=== PATIENT | male | born 1970 | race Caucasian/White ===

== ENCOUNTER 2019-10-01 16:17 | Emergency (ER) | payer BC, SELFPAY ==
--- OUTSIDE RECORDS SUMMARY | 2019-10-01 16:19 | XMS REPORT | Clinical Summary ---
:1970 Author Organization [facility] Address [address] [place] [address] Care Team Providers Name Role Phone Asked, No Pcp Primary Care Provider Unavailable Allergies Active Allergy Reactions Severity Noted Date Comments Cat Dander Shortness Of Breath High 09/21/2017 Cat's Claw (Uncaria Tomentosa) 09/21/2017 Dog Dander Shortness Of Breath High 09/21/2017 Eggshell Membrane 09/21/2017 Unknown Penicillins Rash Low 09/21/2017 Medications Medication Sig Dispensed Refills Start Date End Date Status albuterol (ACCUNEB) Take 1 ampule by 0 Active 1.25 mg/3 mL nebulization every 6 nebulizer solution (six) hours as needed for wheezing. Active Problems Not on file Encounters Date Type Specialty Care Team Description 07/31/2019 Emergency Emergency Medicine Major Winchester MD Acute lower GI bleeding Jose Pierson (Primary Dx) Daphnie Ayala MD 07/31/2019 Travel after 09/30/2018 Social History Tobacco Use Types Packs/Day Years Used Date Current Every Day Smoker 0.5 30 Smokeless Tobacco: Current User Tobacco Cessation: Ready to Quit: Yes; C ounseling Given: Yes Alcohol Use Drinks/Week oz/Week Comments No former Sex Assigned at Date Recorded Not on file Job Start Date Occupation Industry Not on file Not on file Not on file Travel History Travel Start Travel End No recent travel history available. Last Filed Vital Signs Vital Sign Reading Time Taken Comments Blood Pressure 126/83 07/31/2019 8:30 PM CDT Pulse 96 07/31/2019 8:30 PM CDT Temperature 36.6 C (97.9 F) 07/31/2019 6:37 PM CDT Respiratory Rate 18 07/31/2019 8:30 PM CDT Oxygen Saturation 99% 07/31/2019 8:30 PM CDT Inhaled Oxygen Concentration - - Weight 74.8 kg (165 lb) 07/31/2019 6:32 PM CDT Height 180.3 cm (5' 11") 07/31/2019 6:32 PM CDT Body Mass Index 23.01 07/31/2019 6:32 PM CDT Plan of Treatment Health Maintenance Due Date Last Done Comments COLONOSCOPY SCREENING 2018 SHINGLES VACCINES (#1) 2018 INFLUENZA VACCINE 11/18/2019 Procedures Procedure Name Priority Date/Time Associated Comments Diagnosis CT ABDOMEN PELVIS W STAT 07/31/2019 7:37 Resu lts for this CONTRAST PM CDT procedure are i n the results section. ESTIMATED GFR STAT 07/31/2019 6:40 Results fo r this PM CDT procedure are i n the results section. AMYLASE LEVEL STAT 07/31/2019 6:40 Results fo r this PM CDT procedure are i n the results section. COMPREHENSIVE STAT 07/31/2019 6:40 Results fo r this METABOLIC PANEL PM CDT procedure ar e in the results section. HC COMPLETE BLD COUNT STAT 07/31/2019 6:40 Re sults for this W/AUTO DIFF PM CDT procedure are i n the results section. after 09/30/[address] Abdomen Pelvis W Contrast (07/31/2019 7:37 PM CDT) Specimen Narrative Performed At EXAMINATION: CT ABDOMEN PELVIS W CONTR AST [facility] CLINICAL HISTORY: 48 yearsMale Abdominal pain rectal bleeding TECHNIQUE: Multidetector computed axial tomography of the abdomen and pelvis was preformed after the uncomplicated intraveno us administration of IV contrast utilizing automated exposure control an d/or iterative reconstruction techniques to radiation dose. Coronal and sagittal reformatted image s created at the CT scanner medical technologist blood bank were also sub mitted for interpretation. COMPARISON: None available. IMPRESSION: LUNG BASES: Clear. No pericardial effusi on. ABDOMEN: Liver: Nonenlarged without focal or suspicious hepatic mass. A 8mm hypodensity present within the dome of the liver sugge stive of simple cysts. Gallbladder/Biliary: The gallbladder is contracted but otherwise unremarkable. There is no evidence of intra or extrahe patic biliary ductal dilatation. Spleen: The spleen is not enlarged. Pancreas: The pancreas is unremarkable. Adrenal Glands: The adrenal glands are u nremarkable. Kidneys: The kidneys are unremarkable. No mass, hydron ephrosis or calculi. Vascular: The abdominal aorta is nonaneu rysmal. Nodes: No enlarged retroperitoneal or me senteric lymphadenopathy. Gastrointestinal tract: *Nonobstructive bowel gas pattern. *A few nonspecific fluid-filled loops of small bowel m ay be seen in the setting of a gastroenteritis. *A few colonic diverticula are noted without evidence of diverticulitis. *The appendix is normal. Ascites/fluid collections: No ascites or fluid collections. PELVIS: *The prostate and seminal vesicles are n ormal. *Mild prominence the wall the bladder is likely second rey to underdistention. *No inguinal hernia. *No pelvic mass, free fluid or significa nt lymphadenopathy. MUSCULOSKELETAL: *No acute or suspicious osseous abnormal ity. SUMMARY: 1.CT findings which may be seen in the setting of a ga stroenteritis, clinical correlation recommended. 2.Other findings as above. [id number] Procedure Note [facility], Radiology Results Incoming - 07/31/2019 7:53 PM CDT EXAMINATION: CT ABDOMEN PELVIS W CONTRAST CLINICAL HISTORY: 48 yearsMale Abdominal pain rectal bleeding TECHNIQUE: Multidetector computed axial tomography of the abdomen and pelvis was preformed after the uncomplicated intravenous administration of IV contrast utilizing automated exposure control and/or iterative reconstruction techniques to radiation dose. Coronal and sagittal ref ormatted images created at the CT scanner medical technologist blood bank were also submitted for interpretation. COMPARISON: None available. IMPRESSION: LUNG BASES: Clear. No pericardial effusi on. ABDOMEN: Liver: Nonenlarged without focal or susp icious hepatic mass. A 8mm hypodensity present within the dome of the liver suggestive of simple cysts. Gallbladder/Biliary: The gallbladder is contracted but otherwise unremarkable. There is no evidence of intra or extrahepatic biliary ductal dilatation. Spleen: The spleen is not enlarged. Pancreas: The pancreas is unremarkable. Adrenal Glands: The adrenal glands are u nremarkable. Kidneys: The kidneys are unremarkable. N o mass, hydronephrosis or calculi. Vascular: The abdominal aorta is nonaneu rysmal. Nodes: No enlarged retroperitoneal or me senteric lymphadenopathy. Gastrointestinal tract: *Nonobstructive bowel gas pattern. *A few nonspecific fluid-filled loops of small bowel may be seen in the setting of a gastroenteritis. *A few colonic diverticula are noted wit hout evidence of diverticulitis. *The appendix is normal. Ascites/fluid collections: No ascites or fluid collections. PELVIS: *The prostate and seminal vesicles are n ormal. *Mild prominence the wall the bladder is likely secondary to underdistention. *No inguinal hernia. *No pelvic mass, free fluid or significa nt lymphadenopathy. MUSCULOSKELETAL: *No acute or suspicious osseous abnormal ity. SUMMARY: 1.CT findings which may be seen in the s etting of a gastroenteritis, clinical correlation recommended. 2.Other findings as above. [facility]-[id number] Performing Organization Address City/State/Zipcode Phone Number [facility] [address] [place] [address] Estimated GFR (07/31/2019 6:40 PM CDT) Estimated GFR >=90 mL/min/1.73 [facility] Comment: [address] Catergory Units Interpretation [facility] G1 >=90 Normal or high CENTER G2 60-89 Mildly decreased G3a 45-59 Mildly to moderately decreas ed G3b 30-44 Moderately to severely decre ased G4 15-29 Severely decreased G5 <15 Kidney failure The eGFR was calculated using the Chronic Kidney Disea se Epidemiology Collaboration (CKD-EPI) equation. Interpretation is based on recommendations of the National Kidney Foundation-Kidney Disease Outcomes [place] lity Initiative (NKF-KDOQI) published in 2014. Specimen Performing Organization Address City/State/Zipcode Phone Number DEPARTMENT OF PATHOLOGY AND [address] [place] [address] GENOMIC MEDICINE, [facility] [address] [place], [place] [id number] [place] [address] CBC with platelet and differential (07/31/2019 6:40 PM CDT) Pathologist Sig nature WBC 11.31 (H) 4.50 - 11.00 k/uL [facility] RBC 4.95 4.40 - 6.00 m/uL [facility] HGB 15.6 14.0 - 18.0 g/dL [facility] HCT 47.1 41.0 - 51.0 % [facility] MCV 95.2 82.0 - 100.0 fL [facility] MCH 31.5 27.0 - 34.0 pg [facility] EMERGENCY [facility] MCHC 33.1 31.0 - 37.0 g/dL [facility] RDW - SD 44.5 37.0 - 55.0 fL [facility] MPV 10.6 8.8 - 13.2 fL [facility] Platelet count 227 150 - 400 k/uL [facility] Neutrophils 63.3 39.0 - 69.0 % [facility] Lymphocytes 28.1 25.0 - 45.0 % [facility] Monocytes 8.0 0.0 - 10.0 % [facility] Eosinophils 0.4 0.0 - 5.0 % [facility] Basophils 0.2 0.0 - 1.0 % [facility] Specimen Blood Performing Organization Address City/[facility]/Zipcode Phone Number DEPARTMENT OF PATHOLOGY AND [address] [place] [address] [place] [address] Amylase level (07/31/2019 6:40 PM CDT) Pathologist Sig nature Amylase 42 14 - 97 U/L [facility] Specimen Blood Performing Organization Address City/State/Zipcode Phone Number DEPARTMENT OF PATHOLOGY AND [address] [place] [address] [place] [address] Comprehensive metabolic panel (07/31/2019 6:40 PM CDT) Sodium 137 128 - 145 [facility] mEq/L [facility] Potassium 3.8 3.6 - 5.1 [facility] mEq/L [facility] CO2 28 18 - 33 mEq/L [facility] Chloride 103 98 - 108 mEq/L [facility] Glucose 101 73 - 118 mg/dL [facility] Calcium 9.6 8.0 - 10.3 [facility] mg/dL [facility] BUN 11 7 - 22 mg/dL [facility] Creatinine 0.9 0.7 - 1.2 [facility] mg/dL [facility] Alkaline phosphatase 61 53 - 128 U/L [facility] ALT 25 10 - 47 U/L [facility] AST 21 11 - 38 U/L [facility] Total bilirubin 0.7 0.2 - 1.6 [facility] mg/dL [facility] Albumin 4.5 3.3 - 5.5 g/dL [facility] Protein 7.1 6.4 - 8.1 g/dL [facility] Anion gap 6@ANIO (L) 7 - 15 mEq/L [facility] A/G ratio 1.7 0.7 - 3.8 [facility] Specimen Blood Performing Organization Address City/[facility]/Zipcode Phone Number DEPARTMENT OF PATHOLOGY AND [address] [facility] [place] [address] GENOMIC MEDICINE, [facility] [address] after 09/30/2018 Insurance Payer Benefit Plan / Subscriber ID Effective Phone Address T ype Group Dates COMMERCIAL MISC MISC COMMERCIAL xxxxxxxxx 2019-Pres Commercial ent Advance Directives For more information, please contact: [phone] Type Date Recorded Patient Yarn Man Explanati on Advance Directives, Living Will 09/21/2017 5:25 PM and Medical Power of Radiology Technician
--- OUTSIDE RECORDS SUMMARY | 2019-10-01 16:20 | XMS REPORT | Continuity of Care Document ---
:1970 Author Organization [facility] t Address [address] [place] [address] Care Team Providers Name Role Phone Asked, Pcp Primary Care Physician Unavailable Melany Winchester MD Attending Clinician Kenna CLARKE, Daphnie Ayala Attending Clinician [phone] Payers Payer Name Policy Type Policy Number Effective Date Expiration Date S ource COMMERCIAL xxxxxxxxx 2019 [place] MISCMISC 00:00:00 [facility] COMMERCIALxxxxxx xxx4/-Pre sentCommercial Problems This patient has no known problems. Allergies, Adverse Reactions, Alerts Allergy Allergy Status Severity Reaction(s) Onset Inactive Treating Comm ents Source Name Type Date Date Clinician Cat Propensi Active Shortness Of [place] Dander ty to Breath 6-05 [facility] adverse 00:00: st reaction 00 s to drug Cat's Propensi Active [place] Claw ty to 6-05 [facility] (Uncaria adverse 00:00: st Tomentos reaction 00 a) s to drug Dog Propensi Active Shortness [place] Dander ty to Breath 6-05 [facility] adverse 00:00: st reaction 00 s to drug Eggshell Propensi Active Unknown [place] Membrane ty to 6-05 [facility] adverse 00:00: st reaction 00 s to drug Penicill Propensi Active Rash [place] ins ty to 6-05 [facility] adverse 00:00: st reaction 00 s to drug Social History Social Habit Start Date Stop Date Quantity Comments Source Sex Assigned At [facility] ethodist Cigarettes smoked 2019-07-31 2019-07-31 Mera [facility] current (pack per 00:00:00 00:00:00 day) - Reported Cigarette 2019-07-31 2019-07-31 Ede Kwon ist pack-years 00:00:00 00:00:00 Alcohol intake 2019-07-31 2019-07-31 Current Ede Casiano thodist 00:00:00 00:00:00 non-drinker of alcohol (finding) Alcohol Comment 2017-09-21 2017-09-21 former Ede Serrano ethodist 00:00:00 00:00:00 Smoking Status Start Date Stop Date Source Current every day smoker 2019-07-31 00:00:00 Sonali ston [facility] Medications Ordered Filled Start Stop Current Ordering Indication Dosage Frequency Signature Comments Components Source Medication Medication Date Date Medication? Clinician (SIG) Name Name albuterol Yes 1{ampul Q6H Take 1 Sonali ston (ACCUNEB) 6-05 e} ampule by Metho di 1.25 mg/3 17:38: nebulizati st mL 27 on every 6 nebulizer (six) solution hours as needed for wheezing. Vital Signs Vital Name Observation Time Observation Value Comments Source Systolic blood 2019-07-31 20:30:00 126 mm[Hg] Hanna n [facility] pressure Diastolic blood 2019-07-31 20:30:00 83 mm[Hg] Kendra on [facility] pressure Heart rate 2019-07-31 20:30:00 96 /min Mera [facility] Respiratory rate 2019-07-31 20:30:00 18 /min Tutu hopson [facility] Oxygen saturation in 2019-07-31 20:30:00 99 /min Ede Lucas Arterial blood by Pulse oximetry Body temperature 2019-07-31 18:37:00 36.61 Ariadna Tutu ton [facility] Body height 2019-07-31 18:32:00 180.3 cm Mera [facility] Body weight 2019-07-31 18:32:00 74.844 kg Ede [facility] BMI 2019-07-31 18:32:00 23.01 kg/m2 Ede Lucas Procedures Procedure Date / Time Performed Performing Clinician Ger e CT ABDOMEN PELVIS W 2019-07-31 19:37:49 Cameron Winchester CONTRAST HC COMPLETE BLD COUNT 2019-07-31 18:40:00 Cameron Winchester W/AUTO DIFF COMPREHENSIVE METABOLIC 2019-07-31 18:40:00 Cameron Winchester [facility] PANEL AMYLASE LEVEL 2019-07-31 18:40:00 Cameron Winchester Sc thodist ESTIMATED GFR 2019-07-31 18:40:00 Cameron Winchester Sc thodist Plan of Care Planned Activity Planned Date Details Comments Source Future Scheduled 2019-11-18 INFLUENZA VACCINE [place] [facility] Test 00:00:00 [code = INFLUENZA VACCINE] Future Scheduled 2018 COLONOSCOPY SCREENING [place] [facility] Test 00:00:00 [code = COLONOSCOPY SCREENING] Future Scheduled 2018 SHINGLES VACCINES [place] [facility] Test 00:00:00 (#1) [code = SHINGLES VACCINES (#1)] Encounters Start End Encounter Admission Attending Care Care Encounter Source Date/Time Date/Time Type Type Clinicians Facility Department ID 2019-07-31 2019-07-31 Emergency KENNA, [facility] [id number] [place] 00:00:00 00:00:00 BETTY Haile Method i st Results Test Description Test Time Test Comments Results Result Comments Source Comprehensive metabolic panel 2019-07-31 22:31:29 Test Item Value Reference Range Interpretation Comme nts Sodium (test code = 2951-2) 137 128- 145 mEq/L Potassium (test code = 2823-3) 3.8 3.6- 5.1 mEq/L CO2 (test code = 2027-9) 28 18- 33 mEq/L Chloride (test code = 2075-0) 103 98- 108 mEq/L Glucose (test code = 2345-7) 101 mg/dL 73-118 Calcium (test code = 50366-8) 9.6 mg/dL 8-10.3 BUN (test code = 3094-0) 11 mg/dL 7-22 Creatinine (test code = 2160-0) 0.9 mg/dL 0.7-1.2 Alkaline phosphatase (test code = 6768-6) 61 U/L 53-128 ALT (test code = 1742-6) 25 U/L 10-47 AST (test code = 1920-8) 21 U/L 11-38 Total bilirubin (test code = 1975-2) 0.7 mg/dL 0.2-1.6 Albumin (test code = 1751-7) 4.5 g/dL 3.3-5.5 Protein (test code = 2885-2) 7.1 g/dL 6.4-8.1 Anion gap (test code = 42416-2) 6@ANIO 7- 15 mEq/L L A/G ratio (test code = 1759-0) 1.7 0.7-3.8 Lab Interpretation (test code = 78177-5) Abnormal [place] MethodistAmylase [id number] 22:31:29 Test Item Value Reference Range Interpretation Comments Amylase (test code = 1798-8) 42 U/L 14-97 [place] MethodistCBC with platelet and [id number] 22:31:29 Test Item Value Reference Range Interpretation Comments WBC (test code = 75727-8) 11.31 4.50- 11.00 k/uL H RBC (test code = 36670-9) 4.95 m/uL 4.4-6 HGB (test code = 718-7) 15.6 g/dL 14-18 HCT (test code = 4544-3) 47.1 % 41-51 MCV (test code = 787-2) 95.2 fL 82-100 MCH (test code = 785-6) 31.5 pg 27-34 MCHC (test code = 786-4) 33.1 g/dL 31-37 RDW - SD (test code = 46869-1) 44.5 fL 37-55 MPV (test code = 09503-2) 10.6 fL 8.8-13.2 Platelet count (test code = 227 150- 400 k/uL 13106-4) Neutrophils (test code = 05226-9) 63.3 % 39-69 Lymphocytes (test code = 18496-7) 28.1 % 25-45 Monocytes (test code = 14821-8) 8.0 % 0-10 Eosinophils (test code = 80084-7) 0.4 % 0-5 Basophils (test code = 48519-5) 0.2 % 0-1 Lab Interpretation (test code = Abnormal 52823-2) [place] MethodistEstimated [id number] 22:31:29 Test Item Value Reference Range Interpretation Comments Estimated GFR (test >=90 mL/min/1.73 m2 Caterg ory Units code = 5488) InterpretationG 1 >=90 Normal or highG2 60-89 Mildly [id number] 45-59 Mildly to mode rately [id number] 30-44 Moderately to severely decreasedG4 15-29 Severely decre asedG5 <15 Kidn ey failureThe eGFR was calculated usin g the Chronic Kidney Disease Epidemiology Co llaboration (CKD-EPI) equat ion. Interpretation is based on recommendations of the National Kidney Foundation-Kidn ey Disease Outcomes Qualit y Initiative (NKF-KDOQI) pub lished in 2013. [place] MethodistCT Abdomen Pelvis W [id number] 19:50:40Hm Interface, Radiology Results 07/31/2019 7:53 PM CDTEXAMINATION: CT ABDOMEN PELVIS W CONTRASTCLINICAL HISTORY: 48 yearsMale Abdominal pain rectal bleedingTECHNIQUE: Multidetector computed axial tomography of the abdomen and pelvis was preformed after the uncomplicated intravenous administration of IV contrast utilizing automated exposure control and/or iterative reconstruction techniques to radiation dose. Coronal and sagittal reformatted images created at the CT scanner cytogenetic technologist were also submitted for interpretation.COMPARISON: None available.IMPRESSION:LUNG BASES:Clear. No pericardial effusion. ABDOMEN:Liver: Nonenlarged without focal or suspicious hepatic mass. A 8mm hypodensity present within the dome of the liver suggestive of simple cysts.Gallbladder/Biliary: The gallbladder is contracted but otherwise unremarkable. There is no evidence of intra or extrahepatic biliary ductal dilatation.Spleen: The spleen is not enlarged.Pancreas: The pancreas is unremark able.Adrenal Glands: The adrenal glands are unremarkable.Kidneys: The kidneys are unremarkable. No mass, hydronephrosis or calculi.Vascular: The abdominal aorta is nonaneurysmal.Nodes: No enlarged retroperitoneal or mesenteric lymphadenopathy.Gastrointestinal tract: *Nonobstructive bowel gas pattern.*A few nonspecific fluid-filled loops of small bowel may be seen in the setting of a gastroenteritis. *A few colonic diverticula are noted without evidence of diverticulitis. *The appendix is normal.Ascites/fluid collections: No ascites or fluid collections.PELVIS: *The prostate and seminal vesicles arenormal.*Mild prominence the wall the bladder is likely secondary to underdistention. *No inguinal hernia. *No pelvic mass, free fluid or significant lymphadenopathy. MUSCULOSKELETAL: *No acute or suspicious osseous abnormality. SUMMARY:1.CT findings which may be seen in the setting of a gastroenteritis, clinical correlation recommended. 2.Other findings as above. [facility]-[id number] [facility]
--- NOTE | 2019-10-01 16:51 | ER ---
Nurse's Notes [facility] Name: Daryn Ramos Jr Age: 48 yrs Sex: Male : 1970 Arrival Date: 10/01/2019 Time: 16:18 Bed Waiting Private MD: Diagnosis: Assessment: 09/30 16:50 Reassessment: registration states pt eloped from lobby at 1630. iw ED Course: 16:18 Patient arrived in ED. as Administered Medications: No medications were administered Outcome: 16:51 Patient left the ED. iw Signatures: Krupa Tavares as Meghan Borges, RN RN iw
== END 2019-10-01 16:51 | disposition left against medical advice (07) ==
LOC: ER 16:17
DX: Z02.89 Encounter for other administrative examinations (principal)

== ENCOUNTER 2019-12-02 16:28 | Emergency (ER) | payer OTHER, SELFPAY ==
--- OUTSIDE RECORDS SUMMARY | 2019-12-02 16:31 | XMS REPORT | Continuity of Care Document ---
:1970 Author Organization [facility] t Address [address] [place] [address] Care Team Providers Name Role Phone Asked, Pcp Primary Care Physician Unavailable Carlos PULIDO Attending Clinician Melany Winchester MD Attending Clinician Daphnie Pierson MD Attending Clinician [phone] Payers Payer Name Policy Type Policy Number Effective Date Expiration Date S ource COMMERCIAL xxxxxxxxx 2019 [place] MISCMISC 00:00:00 [facility] COMMERCIALxxxxxx xx2019-Pre sentCommercial Problems This patient has no known problems. Allergies, Adverse Reactions, Alerts Allergy Allergy Status Severity Reaction(s) Onset Inactive Treating Comm ents Source Name Type Date Date Clinician Cat Propensi Active Shortness Of [place] Dander ty to Breath 09-21 [facility] adverse 00:00: st reaction 00 s to drug Cat's Propensi Active Mera Claw ty to 09-21 [facility] (Uncaria adverse 00:00: st Tomentos reaction 00 a) s to drug Dog Propensi Active Shortness Of [place] Dander ty to Breath 09-21 [facility] adverse 00:00: st reaction 00 s to drug Eggshell Propensi Active Unknown [place] Membrane ty to 09-21 [facility] adverse 00:00: st reaction 00 s to drug Penicill Propensi Active Rash [place] ins ty to 09-21 Method[facility] adverse 00:00: st reaction 00 s to drug Social History Social Habit Start Date Stop Date Quantity Comments Source Sex Assigned At Ede Serrano ethodist Cigarettes smoked 2019-10-01 2019-10-01 Mera Catholic current (pack per 00:00:00 00:00:00 day) - Reported Cigarette 2019-10-01 2019-10-01 Ede Kwon ist pack-years 00:00:00 00:00:00 Alcohol intake 2019-10-01 2019-10-01 Current Ede Casiano thodist 00:00:00 00:00:00 non-drinker of alcohol (finding) Alcohol Comment 2017-09-21 2017-09-21 former Ede Serrano ethodist 00:00:00 00:00:00 Smoking Status Start Date Stop Date Source Current every day smoker 2019-10-01 00:00:00 Sonali ston [facility] Medications Ordered Filled Start Stop Current Ordering Indication Dosage Frequency Signature Comments Components Source Medication Medication Date Date Medication? Clinician (SIG) Name Name predniSONE 40mg QD Take 4 [place] (DELTASONE) 09-30 tablets Meth jayshree 10 mg 00:00: 23:59 ([address] tablet 00 :00 total) by mouth daily for 5 days. albuterol Yes 1{ampul Q6H Take 1 Sonali ston (ACCUNEB) 05 e} ampule by Metho di 1.25 mg/3 17:38: nebulizati st mL 27 on every 6 nebulizer (six) solution hours as needed for wheezing. Vital Signs Vital Name Observation Time Observation Value Comments Source Systolic blood 2019-10-01 17:32:14 124 mm[Hg] [place] [facility] pressure Diastolic blood 2019-10-01 17:32:14 81 mm[Hg] [place] [facility] pressure Heart rate 2019-10-01 17:32:14 86 /min [facility] Body temperature 2019-10-01 17:32:14 36.72 [place] [facility] Respiratory rate 2019-10-01 17:32:14 20 /min [place] [facility] Oxygen saturation in 2019-10-01 17:32:14 96 /min Mera Catholic Arterial blood by Pulse oximetry Body height 2019-10-01 17:32:00 180.3 cm Mera Catholic Body weight 2019-10-01 17:32:00 74.844 kg Mera Catholic BMI 2019-10-01 17:32:00 23.01 kg/m2 Ede Lucas Procedures Procedure Date / Time Performed Performing Clinician Sourc e XR CHEST 2 VW 2019-10-01 17:54:33 Leah Wilson [address] od[address] CT ABDOMEN PELVIS W 2019-07-31 19:37:49 Cameron Winchester CONTRAST HC COMPLETE BLD COUNT 2019-07-31 18:40:00 Cameron Winchester W/AUTO DIFF COMPREHENSIVE METABOLIC 2019-07-31 18:40:00 Cameron Winchester PANEL AMYLASE LEVEL 2019-07-31 18:40:00 Cameron Winchester Me thodist ESTIMATED GFR 2019-07-31 18:40:00 Cameron Winchester Me thodist Plan of Care Planned Activity Planned Date Details Comments Source Future Scheduled 2019-12-19 INFLUENZA VACCINE [place] [facility] Test 00:00:00 [code = INFLUENZA VACCINE] Future Scheduled 2018 COLONOSCOPY SCREENING [place] [facility] Test 00:00:00 [code = COLONOSCOPY SCREENING] Future Scheduled 2018 SHINGLES VACCINES [place] [facility] Test 00:00:00 (#1) [code = SHINGLES VACCINES (#1)] Encounters Start End Encounter Admission Attending Care Care Encounter Source Date/Time Date/Time Type Type Clinicians Facility Department ID 2019-10-01 2019-10-01 Emergency CARLOS [facility] [id number] [place] 00:00:00 00:00:00 LEAH [address] 2019-07-31 2019-07-31 Emergency [place] [id number] [place] 00:00:00 00:00:00 BETTY Haile [facility] Results Test Description Test Time Test Comments Results Result Sourc e Comments XR Chest 2 Vw 2019-09-18 [facility] [place] [address] 17:55:23 10/01/2019 5:58 PM CDTEXAMINATION: XR CHEST 2 VWCLINICAL HISTORY: sobCOMPARISON: To previous study from 09/21/2017IMPRESSION:The cardiomediastinal silhouette is normal in appearance.The lungs are clear. There is no evidence of consolidation, congestion, or pneumothorax.A pleural effusion is not present.Visualized skeletal structures demonstrate no definite abnormality.The lungs are severely hyperinflated consistent with emphysematous changes.[facility]-[id number] F Comprehensive metabolic panel 2019-07-31 22:31:29 Test Item Value Reference Range Interpretation Comme nts Sodium (test code = 2951-2) 137 128- 145 mEq/L Potassium (test code = 2823-3) 3.8 3.6- 5.1 mEq/L CO2 (test code = 2027-9) 28 18- 33 mEq/L Chloride (test code = 2075-0) 103 98- 108 mEq/L Glucose (test code = 2345-7) 101 mg/dL 73-118 Calcium (test code = 63041-6) 9.6 mg/dL 8-10.3 BUN (test code = 3094-0) 11 mg/dL 7-22 Creatinine (test code = 2160-0) 0.9 mg/dL 0.7-1.2 Alkaline phosphatase (test code = 6768-6) 61 U/L 53-128 ALT (test code = 1742-6) 25 U/L 10-47 AST (test code = 1920-8) 21 U/L 11-38 Total bilirubin (test code = 1974-2) 0.7 mg/dL 0.2-1.6 Albumin (test code = 1751-7) 4.5 g/dL 3.3-5.5 Protein (test code = 2885-2) 7.1 g/dL 6.4-8.1 Anion gap (test code = 53987-3) 6@ANIO 7- 15 mEq/L L A/G ratio (test code = 1759-0) 1.7 0.7-3.8 Lab Interpretation (test code = 96003-5) Abnormal [place] MethodistAmylase [id number] 22:31:29 Test Item Value Reference Range Interpretation Comments Amylase (test code = 1798-8) 42 U/L 14-97 [place] MethodistCBC with platelet and [id number] 22:31:29 Test Item Value Reference Range Interpretation Comments WBC (test code = 64651-1) 11.31 4.50- 11.00 k/uL H RBC (test code = 93775-5) 4.95 m/uL 4.4-6 HGB (test code = 718-7) 15.6 g/dL 14-18 HCT (test code = 4544-3) 47.1 % 41-51 MCV (test code = 787-2) 95.2 fL 82-100 MCH (test code = 785-6) 31.5 pg 27-34 MCHC (test code = 786-4) 33.1 g/dL 31-37 RDW - SD (test code = 72647-6) 44.5 fL 37-55 MPV (test code = 86858-2) 10.6 fL 8.8-13.2 Platelet count (test code = 227 150- 400 k/uL 96687-6) Neutrophils (test code = 00968-2) 63.3 % 39-69 Lymphocytes (test code = 21911-3) 28.1 % 25-45 Monocytes (test code = 99324-4) 8.0 % 0-10 Eosinophils (test code = 46116-7) 0.4 % 0-5 Basophils (test code = 43822-9) 0.2 % 0-1 Lab Interpretation (test code = Abnormal 88907-7) [place] MethodistEstimated [id number] 22:31:29 Test Item Value Reference Range Interpretation Comments Estimated GFR (test >=90 mL/min/1.73 m2 Caterg ory Units code = 5488) InterpretationG 1 >=90 Normal or highG2 60-89 Mildly ythxhpsagH8l 45-59 Mildly to mode rately [id number] 30-44 Moderately to severely decreasedG4 15-29 Severely decre asedG5 <15 Kidn ey failureThe eGFR was calculated usin g the Chronic Kidney Disease Epidemiology Co llaboration (CKD-EPI) equat ion. Interpretation is based on recommendations of the National Kidney Foundation-Kidn ey Disease Outcomes Qualit y Initiative (NKF-KDOQI) pub lished in 2014. [place] MethodistCT Abdomen Pelvis W [id number] 19:50:40Hm Interface, Radiology Results 07/31/2019 7:53 PM CDTEXAMINATION: CT ABDOMEN PELVIS W CONTRASTCLINICAL HISTORY: 48 yearsMale Abdominal pain rectal bleedingTECHNIQUE: Multidetector computed axial tomography of the abdomen and pelvis was preformed after the uncomplicated intravenous administration of IV contrast utilizing automated exposure control and/or iterative reconstruction techniques to radiation dose. Coronal and sagittal reformatted images created at the CT scanner tissue technologist were also submitted for interpretation.COMPARISON: None [...] clinical correlation recommended. 2.Other findings as above. [facility]-[id number] Ede Lucas
--- OUTSIDE RECORDS SUMMARY | 2019-12-02 16:31 | XMS REPORT | Clinical Summary ---
:1970 Author Organization [facility] Address [address] [place] [id number] Care Team Providers Name Role Phone Asked, No Pcp Primary Care Provider Unavailable Allergies Active Allergy Reactions Severity Noted Date Comments Cat Dander Shortness Of Breath High 09/21/2017 Cat's Claw (Uncaria Tom[place]) 09/21/2017 Dog Dander Shortness Of Breath High 09/21/2017 Eggshell Membrane 09/21/2017 Unknown Penicillins Rash Low 09/21/2017 Medications Medication Sig Dispensed Refills Start Date End Date Status albuterol Take 1 ampule by 0 Act nica (ACCUNEB) 1.25 nebulization every mg/3 mL nebulizer 6 (six) hours as solution needed for wheezing. predniSONE Take 4 tablets (40 20 tablet 0 10/01/2019 0 (DELTASONE) 10 mg mg total) by mouth tablet daily for 5 days. Active Problems Not on file Encounters Date Type Specialty Care Team Description 10/01/2019 Emergency Emergency Medicine Leah Wilson DO [place] exacerbation (HCC) (Primary Dx) 10/01/2019 Travel 07/31/2019 Emergency Emergency Medicine Major Winchester MD Acute lower GI bleeding Jose Pierson (Primary Dx) Daphnie Ayala MD 07/31/2019 Travel after 12/01/2018 Social History Tobacco Use Types Packs/Day Years [...] Sign Reading Time Taken Comments Blood Pressure 124/81 10/01/2019 5:32 PM CDT Pulse 86 10/01/2019 5:32 PM CDT Temperature 36.7 C (98.1 F) 10/01/2019 5:32 PM CDT Respiratory Rate 20 10/01/2019 5:32 PM CDT Oxygen Saturation 96% 10/01/2019 5:32 PM CDT Inhaled Oxygen Concentration - - Weight 74.8 kg (165 lb) 10/01/2019 5:32 PM CDT Height 180.3 cm (5' 11") 10/01/2019 5:32 PM CDT Body Mass Index 23.01 10/01/2019 5:32 PM CDT Plan of Treatment Health Maintenance Due Date Last Done Comments COLONOSCOPY SCREENING 2018 SHINGLES VACCINES (#1) 2018 INFLUENZA VACCINE 12/19/2019 Procedures Procedure Name Priority Date/Time Associated Comments Diagnosis XR CHEST 2 VW STAT 10/01/2019 5:54 Results fo r this PM CDT procedure are i n the results section. CT ABDOMEN PELVIS W STAT 07/31/2019 7:37 [...] are i n the results section. after 12/01/2018 Results XR Chest 2 Vw (10/01/2019 5:54 PM CDT) Specimen Narrative Performed At EXAMINATION: XR CHEST 2 VW [facility] CLINICAL HISTORY: sob COMPARISON: To previous study from 09/21 IMPRESSION: The cardiomediastinal silhouette is norm al in appearance. The lungs are clear. There is no evidence of consolida tion, congestion, or pneumothorax. A pleural effusion is not present. Visualized skeletal structures demonstra te no definite abnormality. The lungs are severely hyperinflated consistent with e mphysematous changes. [facility]-[id number] Procedure Note Hm Interface, Radiology Results Incoming - 10/01/2019 5:58 PM CDT EXAMINATION: XR CHEST 2 VW CLINICAL HISTORY: sob COMPARISON: To previous study from 2017 IMPRESSION: The cardiomediastinal silhouette is norm al in appearance. The lungs are clear. There is no evidenc e of consolidation, congestion, or pneumothorax. A pleural effusion is not present. Visualized skeletal structures demonstra te no definite abnormality. The lungs are severely hyperinflated con sistent with emphysematous changes. [facility]-[id number] Performing Organization Address City/State/Zipcode Phone Number [facility] [address] [place] [address] CT Abdomen Pelvis W Contrast (07/31/2019 7:37 PM CDT) Specimen Narrative Performed At EXAMINATION: CT ABDOMEN PELVIS W CONTR AST MARY ANN MADRIGAL CLINICAL HISTORY: 48 yearsMale Abdominal pain rectal bleeding TECHNIQUE: Multidetector computed axial tomography of the abdomen and pelvis was preformed after the uncomplicated intraveno us administration of IV contrast utilizing automated exposure control an d/or iterative reconstruction techniques to radiation dose. Coronal and sagittal reformatted image s created at the CT scanner industrial technologist were also sub mitted for interpretation. COMPARISON: [...] clinical correlation recommended. 2.Other findings as above. [facility]-[id number] Procedure Note Interface, Radiology Results Incoming - 07/31/2019 7:53 PM [...] ormatted images created at the CT scanner industrial technologist were also submitted for interpretation. COMPARISON: None [...] clinical correlation recommended. 2.Other findings as above. [facility]-[id number] Performing Organization Address City/State/Zipcode Phone Number [facility] [address] [place] [id number] Estimated GFR (07/31/2019 6:40 PM CDT) Estimated GFR >=90 mL/min/1.73 [place] Comment: m2 [facility] Catergory Units Interpretation [facility] G1 [...] DEPARTMENT OF PATHOLOGY AND [address] [place] [address] GENOMIC MEDICINE, [facility] [address] CBC with platelet and differential (07/31/2019 6:40 PM CDT) Pathologist Sig nature WBC 11.31 (H) 4.50 - 11.00 k/uL [facility] [place] RBC 4.95 4.40 - 6.00 m/uL [facility] HGB 15.6 14.0 - 18.0 g/dL [facility] HCT 47.1 41.0 - 51.0 % [facility] MCV 95.2 82.0 - 100.0 fL [facility] EMERGENCY [facility] MCH 31.5 27.0 - 34.0 pg [facility] MCHC 33.1 31.0 - 37.0 g/dL [facility] RDW - SD 44.5 37.0 - 55.0 fL [facility] MPV 10.6 8.8 - 13.2 fL [facility] Platelet count 227 150 - 400 k/uL [facility] Neutrophils 63.3 39.0 - 69.0 % [facility] Lymphocytes 28.1 25.0 - 45.0 % [facility] Monocytes 8.0 0.0 - 10.0 % [facility] Eosinophils 0.4 0.0 - 5.0 % [facility] Basophils 0.2 0.0 - 1.0 % [facility] Specimen Blood Performing Organization Address City/State/Zipcode Phone Number DEPARTMENT OF PATHOLOGY AND [address] [place] [address] [address] Amylase level (07/31/2019 6:40 PM CDT) Pathologist Sig nature Amylase 42 14 - 97 U/L [facility] Specimen Blood Performing Organization Address City/State/Zipcode Phone Number DEPARTMENT OF PATHOLOGY AND [address] Comprehensive metabolic panel (07/31/2019 6:40 PM CDT) Sodium 137 128 - 145 [facility] mEq/L [facility] Potassium 3.8 3.6 - 5.1 [facility] mEq/L [facility] CO2 28 18 - 33 mEq/L [facility] Chloride 103 98 - 108 mEq/L [facility] Glucose 101 73 - 118 mg/dL [facility] Calcium 9.6 8.0 - 10.3 [facility] mg/dL [facility] BUN 11 7 - 22 mg/dL [facility] Creatinine 0.9 0.7 - 1.2 [facility] mg/dL [facility] Alkaline phosphatase 61 53 - 128 U/L [facility] ALT 25 10 - 47 U/L [facility] AST 21 11 - 38 U/L [facility] Total bilirubin 0.7 0.2 - 1.6 [facility] mg/dL [facility] Albumin 4.5 3.3 - 5.5 g/dL [facility] Protein 7.1 6.4 - 8.1 g/dL [facility] Anion gap 6@ANIO (L) 7 - 15 mEq/L [facility] A/G ratio 1.7 0.7 - 3.8 [facility] Specimen Blood Performing Organization Address City/State/Zipcode Phone Number DEPARTMENT OF PATHOLOGY AND [address] [place] [address] [facility]OMIC MEDICINE, [facility] [address] after 12/01/2018 Insurance Payer Benefit Plan / Subscriber ID Effective Phone Address T ype Group Dates COMMERCIAL MISC MISC COMMERCIAL xxxxxxxxx 2019-Pres Commercial ent Advance Directives For more information, please contact: [phone] Type Date Recorded Patient Invoice Clerk Explanati on Advance Directives, Living Will 09/21/2017 5:25 PM and Medical Power of Mgmt Analyst
[2019-12-02] MEDS ORDERED: LORAZEPAM 1 MG TABLET ONE (17:01)
--- NOTE | 2019-12-02 17:01 | RAD REPORT ---
EXAM DESCRIPTION: RAD - Chest Single View - 12/02/2019 4:49 pm CLINICAL HISTORY: COPD Chest pain. COMPARISON: Chest Pa And Lat (2 Views) dated 10/21/2015; Chest Pa And Lat (2 Views) dated 09/17/2015; C HEST PA AND LAT 2 VIEW dated 07/05/2015; CHEST SINGLE VIEW dated 05/15/2015 FINDINGS: Portable technique limits examination quality. The lungs are emphysematous but grossly clear. The heart is normal in size. No displaced fractures. IMPRESSION: Mild COPD.
[2019-12-02 17:04] LABS: Basophils % 1.1 % (0-1.3); Lymphocytes % 31.8 % (15.3-44.8); MPV 8.9 fL (7.6-11.3); RBC Red Blood Cell Count 4.52 M/uL (4.33-5.43)
[2019-12-02 17:05] LABS: Protime INR 0.97
[2019-12-02 17:21] LABS: ALT/SGPT 94 U/L (12-78); AST/SGOT 30 U/L (15-37); Albumin 3.7 g/dL (3.4-5.0); Alkaline Phosphatase 75 U/L (45-117); BUN Blood Urea Nitrogen 13 mg/dL (7-18); Bicarbonate 27 mmol/L (21-32); Bilirubin Direct 0.1 mg/dL (0-0.2); Bilirubin Total 0.4 mg/dL (0.2-1.0); Glucose Level 112 mg/dL (74-106); Magnesium 2.2 mg/dL (1.8-2.4); NT PRO-BNP 41 pg/mL (<125); Potassium 3.7 mmol/L (3.5-5.1); Protein, Total 6.8 g/dL (6.4-8.2); Sodium Level 142 mmol/L (136-145); Troponin (Emerg Dept Use Only) < 0.02 ng/mL (0.0-0.045)
[2019-12-02 18:13] LABS: Thyroid Stimulating Hormone 4.56 uIU/mL (0.360-3.740)
--- NOTE | 2019-12-02 18:51 | RAD REPORT ---
EXAM DESCRIPTION: CT - Chest For Pe Angio - 12/02/2019 6:12 pm CLINICAL HISTORY: Chest pain. COPD;Dyspnea COMPARISON: No comparisons TECHNIQUE: CT angiogram of the pulmonary arteries was performed with MIP. All CT scans are performed using dose optimization technique as appropriate and may include automated exposure control or mA/KV adjustment according to patient size. FINDINGS: No evidence of pulmonary thromboembolism. No acute aortic finding demonstrated. Mild diffuse COPD is present. No significant pericardial or pleural fluid. No concerning bony finding. IMPRESSION: No evidence of pulmonary thromboembolism. Mild diffuse COPD.
--- NOTE | 2019-12-02 19:26 | EDPHYS ---
Physician Documentation [facility] Name: Daryn Ramos Jr Age: 49 yrs Sex: Male : 1970 Arrival Date: 12/02/2019 Time: 16:29 Bed 5 Private MD: ED Physician Bobby Banks HPI: 12/01 16:40 This 49 yrs old Male presents to ER via Unassigned with complaints of snw Breathing Difficulty. 16:40 The patient has shortness of breath at rest. Onset: The symptoms/episode began/occurred snw suddenly, on awakening. Duration: The symptoms are continuous. The patient's shortness of breath is aggravated by coughing, light activity. Associated signs and symptoms: The patient has no apparent associated signs or symptoms. Severity of symptoms: At their worst the symptoms were severe in the emergency department the symptoms are unchanged. It is unknown whether or not the patient has had similar symptoms in the past. The patient has not recently seen a physician. stopped smoking October 03, 2019. Historical: - Allergies: 16:42 EGG/POULTRY; ph 16:42 PENICILLINS; ph - PMHx: 16:42 Anxiety; Asthma; COPD; ph - PSHx: 16:42 None; ph - Immunization history:: Adult Immunizations unknown. - Social history:: Smoking status: Patient/guardian denies using tobacco, Stopped _ months ago 2. ROS: 16:38 Eyes: Negative for injury, pain, redness, and discharge, ENT: Negative for injury, snw pain, and discharge, Neck: Negative for injury, pain, and swelling, Cardiovascular: Negative for chest pain, palpitations, and edema, Abdomen/GI: Negative for abdominal pain, nausea, vomiting, diarrhea, and constipation, Back: Negative for injury and pain, : Negative for injury, bleeding, discharge, and swelling, MS/Extremity: Negative for injury and deformity, Skin: Negative for injury, rash, and discoloration, Neuro: Negative for headache, weakness, numbness, tingling, and seizure, Psych: Negative for depression, anxiety, suicide ideation, homicidal ideation, and hallucinations. 16:38 Constitutional: Positive for :"can't catch my breath". 16:38 Respiratory: Positive for cough, orthopnea, shortness of breath, at rest. Exam: 16:38 Constitutional: This is a well developed, well nourished patient who is awake, alert, snw and anxious. Head/Face: Normocephalic, atraumatic. Eyes: Pupils equal round and reactive to light, extra-ocular motions intact. Lids and lashes normal. Conjunctiva and sclera are non-icteric and not injected. Cornea within normal limits. Periorbital areas with no swelling, redness, or edema. ENT: Nares patent. No nasal discharge, no septal abnormalities noted. Tympanic membranes are normal and external auditory canals are clear. Oropharynx with no redness, swelling, or masses, exudates, or evidence of obstruction, uvula midline. Mucous membranes moist. Neck: Trachea midline, no thyromegaly or masses palpated, and no cervical lymphadenopathy. Supple, full range of motion without nuchal rigidity, or vertebral point tenderness. No Meningismus. Chest/axilla: Normal chest wall appearance and motion. Nontender with no deformity. No lesions are appreciated. Cardiovascular: Regular rate and rhythm with a normal S1 and S2. No gallops, murmurs, or rubs. Normal PMI, no JVD. No pulse deficits. Respiratory: Lungs have equal breath sounds bilaterally, clear to auscultation and percussion. No rales, rhonchi or wheezes noted. No increased work of breathing, no retractions or nasal flaring. Abdomen/GI: Soft, non-tender, with normal bowel sounds. No distension or tympany. No guarding or rebound. No evidence of tenderness throughout. Back: No spinal tenderness. No costovertebral tenderness. Full range of motion. Skin: Warm, dry with normal turgor. Normal color with no rashes, no lesions, and no evidence of cellulitis. MS/ Extremity: Pulses equal, no cyanosis. Neurovascular intact. Full, normal range of motion. Neuro: Awake and alert, GCS 15, oriented to person, place, time, and situation. Cranial nerves II-XII grossly intact. Motor strength 5/5 in all extremities. Sensory grossly intact. Cerebellar exam normal. Normal gait. Psych: Awake, alert, with orientation to person, place and time. Behavior, mood, and affect are within normal limits. Vital Signs: 16:40 BP 124 / 95; Pulse 86; Resp 26; Temp 98.8; Pulse Ox 100% on R/A; Weight 79.38 kg; ph Height 5 ft. 11 in. (180.34 cm); Pain 0/10; 17:35 BP 100 / 82; Pulse 80; Resp 16; Pulse Ox 100% ; sv 18:30 BP 119 / 81; Pulse 78; Resp 12; Pulse Ox 100% on R/A; Pain 0/10; hb 19:30 BP 117 / 97; Pulse 74; Resp 16; Pulse Ox 98% on R/A; jb4 16:40 Body Mass Index 24.41 (79.38 kg, 180.34 cm) ph MDM: 16:33 Patient medically screened. aidee 23:39 Data reviewed: vital signs, nurses notes. Data interpreted: Pulse oximetry: on room air snw is 98 %. Interpretation: normal. Counseling: I had a detailed discussion with the patient and/or guardian regarding: the historical points, exam findings, and any diagnostic results supporting the discharge/admit diagnosis, lab results, radiology results, the need for outpatient follow up, to return to the emergency department if symptoms worsen or persist or if there are any questions or concerns that arise at home. Special discussion: Based on the patient's history, exam, and Dx evaluation, there is no indication for emergent intervention or inpatient Tx. It is understood by the patient/guardian that if the Sx's persist or worsen they need to return immediately for re-evaluation. I have referred the patient to see his PCP for further evaluation of high blood pressure. Based on the history and exam findings, there is no indication for further emergent testing or inpatient evaluation. I discussed with the patient/guardian the need to see the primary care provider for further evaluation of the symptoms. I discussed with the patient/guardian the need to see the policy adviser for further evaluation of the symptoms. 12/01 16:38 Order name: Basic Metabolic Panel; Complete Time: 17:22 snw 12/01 16:38 Order name: CBC with Diff; Complete Time: 17:22 snw 12/01 16:38 Order name: LFT's; Complete Time: 17:22 snw 12/01 16:38 Order name: Magnesium; Complete Time: 17:22 snw 12/01 16:38 Order name: NT PRO-BNP; Complete Time: 17:22 snw 12/01 16:38 Order name: PT-INR; Complete Time: 17:22 snw 12/01 16:38 Order name: Chest Single View XRAY; Complete Time: 17:03 snw 12/01 16:38 Order name: Troponin (emerg Dept Use Only); Complete Time: 17:22 snw 12/01 16:38 Order name: CT Chest For PE Angio; Complete Time: 18:54 snw 12/01 17:45 Order name: Add On-Lab snw 12/01 17:49 Order name: Thyroid Stimulating Hormone; Complete Time: 18:30 EDMS 12/01 18:13 Order name: T4 Free; Complete Time: 18:30 EDMS 12/01 16:38 Order name: EKG; Complete Time: 16:39 snw 12/01 16:38 Order name: Cardiac monitoring; Complete Time: 17:00 snw 12/01 16:38 Order name: EKG - Nurse/Tech; Complete Time: 17:27 snw 12/01 16:38 Order name: IV Saline Lock; Complete Time: 17:00 snw 12/01 16:38 Order name: Labs collected and sent; Complete Time: 17:00 snw 12/01 16:38 Order name: O2 Per Protocol; Complete Time: 17:00 snw 12/01 16:38 Order name: O2 Sat Monitoring; Complete Time: 17:00 snw Administered Medications: 16:54 Drug: Ativan 2 mg Route: PO; hb 17:47 Follow up: Response: No adverse reaction hb 19:28 Drug: Decadron - Dexamethasone 10 mg Route: IVP; Site: right antecubital; jb4 19:42 Follow up: Response: No adverse reaction jb4 19:28 Drug: Zithromax 500 mg Route: PO; jb4 19:42 Follow up: Response: No adverse reaction jb4 Disposition: 12/02/19 19:26 Discharged to Home. Impression: Chronic obstructive pulmonary disease with (acute) exacerbation. - Condition is Stable. - Discharge Instructions: Chronic Obstructive Pulmonary Disease, How to Use an Inhaler. - Prescriptions for Albuterol Sulfate 90 mcg/actuation - inhale 1-2 puff by INHALATION route every 4-6 hours; 1 Inhaler. Pepcid 20 mg Oral Tablet - take 1 tablet by ORAL route once daily; 20 tablet. Zithromax 500 mg Oral Tablet - take 1 tablet by ORAL route once daily for 5 days; 5 tablet. - Medication Reconciliation Form, Thank You Letter, Antibiotic Education, Prescription Opioid Use form. - Follow up: Emergency Department; When: As needed; Reason: Worsening of condition. Follow up: Private Physician; When: 2 - 3 days; Reason: Recheck today's complaints, Continuance of care, Re-evaluation by your physician. Addendum: 12/04/2019 08:16 Co-signature as Attending Physician, Bobby Banks MD I agree with the assessment and c matos plan of care. Signatures: Dispatcher [employer] EDBobby Middleton MD MD cha Waters, Shelly, PHYSICIAN INTENSIVIST-C PHYSICIAN INTENSIVIST-Csnw Samara Jamil, RN RN Ludmila Clark, FILIBERTO RN Govind Land RN RN jb4 Corrections: (The following items were deleted from the chart) 12/01 19:43 19:26 12/02/2019 19:26 Discharged to Home. Impression: Chronic obstructive pulmonary jb4 disease with (acute) exacerbation. Condition is Stable. Forms are Medication Reconciliation Form, Thank You Letter, Antibiotic Education, Prescription Opioid Use. Follow up: Emergency Department; When: As needed; Reason: Worsening of condition. Follow up: Private Physician; When: 2 - 3 days; Reason: Recheck today's complaints, Continuance of care, Re-evaluation by your physician. snw
--- NOTE | 2019-12-02 19:26 | ER ---
Nurse's Notes [facility] Name: Daryn Ramos Jr Age: 49 yrs Sex: Male : 1970 Arrival Date: 12/02/2019 Time: 16:29 Bed 5 Private MD: Diagnosis: Chronic obstructive pulmonary disease with (acute) exacerbation Presentation: 12/01 16:40 Chief complaint: Patient states: Breathing difficulty that began this morning, denies ph cough, fever, sore throat, hx of COPD and asthma. Coronavirus screen: shortness of breath. Ebola Screen: No symptoms or risks identified at this time. Initial Sepsis Screen: Does the patient meet any 2 criteria? RR > 20 per min. Does the patient have a suspected source of infection? No. Patient's initial sepsis screen is negative. Risk Assessment: Do you want to hurt yourself or someone else? Patient reports no desire to harm self or others. Onset of symptoms was December 02, 2019. 16:40 Method Of Arrival: Ambulatory ph 16:40 Acuity: SALEEM 3 ph Historical: - Allergies: 16:42 EGG/POULTRY; ph 16:42 PENICILLINS; ph - PMHx: 16:42 Anxiety; Asthma; COPD; ph - PSHx: 16:42 None; ph - Immunization history:: Adult Immunizations unknown. - Social history:: Smoking status: Patient/guardian denies using tobacco, Stopped _ months ago 2. Screenin:00 Abuse screen: Denies threats or abuse. Denies injuries from another. Nutritional hb screening: No deficits noted. Tuberculosis screening: No symptoms or risk factors identified. Fall Risk None identified. Assessment: 17:00 General: Appears in no apparent distress. Behavior is cooperative, anxious. Pain: hb Denies pain. Neuro: Level of Consciousness is awake, alert, obeys commands, Oriented to person, place, time, situation. Cardiovascular: Capillary refill < 3 seconds Patient's skin is warm and dry. Rhythm is regular. Respiratory: Respiratory effort is unlabored, labored. GI: No signs and/or symptoms were reported involving the gastrointestinal system. : No signs and/or symptoms were reported regarding the genitourinary system. EENT: No signs and/or symptoms were reported regarding the EENT system. Derm: Skin is pink, warm \T\ dry. Musculoskeletal: No signs and/or symptoms reported regarding the musculoskeletal system. 18:30 Reassessment: Patient appears in no apparent distress at this time. Patient and/or hb family updated on plan of care and expected duration. Pain level reassessed. Patient is alert, oriented x 3, equal unlabored respirations, skin warm/dry/pink. 19:00 Reassessment: Patient appears in no apparent distress at this time. Patient and/or jb4 family updated on plan of care and expected duration. Pain level reassessed. Patient is alert, oriented x 3, equal unlabored respirations, skin warm/dry/pink. 19:42 Reassessment: Patient and/or family updated on plan of care and expected duration. Pain jb4 level reassessed. Patient is alert, oriented x 3, equal unlabored respirations, skin warm/dry/pink. PT verbalized understanding of d/c and follow up instructions. Denies questions or concerns. Ambulated out of ED with steady gait. Vital Signs: 16:40 BP 124 / 95; Pulse 86; Resp 26; Temp 98.8; Pulse Ox 100% on R/A; Weight 79.38 kg; ph Height 5 ft. 11 in. (180.34 cm); Pain 0/10; 17:35 BP 100 / 82; Pulse 80; Resp 16; Pulse Ox 100% ; sv 18:30 BP 119 / 81; Pulse 78; Resp 12; Pulse Ox 100% on R/A; Pain 0/10; hb 19:30 BP 117 / 97; Pulse 74; Resp 16; Pulse Ox 98% on R/A; jb4 16:40 Body Mass Index 24.41 (79.38 kg, 180.34 cm) ph ED Course: 16:29 Patient arrived in ED. mr 16:32 Milka Montes De Oca, LOBITO is PHCP. snw 16:32 Bobby Banks MD is Attending Physician. snw 16:42 Triage completed. ph 16:42 Arm band placed on Patient placed in an exam room, on a stretcher, on radiographer cardiac catheterization, ph on pulse oximetry. 16:46 Ludmila Clark, RN is Primary Nurse. hb 16:49 Chest Single View XRAY In Process Unspecified. EDMS 17:00 Patient has correct armband on for positive identification. Bed in low position. Call hb light in reach. Side rails up X 1. 17:00 Inserted saline lock: 20 gauge in right antecubital area, using aseptic technique. hb Blood collected. 17:27 EKG done, by ED staff, reviewed by Mlika ROBIN. jb1 18:12 CT Chest For PE Angio In Process Unspecified. EDMS 18:30 Add On-Lab Sent. sv 19:30 No provider procedures requiring assistance completed. IV discontinued, intact, jb4 bleeding controlled, No redness/swelling at site. Pressure dressing applied. Administered Medications: 16:54 Drug: Ativan 2 mg Route: PO; hb 17:47 Follow up: Response: No adverse reaction hb 19:28 Drug: Decadron - Dexamethasone 10 mg Route: IVP; Site: right antecubital; jb4 19:42 Follow up: Response: No adverse reaction jb4 19:28 Drug: Zithromax 500 mg Route: PO; jb4 19:42 Follow up: Response: No adverse reaction jb4 Outcome: 19:26 Discharge ordered by . snw 19:30 Discharged to home ambulatory. jb4 19:30 Condition: stable 19:30 Discharge instructions given to patient, Instructed on discharge instructions, follow up and referral plans. medication usage, Demonstrated understanding of instructions, follow-up care, medications, Prescriptions given X 3. 19:43 Patient left the ED. jb4 Signatures: Dispatcher [employer] EDOK Jose Hurd jb1 Celi Ibarra, RN Milka Whatley, LOBITO FORBESP-Csn Richelle Silveira Samara Jamil RN RN Ludmila Clark RN RN hb Bryson, James, RN RN jb4
[2019-12-02] MEDS ORDERED: dexAMETHasone 10 MG/ML VIAL ONE (19:32)
[2019-12-02] MEDS ORDERED: AZITHROMYCIN 250 MG TAB ONE (19:32)
[2019-12-02 19:48] VITALS: TEMP 98.8
[2019-12-02 19:52] VITALS: BP 117/97; O2SAT 98
--- NOTE | 2019-12-03 15:35 | EKG ---
Test Date: 2019-12-02 Test Time: 17:25:24 Distribution Engineer: SANDRA MEASUREMENT RESULTS: Intervals: Rate: 71 WA: 176 QRSD: 88 QT: 386 QTc: 419 [place]: P: 42 WA: 176 QRS: 48 T: 57 INTERPRETIVE STATEMENTS: Normal sinus rhythm Normal ECG Compared to ECG 05/15/2015 05:38:50 No significant changes Electronically Signed On 12-03-19 15:34:33 CDT by Enrique Rothman
== END 2019-12-02 19:43 | disposition home or self-care (01) ==
LOC: ER 16:28
DX: J44.1 Chronic obstructive pulmonary disease with (acute) exacerbation (principal); Z88.0 Allergy status to penicillin; Z91.012 Allergy to eggs; Z91.018 Allergy to other foods
CPT/HCPCS: 36415; 71045; 71275; 80048; 80076; 82565; 83735; 83880; 84439; 84443; 84484; 85025; 85610; 93005; 96374; 99284; J1100; Q9967

== ENCOUNTER 2020-01-05 10:13 | Emergency (ER) | payer SELFPAY ==
--- OUTSIDE RECORDS SUMMARY | 2020-01-05 10:15 | XMS REPORT | Continuity of Care Document ---
:1970 Author Organization [facility] t Address [address] [place] [address] [address] [place] [address] Care Team Providers Name Role Phone ANABEL Attending Clinician Unavailable CARLOS Attending Clinician Unavailable MICHAEL Attending Clinician Unavailable Problems This patient has no known problems. Allergies, Adverse Reactions, Alerts This patient has no known allergies or adverse reactions. Medications This patient has no known medications. Procedures This patient has no known procedures. Encounters Start End Encounter Admission Attending Care Care Encounter Source Date/Time Date/Time Type Type Clinicians Facility Department ID 2019-12-25 2019-12-25 Emergency [facility], [facility] [id number] [place] 00:00:00 00:00:00 RAYMUNDO [address] 2019-10-01 2019-10-01 [place] [id number] [place] 00:00:00 00:00:00 SETH [address] 2019-07-31 2019-07-31 Emergency [place] [id number] [place] 00:00:00 00:00:[address] BETTY [address] Results This patient has no known results.
--- NOTE | 2020-01-05 11:47 | ER ---
Nurse's Notes [facility] Name: Daryn Ramos Jr Age: 49 yrs Sex: Male : 1970 Arrival Date: 01/05/2020 Time: 10:16 Bed Waiting Private MD: Diagnosis: Presentation: 01/04 10:17 Chief complaint: Patient states: sore throat, congestion only where he points at x 3 sv days. Wants his Zpack refilled. Reports he quit smoking for about 3 months and recently started back up. Coronavirus screen: Client denies travel out of the [place] in the last 14 days. congestion, sore throat, Client presents with at least one sign or symptom that may indicate coronavirus-19. Standard/surgical mask placed on the client. Provider contacted for isolation considerations. Ebola Screen: No symptoms or risks identified at this time. Risk Assessment: Do you want to hurt yourself or someone else? Patient reports no desire to harm self or others. Onset of symptoms was January 02, 2020. 10:17 Method Of Arrival: Ambulatory sv 10:17 Acuity: SALEEM 4 sv 10:19 Initial Sepsis Screen: Does the patient meet any 2 criteria? No. Patient's initial sv sepsis screen is negative. Does the patient have a suspected source of infection? No. Patient's initial sepsis screen is negative. Triage Assessment: 10:17 General: Appears in no apparent distress. comfortable, Behavior is cooperative, sv appropriate for age. Pain: Denies pain. Neuro: Level of Consciousness is awake, alert, obeys commands, Oriented to person, place, time, situation, Moves all extremities. Full function. Respiratory: Respiratory effort is even, unlabored. Historical: - Allergies: 10:18 EGG/POULTRY; sv 10:18 PENICILLINS; sv - PMHx: 10:18 Anxiety; Asthma; COPD; sv - PSHx: 10:18 None; sv - Immunization history:: Adult Immunizations up to date. - Social history:: Smoking status: Patient reports the use of cigarette tobacco products, smokes .75 packs per day. Vital Signs: 10:19 BP 107 / 76; Pulse 86; Resp 18; Temp 98.7; Pulse Ox 98% ; Weight 74.84 kg; Height 5 ft. sv 11 in. (180.34 cm); 10:19 Body Mass Index 23.01 (74.84 kg, 180.34 cm) sv ED Course: 10:16 Patient arrived in ED. mr 10:18 Triage completed. sv 10:19 Arm band placed on. sv 10:24 Joan Smith FNP-C is PHCP. kb 10:24 Coy Medina MD is Attending Physician. kb 11:39 Patient's name was called from ER lobby. No response. sv 11:46 Meghan Borges, RN is Primary Nurse. iw Administered Medications: No medications were administered Outcome: 11:46 Eloped from waiting room, before seeing physician iw 11:47 Patient left the ED. iw Signatures: Joan Smith FNP-C FNP-Ckb Verde, Stephanie, RN RN Richelle Silveira mr Meghan Borges, RN RN iw Corrections: (The following items were deleted from the chart) 10:26 10:17 Chief complaint: Patient states: sore throat, congestion only where he points at sv x 3 days. Wants his Zpack refilled sv
== END 2020-01-05 11:47 | disposition left against medical advice (07) ==
LOC: ER 10:13
DX: Z53.21 Procedure and treatment not carried out due to patient leaving prior to being seen by health care provider (principal)
CPT/HCPCS: 99281

== ENCOUNTER 2020-03-26 20:39 | Emergency (ER) | payer OTHER, SELFPAY ==
--- OUTSIDE RECORDS SUMMARY | 2020-03-26 20:51 | XMS REPORT | Clinical Summary ---
:1970 Author Organization [facility] Address [address] [place] [address] Care Team Providers Name Role Phone Asked, [...] Encounters Date Type Specialty Care Team Description 12/25/2019 Emergency Emergency Medicine Yahir Louis tte nicotine dependence without complication (Primary Dx); MD Ivan Anxiety 12/25/2019 Travel 10/01/2019 Emergency Emergency Medicine Leah Wilson DO [place] exacerbation (HCC) (Primary Dx) 10/01/2019 Travel 07/31/2019 Emergency Emergency Medicine Major Winchester MD Acute lower GI bleeding Jose Pierson (Primary Dx) Daphnie Ayala MD 07/31/2019 Travel after 03/26/2019 Surgical History Surgery Date Site/Laterality Comments COLONOSCOPY 04/19/2015 - 04/18/2016 Medical History Medical History Date Comments Asthma COPD (chronic obstructive pulmonary disease) (HCC) Anxiety Social History Tobacco Use Types Packs/Day Years Used Date Current Every Day Smoker 0.5 30 Smokeless Tobacco: Current User Tobacco Cessation: Ready to Quit: Yes; C ounseling Given: Yes Alcohol Use Drinks/Week oz/Week Comments No former Sex Assigned at Date Recorded Not on file Last Filed Vital Signs Vital Sign Reading Time Taken Comments Blood Pressure 125/86 12/25/2019 2:25 PM CDT Pulse 79 12/25/2019 2:25 PM CDT Temperature 36.6 C (97.8 F) 12/25/2019 2:25 PM CDT Respiratory Rate 18 12/25/2019 2:25 PM CDT Oxygen Saturation 99% 12/25/2019 2:25 PM CDT Inhaled Oxygen Concentration - - Weight 72.6 kg (160 lb) 12/25/2019 2:25 PM CDT Height 180.3 cm (5' 11") 12/25/2019 2:25 PM CDT Body Mass Index 22.32 12/25/2019 2:25 PM CDT Plan of Treatment Health Maintenance [...] are i n the results section. after 03/26/2019 Results XR Chest 2 Vw (10/01/2019 5:54 [...] severely hyperinflated consistent with e mphysematous changes. [facility]-[id number] Procedure Note Hm Interface, Radiology Results Incoming [...] severely hyperinflated con sistent with emphysematous changes. [facility]-[id number] Performing Organization Address City/State/ZIP Code Phon e Number [facility] [address] [place] [address] CT Abdomen Pelvis W Contrast (07/31/2019 7:37 [...] image s created at the CT scanner ct scan special procedures technologist were also sub mitted for interpretation. [...] clinical correlation recommended. 2.Other findings as above. [facility]-[id number] Procedure Note [facility], Radiology Results Incoming - 07/31/2019 7:53 [...] ormatted images created at the CT scanner ct scan special procedures technologist were also submitted for interpretation. COMPARISON: [...] clinical correlation recommended. 2.Other findings as above. [facility]-[id number] Performing Organization Address City/State/ZIP Code Phon e Number [facility] [address] [place] [address] Estimated GFR (07/31/2019 6:40 PM CDT) Estimated GFR >=90 mL/min/1.73 [facility] Comment: m2 [facility] Catergory Units Interpretation [facility] G1 [...] published in 2014. Specimen Performing Organization Address City/State/ZIP Code Phon e Number DEPARTMENT OF PATHOLOGY AND [address] [place] [id number] GENOMIC MEDICINE, [facility] [address] CBC with platelet and differential (07/31/2019 6:40 PM CDT) Pathologist Sig nature WBC 11.31 (H) 4.50 - 11.00 k/uL [facility] EMERGENCY [facility] RBC 4.95 4.40 - 6.00 m/uL [facility] EMERGENCY CARE [place] HGB 15.6 14.0 - 18.0 g/dL [facility] EMERGENCY CARE [place] HCT 47.1 41.0 - 51.0 % [facility] MCV 95.2 82.0 - 100.0 fL [facility] EMERGENCY [facility] MCH 31.5 27.0 - 34.0 pg [facility] EMERGENCY [facility] MCHC 33.1 31.0 - 37.0 g/dL [facility] RDW - SD 44.5 37.0 - 55.0 fL [facility] MPV 10.6 8.8 - 13.2 fL [facility] Platelet count 227 150 - 400 k/uL [facility] Neutrophils 63.3 39.0 - 69.0 % [facility] Lymphocytes 28.1 25.0 - 45.0 % [facility] Monocytes 8.0 0.0 - 10.0 % [facility] Eosinophils 0.4 0.0 - 5.0 % [facility] Basophils 0.2 0.0 - 1.0 % [facility] Specimen Blood Performing Organization Address City/[facility]/ZIP [facility] Phon e Number DEPARTMENT OF PATHOLOGY AND [address] [place] [address] [place] [address] Amylase level (07/31/2019 6:40 PM CDT) Pathologist Sig nature Amylase 42 14 - 97 U/L [facility] Specimen Blood Performing Organization Address City/State/ZIP Code Phon e Number DEPARTMENT OF PATHOLOGY AND [address] [place] [address] [place] [address] Comprehensive metabolic panel (07/31/2019 6:40 PM CDT) Sodium 137 128 - 145 [facility] mEq/L [facility] Potassium 3.8 3.6 - 5.1 [facility] mEq/L [facility] CO2 28 18 - 33 mEq/L [facility] Chloride 103 98 - 108 mEq/L [facility] Glucose 101 73 - 118 mg/dL [facility] Calcium 9.6 8.0 - 10.3 [facility] mg/dL [facility] BUN 11 7 - 22 mg/dL [facility] Creatinine 0.9 0.7 - 1.2 [facility] mg/dL [facility] Alkaline phosphatase 61 53 - 128 U/L [facility] ALT 25 10 - 47 U/L [facility] AST 21 11 - 38 U/L [facility] Total bilirubin 0.7 0.2 - 1.6 [facility] mg/dL [facility] Albumin 4.5 3.3 - 5.5 g/dL [facility] Protein 7.1 6.4 - 8.1 g/dL [facility] Anion gap 6@ANIO (L) 7 - 15 mEq/L [facility] A/G ratio 1.7 0.7 - 3.8 [facility] Specimen Blood Performing Organization Address City/[facility]/ZIP Code Phon e Number DEPARTMENT OF PATHOLOGY AND [address] [place] [address] GENOMIC MEDICINE, [facility] [address] after 03/26/2019 Insurance Payer Benefit Plan / Subscriber ID Effective Phone Address T ype Group Dates COMMERCIAL MISC MISC COMMERCIAL [id number] 2019-Pres Commercial ent Advance Directives For more information, please contact: [phone] Type Date Recorded Patient Security Police Explanati on Advance Directives, Living Will 09/21/2017 5:25 PM and Medical Power of Drone Pilot
--- OUTSIDE RECORDS SUMMARY | 2020-03-26 20:51 | XMS REPORT | Summary of Care ---
:1970 Author Organization [facility] - Health Address [address] [place] [address] Care Team Providers Name Role Phone Mindy Zayas UPHOLSTERY BUNDLER Primary Care Provider Encounter Details Date Type Department Care Team Description 01/05/2020 Letter (Out) [facility] [place] Message s Doctor Unassigned, No 301 [facility] [place] [address] [address] [facility] [phone] [place] [address] Allergies Active Allergy Reactions Severity Noted Date Comments Cat Dander Shortness of Breath High 09/21/2017 Cat's Claw (Uncaria Tomentosa) Unknown - See comments 09/21/2017 Dog Dander Shortness of Breath High 09/21/2017 Eggshell Membrane Unknown - See comments 09/21/2017 Unknown Penicillins Rash Low 09/21/2017 documented as of this encounter (statuses as of 01/05/2020) Medications Medication Sig Dispensed Refills Start Date End Date Status albuterol (PROVENTIL) Inhale 3 mL 20 mL 0 03/27/2015 Active 2.5 mg /3 mL (0.083 %) every 4 (four) nebulizer solution hours. May also nebulize one extra every 6 hours. albuterol (VENTOLIN) 90 Inhale 2 Puffs 8.5 g 1 03/27/2015 Active mcg/actuation inhaler every 6 (six) hours as needed for Wheezing or Shortness of Breath. predniSONE (DELTASONE) Take 1 Tab by 14 Tab 0 03/27/2015 Active 20 mg tablet mouth 2 (two) times daily. albuterol (PROVENTIL) Inhale 3 mL 20 mL 0 03/27/2015 Active 2.5 mg /3 mL (0.083 %) every 4 (four) nebulizer solution hours. May also nebulize one extra every 6 hours. famotidine 20 mg tablet Take 20 mg by 0 12/04/2019 Active mouth daily. methylPREDNISolone 4 mg Take by mouth 21 Each 0 01/05/2020 Active tabletsIndications: SEE-INSTRUCTIONS 0 Bronchitis for 6 days. follow package directions brompheniramine-pseudoep Take 5 mL by 200 mL 0 01/05/2020 0 Active hedrine-DM (BROMFED DM) mouth 4 (four) 0 2-30-10 mg/5 mL times daily as syrupIndications: needed for Bronchitis Congestion/Aller gies or Cough for up to 10 days. azithromycin (ZITHROMAX Take 1 tablet by 6 tablet 0 0 Active Z-WINSTON) 250 mg mouth daily for 0 tabletIndications: 5 days. Take 500 Bronchitis mg day 1, then 250 mg days 2 to 5. documented as of this encounter (statuses as of 01/05/2020) Active Problems No known active problemsdocumented as of this encounter (statuses as of 01/05/2020) Social History Tobacco Use Types Packs/Day Years Used Date Current Every Day Smoker Smokeless Tobacco: Never Used Sex Assigned at Date Recorded Not on file COVID-19 Exposure Response Date Recorded In the last month, have you been in contact with No / Unsure 01/05/2020 2:49 PM CDT someone who was confirmed or suspected to have Coronavirus / COVID-19? documented as of this encounter Last Filed Vital Signs Not on filedocumented in this encounter Plan of Treatment Health Maintenance Due Date Last Done Comments Depression Screening 1980 DTaP,Tdap,and Td Vaccines (1 - 10/25/1987 Tdap) COLON CANCER SCREENING ANNUAL 2018 FIT/FOBT COLON CANCER SCREENING FIT DNA 2018 EVERY 3 YEARS COLON CANCER SCREENING 2018 SIGMOIDOSCOPY EVERY 5 YEARS COLONOSCOPY 2018 Colorectal Cancer Screening 2018 Zoster Recombinant Vaccine 2018 (SHINGRIX) (1 of 2) INFLUENZA VACCINE (#1) 2019 PNEUMOCOCCAL 0-64 YEARS COMBINED Aged Out No longer eligible based on SERIES patient's age to complete this topic documented as of this encounter Results Not on filedocumented in this encounter Additional Health Concerns Infection Onset Date Last Indicated Resolved Time COVID-19 Rule Out 01/05/2020 01/05/2020 documented as of this encounter Insurance Payer Benefit Plan / Group Subscriber ID Effective Dates Phone Address Type CIGNA CIGNA GENERIC [id number] 2020-Present HMO/PPO/POS documented as of this encounter
--- OUTSIDE RECORDS SUMMARY | 2020-03-26 20:51 | XMS REPORT | Continuity of Care Document ---
:1970 Author Organization [facility] t Address [address] [place] [address] Care Team Providers Name Role Phone Asked, Pcp Primary Care Physician Unavailable Provider, Urgent Care Attending Clinician Unavailable Gaye PULIDO Attending Clinician Ivan Louis MD Attending Clinician Carlos PULIDO Attending Clinician Melany Winchester MD Attending Clinician Kenna CLARKE, Daphnie Ayala Attending Clinician [phone] Payers Payer Name Policy Type Policy Effective Date Expiration Date Sour ce Number COMMERCIAL [id number] 2019 [place] MISCMISC 00:00:00 Sikh [id number] 77-Pre sentCommercial Problems This patient has no known problems. Allergies, Adverse Reactions, Alerts Allergy Allergy Status Severity Reaction(s) Onset Inactive Treating Comm ents Source Name Type Date Date Clinician Cat Propensi Active Shortness Of [place] Dander ty to Breath 6-05 [facility] adverse 00:00: st reaction 00 s to drug Cat's Propensi Active [place] Claw ty to 6-05 [facility] (Uncaria adverse 00:00: st Tomentos reaction 00 a) s to drug Dog Propensi Active Shortness Of [place] Dander ty to Breath 6-05 [facility] [...] Date Quantity Comments Source Sex Assigned At [facility] ethodist Cigarettes smoked 2019-12-25 2019-12-25 [place] S[facility] current (pack per 00:00:00 00:00:00 day) - Reported Cigarette 2019-12-25 2019-12-25 [place] Method ist pack-years 00:00:00 00:00:00 Tobacco use and 2019-12-25 2019-12-25 Current user [place] [facility] exposure 00:00:00 00:00:00 Alcohol intake 2019-12-25 2019-12-25 Current [facility] thodist 00:00:00 00:00:00 non-drinker of alcohol (finding) Alcohol Comment 2017-09-21 2017-09-21 former [facility] ethodist 00:00:00 00:00:00 Smoking Status Start Date Stop Date Source Current every day smoker 2019-12-25 00:00:00 Sonali ston Sikh Medications Ordered Filled Start Stop Current Ordering Indication Dosage Frequency Signature Comments Components Source Medication Medication Date Date Medication? Clinician (SIG) Name Name predniSONE 40mg QD Take 4 [place] (DELTASONE) 09-3019 tablets Meth jayshree 10 mg 00:00: 23:59 ([address] tablet 00 :00 total) by mouth daily for 5 days. albuterol Yes 1{ampul Q6H Take 1 Sonali ston (ACCUNEB) 09-21 e} ampule by Metho di 1.25 mg/3 17:38: nebulizati st mL 27 on every 6 nebulizer (six) solution hours as needed for wheezing. Vital Signs Vital Name Observation Time Observation Value Comments Source Systolic blood 2019-12-25 14:25:00 125 mm[Hg] [place] pressure Diastolic blood 2019-12-25 14:25:00 86 mm[Hg] [place]ikh pressure Heart rate 2019-12-25 14:25:00 79 /min [place] [facility]ikh Body temperature 2019-12-25 14:25:00 36.56 Ari[place]na [place] Respiratory rate 2019-12-25 14:25:00 18 /min [place]u Lucas Body height 2019-12-25 14:25:00 180.3 cm Ede Lucas Body weight 2019-12-25 14:25:00 72.576 kg Ede Lucas BMI 2019-12-25 14:25:00 22.32 kg/m2 Ede Lucas Oxygen saturation in 2019-12-25 14:25:00 99 /min Ede Lucas Arterial blood by Pulse oximetry Procedures Procedure Date / Time Performed Performing Clinician Sourc e XR CHEST 2 VW 2019-10-01 17:54:33 Seth Wilson Ede Meth odist CT ABDOMEN PELVIS W 2019-07-31 19:37:49 Cameron Winchester CONTRAST HC COMPLETE BLD COUNT 2019-07-31 18:40:00 Cameron Winchester W/AUTO DIFF COMPREHENSIVE METABOLIC 2019-07-31 18:40:00 Cameron Winchester PANEL AMYLASE LEVEL 2019-07-31 18:40:00 Cameron Winchester Vt thodist ESTIMATED GFR 2019-07-31 18:40:00 Cameron Winchester Vt thodist Plan of Care Planned Activity Planned Date Details Comments Source Future Scheduled 2019-11-18 INFLUENZA VACCINE Hanna Lucas Test 00:00:00 [code = INFLUENZA VACCINE] Future Scheduled 2018 COLONOSCOPY SCREENING Sony Lucas Test 00:00:00 [code = COLONOSCOPY SCREENING] Future Scheduled 2018 SHINGLES VACCINES Hanna regan Sikh Test 00:00:00 (#1) [code = SHINGLES VACCINES (#1)] Encounters Start End Encounter Admission Attending Care Care Encounter Source Date/Time Date/Time Type Type Clinicians Facility Department ID 2020-03-26 2020-03-26 Urgent Provider [facility] [id number] 16:08:35 17:21:19 Care [facility] [id number] Care Angelito [id number] Shahid [phone] nal 044 Office [address] 2020-02-01 2020-02-01 Office Gaye [facility] [id number] 08:30:53 09:30:53 Visit Juanita Eaton [id number] [place] [id number] Professio [id number] nal 085 Building 2019-12-25 2019-12-25 Emergency ANABEL, [facility] [id number] [place] 00:00:00 00:00:00 RAYMUNDO [address] 2019-10-01 2019-10-01 Emergency CARLOS, [facility] [id number] [place] 00:00:00 00:00:[address] SETH [address] 2019-07-31 2019-07-31 Emergency KENNA, [facility] 064 [id number] [place] 00:00:00 00:00:[address] BETTY [address] Results Test Description Test Time Test Comments Results Result Sourc e Comments XR Chest 2 Vw 2019-09-18 [facility] [place] [address] 17:55:23 - 10/01/2019 5:58 PM CDTEXAMINATION: XR CHEST 2 VWCLINICAL HISTORY: sobCOMPARISON: To previous study from 09/21/2017IMPRESSION:The cardiomediastinal silhouette is normal in appearance.The lungs are clear. There is no evidence of consolidation, congestion, or pneumothorax.A pleural effusion is not present.Visualized skeletal structures demonstrate no definite abnormality.The lungs are severely hyperinflated consistent with emphysematous changes.[facility]-[id number] Comprehensive metabolic panel 2019-07-31 22:31:29 Test Item Value Reference Range Interpretation Comme nts Sodium (test code = 2951-2) 137 128- 145 mEq/L Potassium (test code = 2823-3) 3.8 3.6- 5.1 mEq/L CO2 (test code = 8-9) 28 18- 33 mEq/L Chloride (test code = 2075-0) 103 98- 108 mEq/L Glucose (test code = 2345-7) 101 mg/dL 73-118 Calcium (test code = 35017-9) 9.6 mg/dL 8-10.3 BUN (test code = [...] g/dL 6.4-8.1 Anion gap (test code = 96530-9) 6@ANIO 7- 15 mEq/L L A/G ratio (test code = 1759-0) 1.7 0.7-3.8 Lab Interpretation (test code = 87552-0) Abnormal [place] MethodistAmylase [id number] 22:31:29 Test Item Value Reference Range Interpretation Comments Amylase (test code = 1798-8) 42 U/L 14-97 [place] MethodistCBC with platelet and [id number] 22:31:29 Test Item Value Reference Range Interpretation Comments WBC (test code = 66294-4) 11.31 4.50- 11.00 k/uL H RBC (test code = 30966-3) 4.95 m/uL 4.4-6 HGB (test code = 718-7) 15.6 g/dL 14-18 HCT (test code = 4544-3) 47.1 % 41-51 MCV (test code = 787-2) 95.2 fL 82-100 MCH (test code = 785-6) 31.5 pg 27-34 MCHC (test code = 786-4) 33.1 g/dL 31-37 RDW - SD (test code = 14429-1) 44.5 fL 37-55 MPV (test code = 04978-6) 10.6 fL 8.8-13.2 Platelet count (test code = 227 150- 400 k/uL 51411-1) Neutrophils (test code = 35969-2) 63.3 % 39-69 Lymphocytes (test code = 31725-1) 28.1 % 25-45 Monocytes (test code = 78863-2) 8.0 % 0-10 Eosinophils (test code = 93723-0) 0.4 % 0-5 Basophils (test code = 16748-3) 0.2 % 0-1 Lab Interpretation (test code = Abnormal 63638-4) [place] MethodistEstimated [id number] 22:31:29 Test Item Value Reference Range Interpretation Comments Estimated GFR (test >=90 mL/min/1.73 m2 Abida monroy Units code = 5488) InterpretationG 1 >=90 Normal or highG2 60-89 Mildly zancpvaqrE9t 45-59 Mildly to mode rately nmxrksxipH1l 30-44 Moderately to severely decreasedG4 15-29 Severely decre asedG5 <15 Kidn ey failureThe eGFR was calculated usin g the Chronic Kidney Disease Epidemiology Co llaboration (CKD-EPI) equat ion. Interpretation is based on recommendations of the National Kidney Foundation-Kidn ey Disease Outcomes Qualit y Initiative (NKF-KDOQI) pub lished in 2014. [place] MethodistCT Abdomen Pelvis W [id number] 19:50:40Hm Interface, Radiology Results - 07/31/2019 7:53 PM CDTEXAMINATION: CT ABDOMEN PELVIS W CONTRASTCLINICAL HISTORY: 48 yearsMale Abdominal pain rectal bleedingTECHNIQUE: Multidetector computed axial tomography of the abdomen and pelvis was preformed after the uncomplicated intravenous administration of IV contrast utilizing automated exposure control and/or iterative reconstruction techniques to radiation dose. Coronal and sagittal reformatted images created at the CT scanner mri technologist were also submitted for interpretation.COMPARISON: None [...] clinical correlation recommended. 2.Other findings as above. [facility]-[id number] Ede Lucas
--- OUTSIDE RECORDS SUMMARY | 2020-03-26 20:52 | XMS REPORT | Summary of Care ---
:1970 Author Organization [facility] - Health Address [address] [place] [address] Care Team Providers Name Role Phone Mindy Zayas CARBOY FILLER Primary Care Provider Encounter Details Date Type Department Care Team Description 01/15/2020 Orders Only [facility] Doctor Unassigned, No [address] [facility] [place] [address] [address] [place] [address] Allergies Active Allergy Reactions Severity Noted Date Comments Cat Dander Shortness of Breath High 09/21/2017 Cat's Claw (Uncaria Tomentosa) Unknown - See comments 09/21/2017 Dog Dander Shortness of Breath High 09/21/2017 Eggshell Membrane Unknown - See comments 09/21/2017 Unknown Penicillins Rash Low 09/21/2017 documented as of this encounter (statuses as of 01/15/2020) Medications Medication Sig Dispensed Refills Start Date End Date Status albuterol Inhale 3 mL every 20 mL 0 03/27/2015 A ctive (PROVENTIL) 2.5 mg 4 (four) hours. /3 mL (0.083 %) May also nebulize nebulizer solution one extra every 6 hours. albuterol (VENTOLIN) Inhale 2 Puffs 8.5 g 1 03/27/2015 Active 90 mcg/actuation every 6 (six) inhaler hours as needed for Wheezing or Shortness of Breath. predniSONE Take 1 Tab by 14 Tab 0 03/27/2015 Acti ve (DELTASONE) 20 mg mouth 2 (two) tablet times daily. albuterol Inhale 3 mL every 20 mL 0 03/27/2015 A ctive (PROVENTIL) 2.5 mg 4 (four) hours. /3 mL (0.083 %) May also nebulize nebulizer solution one extra every 6 hours. famotidine 20 mg Take 20 mg by 0 12/04/2019 Active tablet mouth daily. brompheniramine-pseu Take 5 mL by mouth 200 mL 0 01/05/2020 01/15/2020 Active doephedrine-DM 4 (four) times (BROMFED DM) 2-30-10 daily as needed mg/5 mL for syrupIndications: Congestion/Allergi Bronchitis es or Cough for up to 10 days. documented as of this encounter (statuses as of 01/15/2020) Active Problems No known active problemsdocumented as of this encounter (statuses as of 01/15/2020) Social History Tobacco Use Types Packs/Day Years [...] filedocumented in this encounter Plan of Treatment Date Type Specialty Care Team Description 01/15/2020 Appointment Radiology Mindy Zayas, [place] [address] [place] [address] [phone] Health Maintenance Due Date Last Done Comments [...] this topic documented as of this encounter Procedures Procedure Name Priority Date/Time Associated Diagnosis Comme nts ASSIGNMENT OF BENEFITS Routine 01/15/2020 4:24 PM CDT documented in this encounter Results Not on filedocumented in this encounter Insurance Payer Benefit Plan / Group Subscriber ID Effective Dates Phone Address Type CIGNA CIGNA GENERIC [id number] 2020-Present HMO/PPO/POS documented as of this encounter
--- OUTSIDE RECORDS SUMMARY | 2020-03-26 20:52 | XMS REPORT | Summary of Care ---
:1970 Author Organization [facility] - Health Address [address] [place] [id number] Care Team Providers Name Role Phone BethanieyolandaMindy [facility] Primary Care Provider Reason for Visit Reason Comments Cough non-productive x 01/02/2020 Shortness of Breath Encounter Details Date Type Department Care Team Description 01/15/2020 Urgent Care [facility] Ines Cullen FNP [address] [facility] [address] [place] [address] Cough, persistent Medicine - [place] Provider, [facility] (Primary Dx) [address] [place] [address] Allergies Active Allergy Reactions Severity Noted Date [...] of this encounter Last Filed Vital Signs Vital Sign Reading Time Taken Comments Blood Pressure 129/81 01/15/2020 3:27 PM CDT Pulse 79 01/15/2020 3:27 PM CDT Temperature 36.8 C (98.2 F) 01/15/2020 3:27 PM CDT Respiratory Rate 16 01/15/2020 3:27 PM CDT Oxygen Saturation 96% 01/15/2020 3:27 PM CDT Inhaled Oxygen Concentration - - Weight 74.8 kg (165 lb) 01/15/2020 3:27 PM CDT Height 180.3 cm (5' 11") 01/15/2020 3:27 PM CDT Body Mass Index 23.01 01/15/2020 3:27 PM CDT documented in this encounter Progress Notes Mindy Zayas, [employer]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 is a 49 year old male. Patient. Was seen about 10 days ago and was treated for bronchitis with antibiotics and inhalers. Covid test was negative. Patient states he never took the medrol dose pack, not the cough Supressant because of what he read about them. He is also an active smoker. Cough Cough characteristics: Dry, productive and hacking Sputum characteristics: Nondescript Onset quality: Gradual Timing: Constant Progression: Improving Chronicity: New Smoker: yes Context: upper respiratory infection Relieved by: Nothing Worsened by: Nothing Ineffective treatments: None tried Associated symptoms: shortness of breath Associated symptoms: no chest pain, no chills, no fever, no headaches and no wheezing Shortness of breath: Severity: Mild Onset quality: Gradual Timing: Intermittent Progression: Improving Risk factors: recent infection Allergies Daryn is allergic to cat dander; dog dander; cat's claw (uncaria tomentosa); eggshell membrane; andpenicillins. Medications Outpatient Medications Prior to Visit Medication Sig Dispense Refill wbxpjeppcslubkw-axscfnytoasnlzq-CY (BROMFED DM) 2-30-10 mg/5 mL syrup Take 5 mL by mouth 4 (four) times daily as needed for Congestion/Allergies or Cough for up to 10 days. 200 mL 0 famotidine 20 mg tablet Take 20 mg by mouth daily. albuterol (PROVENTIL) 2.5 mg /3 mL (0.083 %) nebulizer solution Inhale 3 mL every 4 (four) hours. May also nebulize one extra every 6 hours. 20 mL 0 albuterol (PROVENTIL) 2.5 mg /3 mL (0.083 %) nebulizer solution Inhale 3 mL every 4 (four) hours. May also nebulize one extra every 6 hours. 20 mL 0 albuterol (VENTOLIN) 90 mcg/actuation inhaler Inhale 2 Puffs every 6 (six) hours as needed for Wheezing or Shortness of Breath. 8.5 g 1 predniSONE (DELTASONE) 20 mg tablet Take 1 Tab by mouth 2 (two) times daily. 14 Tab 0 No facility-administered medications prior to visit. Histories No past medical history on file. No past surgical history on file. Social History Socioeconomic History Marital status: Single Spouse name: Not on file Number of children: Not on file Years of education: Not on file Highest education level: Not on file Occupational History Not on file Social Needs Financial resource strain: Not on file Food insecurity Worry: Not on file Inability: Not on file Transportation needs Medical: Not on file Non-medical: Not on file Tobacco Use Smoking status: Current Every Day Smoker Smokeless tobacco: Never Used Substance and Sexual Activity Alcohol use: Not on file Drug use: Not on file Sexual activity: Not on file Lifestyle Physical activity Days per week: Not on file Minutes per session: Not on file Stress: Not on file Relationships Social connections Talks on phone: Not on file Gets together: Not on file Attends judaism service: Not on file Active member of club or organization: Not on file Attends meetings of clubs or organizations: Not on file Relationship status: Not on file Intimate partner violence Fear of current or ex partner: Not on file Emotionally abused: Not on file Physically abused: Not on file Forced sexual activity: Not on file Other Topics Concern Not on file Social History Narrative Not on file No family history on file. Review of Systems Constitutional: Negative. Negative for chills, fatigue and fever. Respiratory: Positive for cough and shortness of breath. Negative for chest tightness and wheezing. Cardiovascular: Negative. Negative for chest pain and palpitations. Gastrointestinal: Negative. Neurological: Negative. Negative for syncope, weakness, light-headedness and headaches. Psychiatric/Behavioral: Negative. Endocrine: Endocrine negative Vital Signs BP 129/81 | Pulse 79 | Temp 36.8 C (98.2 F) (Oral) | Resp 16 | Ht 5' 11" (1.803 m) | Wt 165lb (74.8 kg) | SpO2 96% | BMI 23.01 kg/m Physical Exam Vitals signs and nursing note reviewed. Constitutional: General: He is not in acute distress. Appearance: He is well-developed. Cardiovascular: Rate and Rhythm: Normal rate and regular rhythm. Heart sounds: Normal heart sounds. No murmur. No friction rub. No gallop. Pulmonary: Effort: Pulmonary effort is normal. No respiratory distress. Breath sounds: Normal breath sounds. No stridor. No decreased breath sounds, wheezing or rales. Chest: Chest wall: No tenderness. Abdominal: General: Bowel sounds are normal. Palpations: Abdomen is soft. Skin: General: Skin is warm and dry. Capillary Refill: Capillary refill takes less than 2 seconds. Neurological: Mental Status: He is alert and oriented to person, place, and time. Psychiatric: Mood and Affect: Mood normal. Assessment/Plan Cough, persistent (primary encounter diagnosis) Comment: he is encouraged to take medications given last visit that he failed to take (tessalon and medrol dose pack) Plan: XR CHEST 2 VW Further intervention to follow depending on study result. If worse with respiratory distress, go to the ER. Plan of care, desired health behaviors, goals, and medication discussed with patient. Education resources provided and reviewed with AVS. Patient/guardian/family verbalized understanding & agrees to plan of care. This visit did not involve counseling and coordination that comprised more than 50% of the visit time. If applicable, the [facility] database was accessed to review any controlled substance prescription claims data. The [employer] prescription claims data in [employer] was reviewed to assess patient compliance with the medication treatment plan. Shawanda Braun RN - 01/15/2020 3:20 PM CDT Daryn Ramos Jr. is a 49 year old male Chief Complaint Patient presents with Cough non-productive x 01/02/2020 Shortness of Breath Vitals: 01/15/20 1527 BP: 129/81 Pulse: 79 Resp: 16 Temp: 36.8 C (98.2 F) TempSrc: Oral SpO2: 96% Weight: 165 lb (74.8 kg) Height: 5' 11" (1.803 m) [id number] - [place], [place] - [address] AT [facility] & [employer] [facility] Patient AAOx4 and in no acute distress. All Vitals taken, allergies and all medications reviewed, fall risk assessed. Pain level 5. documented in this encounter Plan of Treatment Name Type Priority Associated Diagnoses Order S chedule XR CHEST 2 VW IMAGING Routine Cough, persistent Expected: 01/15/2020, Expires: 01/14/2021 Health Maintenance Due Date Last Done Comments [...] Results Not on filedocumented in this encounter Visit Diagnoses Diagnosis Cough, persistent - Primary Cough documented in this encounter documented as of this encounter
--- OUTSIDE RECORDS SUMMARY | 2020-03-26 20:52 | XMS REPORT | Summary of Care ---
:1970 Author Organization [facility] - Health Address [address] [place] [address] Care Team Providers Name Role Phone BethanieErin guerrerothia FREDERICK Primary Care Provider Reason for Visit Reason Comments UPPER RESPIRATORY INFECTION Pt states he has asthma an d COPD. He stopped smoking back in September. He slipped up the l ast few weeks and now has some lung issues going on. H e is hacking greenish yellow muces when he can get nythin g up. no other symptoms. Encounter Details Date Type Department Care Team Description 01/05/2020 Urgent Care [facility] Family Bernice Zayas FNP [id number] [place] [id number] Bronchitis (Primary Dx); Medicine - [place] Provider, [facility] Urgent Care Suspected 2019 Novel Coronavirus Infecti on; [address] [place] [address] [address]; [place] [address] Allergies Active Allergy Reactions Severity Noted Date Comments Cat Dander Shortness of Breath High 09/21/2017 Cat's Claw (Uncaria Tomentosa) Unknown - See comments 09/21/2017 Dog Dander Shortness of Breath High 09/21/2017 Eggshell Membrane Unknown - See comments 09/21/2017 Unknown Penicillins Rash Low 09/21/2017 documented as of this encounter (statuses as of 01/05/2020) Medications Medication Sig Dispensed Refills Start End Status Date Date albuterol (PROVENTIL) Inhale 3 mL 20 mL 0 Active 2.5 mg /3 mL (0.083 %) every 4 (four) 5 nebulizer solution hours. May also nebulize one extra every 6 hours. albuterol (VENTOLIN) Inhale 2 Puffs 8.5 g 1 Active 90 mcg/actuation every 6 (six) 5 inhaler hours as needed for Wheezing or Shortness of Breath. predniSONE (DELTASONE) Take 1 Tab by 14 Tab 0 Active 20 mg tablet mouth 2 (two) 5 times daily. albuterol (PROVENTIL) Inhale 3 mL 20 mL 0 Active 2.5 mg /3 mL (0.083 %) every 4 (four) 5 nebulizer solution hours. May also nebulize one extra every 6 hours. famotidine 20 mg Take 20 mg by 0 Active tablet mouth daily. 0 methylPREDNISolone 4 Take by mouth 21 Each 0 12/19 4/ Active mg tabletsIndications: SEE-INSTRUCTIO 0 02 0 Bronchitis NS for 6 days. follow package directions brompheniramine-pseudo Take 5 mL by 200 mL 0 12/19 8 Active ephedrine-DM (BROMFED mouth 4 (four) 0 020 DM) 2-30-10 mg/5 mL times daily as syrupIndications: needed for Bronchitis Congestion/All ergies or Cough for up to 10 days. azithromycin Take 1 tablet 6 tablet 0 Act nica (ZITHROMAX Z-WINSTON) 250 by mouth daily 0 020 mg tabletIndications: for 5 days. Bronchitis Take 500 mg day 1, then 250 mg days 2 to 5. levofloxacin Take 1 Tab by 6 Tab 0 Dis continued (LEVAQUIN) 750 mg mouth every 24 5 020 (Therapy tablet (twenty-four) comple jae) hours. documented as of this encounter (statuses as of 01/05/2020) Active Problems No known active problemsdocumented as of this encounter (statuses as of 01/05/2020) Social History Tobacco Use Types Packs/Day Years Used Date Current Every Day Smoker Smokeless Tobacco: Never Used Tobacco Cessation: Ready to Quit: Yes; C ounseling Given: Yes Sex Assigned at Date Recorded Not on file COVID-19 Exposure Response Date Recorded In the last month, have you been in contact with No / Unsure 01/05/2020 2:49 PM CDT someone who was confirmed or suspected to have Coronavirus / COVID-19? documented as of this encounter Last Filed Vital Signs Vital Sign Reading Time Taken Comments Blood Pressure 115/78 01/05/2020 2:53 PM CDT Pulse 93 01/05/2020 2:53 PM CDT Temperature 36.9 C (98.4 F) 01/05/2020 2:53 PM CDT Respiratory Rate 18 01/05/2020 2:53 PM CDT Oxygen Saturation 95% 01/05/2020 2:53 PM CDT Inhaled Oxygen Concentration - - Weight 74.8 kg (165 lb) 01/05/2020 2:53 PM CDT Height 180.3 cm (5' 11") 01/05/2020 2:53 PM CDT Body Mass Index 23.01 01/05/2020 2:53 PM CDT documented in this encounter Patient Instructions Patient InstructionsMindy Zayas FNP - 01/05/2020 2:40 PM CDT Patient Education Bronchitis, Antibiotic Treatment (Adult) Bronchitis is an infection of the air passages (bronchial tubes) in your lungs. It often occurs whenyou have a cold. This illness is contagious during the first few days and is spread through the air by coughing and sneezing, or by direct contact (touching the sick person and then touching your own eyes, nose, or mouth). Symptoms of bronchitis include cough with mucus (phlegm) and low-grade fever. Bronchitis usually lasts 7 to 14 days. Mild cases can be treated with simple home remedies. More severe infection is treated with an antibiotic. Home care Follow these guidelines when caring for yourself at home: If your symptoms are severe, rest at home for the first 2 to 3 days. When you go back to your usual activities, don't let yourself get too tired. Don't smoke. Also stay away from secondhand smoke. You may use rtxm-wzl-kagqkhb medicines to control fever or pain, unless another medicine was prescribed. If you have chronic liver or kidney disease or have ever had a stomach ulcer or gastrointestinal bleeding, talk with your healthcare provider before using these medicines. Also talk to your provider if you are taking medicine to prevent blood clots. Aspirin should never be given to anyone younger than 18 who is ill with a viral infection or fever. It may cause severe liver or brain damage. Your appetite may be low, so a light diet is fine. Stay well hydrated by drinking 6 to 8 glasses of fluids per day. This includes water, soft drinks, sports drinks, juices, tea, or soup. Extra fluids will help loosen mucus in your nose and lungs. Jaxh-ptn-mnfkaac cough, cold, and sore-throat medicines will not shorten the length of the illness, but they may be helpful to reduce your symptoms. Don't use decongestants if you have high blood pressure. Finish all antibiotic medicine. Do this even if you are feeling better after only a few days. Follow-up care Follow up with your healthcare provider, or as advised. If you had an X-ray or ECG (electrocardiogram), a specialist will review it. You will be told of any new test results that may affect your care. If you are age 65 or older, if you smoke, or if you have a chronic lung disease or condition that affects your immune system, askyour healthcare provider about getting apneumococcal vaccine and a yearly flu shot (influenza vaccine). When to seek medical advice Call your healthcare provider right away if any of these occur: Fever of 100.4F (38C) or higher, or as directed by your healthcare provider Coughing up more sputum Weakness, drowsiness, headache, facial pain, ear pain, or a stiff neck Call 911 Call 911 if any of these occur. Coughing up blood Weakness, drowsiness, headache, or stiff neck that get worse Trouble breathing, wheezing, or pain with breathing [employer] last reviewed this educational content on 09/17/201719996217-5179 [employer] [place] [address], [place] [address]. All rights reserved. This information is not intended as a substitute for professional medical care. Always follow your healthcare professional's instructions. Patient Education Viral or Bacterial Bronchitis with Wheezing(Adult) Bronchitis is an infection of the air passages. It often occurs during a cold and is usually caused by a virus. Symptoms include cough with mucus (phlegm) and low-grade fever. This illness is contagious during the first few days and is spread through the air by coughing and sneezing, or by direct contact (touching the sick person and then touching your own eyes, nose, or mouth). If there is a lot of inflammation, air flow is restricted. The air passages may also go into spasm, especially if you have asthma. This causes wheezing and difficulty breathing even in people who do not have asthma. Bronchitis usually lasts 7 to 14 days. The wheezing should improve with treatment during the first week. An inhaler is often prescribed to relax the air passages and stop wheezing. Antibiotics will be prescribed if your doctor thinks there is also a secondary bacterial infection. Home care If symptoms are severe, rest at home for the first 2 to 3 days. When you go back to your usual activities, don't let yourself get too tired. Dont s'moke. Also avoid being exposed to secondhand smoke. You may use jiaj-ktg-znwwiwu medicine to control fever or pain, unless another medicine was prescribed. Note: If you have chronic liver or kidney disease or have ever had a stomach ulcer or gastrointestinal bleeding, talk with your healthcare provider before using these medicines. Also talk to yourprovider if you are taking medicine to prevent blood clots.) Aspirin should never be given to anyoneyounger than 18 years of age who is ill with a viral infection or fever. It may cause severe liver or brain damage. Your appetite may be poor, so a light diet is fine. Stay well hydrated by drinking 6 to 8 glassesof fluids per day (such as water, soft drinks, sports drinks, juices, tea, or soup). Extra fluids will help loosen secretions in the nose and lungs. Ypml-yki-qgqkqfc cough, cold, and sore-throat medicines will not shorten the length of the illness, but they may be helpful to reduce symptoms. (Note: Don't use decongestants if you have high blood pressure.) If you were given an inhaler, use it exactly as directed. If you need to use it more often than prescribed, your condition may be worsening. If this happens, contact your healthcare provider. If prescribed, finish all antibiotic medicine, even if you are feeling better after only a few days. Follow-up care Follow up with your healthcare provider, or as advised. If you had an X-ray or ECG (electrocardiogram), a specialist will review it. You will be notified of any new findings that may affect your care. If you are age 65 or older, or if you have a chronic lung disease or condition that affects your immune system, or you smoke, ask your healthcare provider about getting a pneumococcal vaccine and a yearly flu shot (influenza vaccine). When to seek medical advice Call your healthcare provider right away if any of these occur: Fever of 100.4F (38C) or higher, or as directed by your healthcare provider Coughing up increasing amounts of colored sputum Weakness, drowsiness, headache, facial pain, ear pain, or a stiff neck Call 911 Call 911 if any of these occur. Coughing up blood Worsening weakness, drowsiness, headache, or stiff neck Increased wheezing not helped with medication, shortness of breath, or pain with breathing [employer] last reviewed this educational content on 09/17/[id number] [employer]. [address] [place] [address]. All rights reserved. This information is not intended as a substitute for professional medical care. Always follow your healthcare professional's instructions. documented in this encounter Progress Notes Mindy Zayas FNP - 01/05/2020 2:40 PM CDT Cc: Chief Complaint Patient presents with UPPER RESPIRATORY INFECTION Pt states he has asthma and COPD. He stopped smoking back in September. He slipped up the last few weeks and now has some lung issues going on. He is hacking greenish yellow muces when he can get nything up. no other symptoms. Daryn Ramos Jr. is a 49 year old male. Patient is here with URI symptoms, more so cough as detailed below. He is an active smoker with hx os both COPD and Asthma. URI Presenting symptoms: congestion and cough Presenting symptoms: no fatigue and no fever Congestion: Location: Nasal Interferes with sleep: no Interferes with eating/drinking: no Cough: Cough characteristics: Dry and hacking Sputum characteristics: Nondescript Severity: Moderate Onset quality: Gradual Duration: 3 weeks Timing: Constant Progression: Worsening Chronicity: New Severity: Moderate Onset quality: Gradual Timing: Constant Progression: Worsening Chronicity: New Relieved by: Nothing Worsened by: Nothing Ineffective treatments: OTC medications Associated symptoms: wheezing Associated symptoms: no headaches Wheezing: Severity: Mild Onset quality: Gradual Timing: Intermittent Progression: Unchanged Chronicity: New Risk factors: no sick contacts Allergies Daryn is allergic to cat dander; dog dander; cat's claw (uncaria tomentosa); eggshell membrane; andpenicillins. Medications Outpatient Medications Prior to Visit Medication Sig Dispense Refill albuterol (PROVENTIL) 2.5 mg /3 mL (0.083 %) nebulizer solution Inhale 3 mL every 4 (four) hours. May also nebulize one extra every 6 hours. 20 mL 0 famotidine 20 mg tablet Take 20 mg by mouth daily. albuterol (PROVENTIL) 2.5 mg /3 mL (0.083 %) nebulizer solution Inhale 3 mL every 4 (four) hours. May also nebulize one extra every 6 hours. 20 mL 0 albuterol (VENTOLIN) 90 mcg/actuation inhaler Inhale 2 Puffs every 6 (six) hours as needed for Wheezing or Shortness of Breath. 8.5 g 1 levofloxacin (LEVAQUIN) 750 mg tablet Take 1 Tab by mouth every 24 (twenty- four) hours. 6 Tab 0 predniSONE (DELTASONE) 20 mg tablet Take 1 [...] file Gets together: Not on file Attends hinduism service: Not on file Active member of [...] Negative. Negative for chills, fatigue and fever. HENT: Positive for congestion. Respiratory: Positive for cough and wheezing. Negative for chest tightness and shortness of breath. Cardiovascular: Negative. Negative for chest pain and palpitations. Gastrointestinal: Negative. Neurological: Negative. Negative for syncope, weakness, light-headedness and headaches. Psychiatric/Behavioral: Negative. Endocrine: Endocrine negative Vital Signs BP 115/78 | Pulse 93 | Temp 36.9 C (98.4 F) | Resp 18 | Ht 5' 11" (1.803 m) | Wt 165 lb (74.8 kg) | SpO2 95% | BMI 23.01 kg/m Physical Exam Vitals signs and nursing note reviewed. Constitutional: General: He is not in acute distress. Appearance: He is well-developed. HENT: Head: Normocephalic. Right Ear: Hearing, tympanic membrane, ear canal and external ear normal. Left Ear: Hearing, tympanic membrane, ear canal and external ear normal. Nose: Nose normal. Right Sinus: No maxillary sinus tenderness or frontal sinus tenderness. Left Sinus: No maxillary sinus tenderness or frontal sinus tenderness. Mouth/Throat: Lips: [place]. Mouth: Mucous membranes are moist. Pharynx: Oropharynx is clear. No oropharyngeal exudate or posterior oropharyngeal erythema. Tonsils: No tonsillar exudate. Cardiovascular: Rate and Rhythm: Normal rate and regular rhythm. Heart sounds: Normal heart sounds. No murmur. No friction rub. No gallop. Pulmonary: Effort: Pulmonary effort is normal. No respiratory distress. Breath sounds: Normal breath sounds. No stridor. No wheezing or rales. Chest: Chest wall: No tenderness. Abdominal: General: Bowel sounds are normal. Palpations: Abdomen is soft. Lymphadenopathy: Head: Right side of head: No submental, submandibular, tonsillar, preauricular or posterior auricular adenopathy. Left side of head: No submental, submandibular, tonsillar, preauricular or posterior auricular adenopathy. Cervical: No cervical adenopathy. Skin: General: Skin is warm and dry. Capillary Refill: Capillary refill takes less than 2 seconds. Neurological: Mental Status: He is alert and oriented to person, place, and time. Psychiatric: Mood and Affect: Mood normal. Assessment/Plan Bronchitis (primary encounter diagnosis) Comment: Plan: methylPREDNISolone 4 mg tablets, iuqfcscrejtgngt-idrmxxyjbaaqhbc-NB (BROMFED DM) 2-30-10 mg/5 mL syrup, azithromycin (ZITHROMAX Z-WINSTON) 250 mg tablet Continue albuterol inhaler at previously prescribed Suspected 2019 Novel Coronavirus Infection Comment: Plan: COVID-19 (PCR MOLECULAR TESTING) Suspected Covid-19 Virus Infection - COVID-19 (PCR MOLECULAR TESTING); Future - COVID-19 (PCR MOLECULAR TESTING) - Quarantine until your COVID results are back Criteria met - Covid testing - pending. This test can take 2-3 days to be resulted. While the test is pending...Please socially isolate your self - do not go out to stores or out in public. We will contact you once we have the results. If you are negative - continue with symptomatic treatment. (see below) Patients who have positive results will be contacted by the health department to enforce quarantine measures and for additional community contact tracing. The Infection Control Department will also undertake evaluation of exposures in our healthcare facility. If symptoms worsen - please call your Primary Care Doctor - do not go into the clinic. Call first. Cough Comment: related to bronchitis Plan: methylPREDNISolone 4 mg tablets, kbifznhnxdybljl-yvduyhkgslwcwnq-LM (BROMFED DM) 2-30-10 mg/5 mL syrup, azithromycin (ZITHROMAX Z-WINSTON) 250 mg tablet Continue albuterol inhaler at previously prescribed Current smoker: Smoking cessation encouraged. Clinical references for home care instructions reviewed and copy given. Plan of care, desired health behaviors, goals, and medication discussed with patient. Education resources provided and reviewed with AVS. Patient/guardian/family verbalized understanding & agrees to plan of care. This visit did not involve counseling and coordination that comprised more than 50% of the visit time. If applicable, the [facility] database was accessed to review any controlled substance prescription claims data. The [employer] prescription claims data in [employer] was reviewed to assess patient compliance with the medication treatment plan. Kalyani Jeronimo MA - 01/05/2020 2:40 PM CDT Daryn Ramos Jr. is a 49 year old male Chief Complaint Patient presents with UPPER RESPIRATORY INFECTION Pt states he has asthma and COPD. He stopped smoking back in September. He slipped up the last few weeks and now has some lung issues going on. He is hacking greenish yellow muces when he can get nything up. no other symptoms. Vitals: 01/05/20 1453 BP: 115/78 Pulse: 93 Resp: 18 Temp: 36.9 C (98.4 F) SpO2: 95% Weight: 165 lb (74.8 kg) Height: 5' 11" (1.803 m) [id number] [place], [place] - [facility] [employer] [facility] [employer] All Vitals taken, allergies and all medications reviewed, fall risk assessed. Pain level 0. Patient educated on plan of care for visit, swabbing technique, risks and benefits of test and length of time to receive results. Verbal consent obtained to perform test. CDC Fact Sheet for Patients nCoV Diagnostic Panel dated 07/02/2019 provided. Bilate nares swabbed during COVID19 nasopharyngeal swab. documented in this encounter Plan of Treatment Name Type Priority Associated Diagnoses Order S chedule COVID-19 (PCR MOLECULAR LAB Routine Suspected 2018 No alexander Ordered: 01/05/2020 TESTING) Coronavirus Infection Health Maintenance Due Date Last Done Comments [...] filedocumented in this encounter Visit Diagnoses Diagnosis Bronchitis - Primary Bronchitis, not specified as acute or ch ronic Suspected 2018 Novel Coronavirus Infecti on Cough Smoker Tobacco use disorder documented in this encounter Additional Health Concerns Infection Onset Date Last Indicated Resolved Time COVID-19 Rule Out 01/05/2020 01/05/2020 documented as of this encounter documented as of this encounter
--- OUTSIDE RECORDS SUMMARY | 2020-03-26 20:53 | XMS REPORT | Summary of Care ---
:1970 Author Organization [facility] Address [address] [place] [address] Care Team Providers Name Role Phone Mindy Carter [facility] Primary Care Provider Reason for Referral MRI/CAT Scan (STAT) Status Reason Specialty Diagnoses / Referred By Referred To Procedures Contact Contact New Request Diagnostic Diagnoses Cough, persistent Lesion of left lung Mindy Carter, Radiology Procedures CT LUNG NODULE CT LUNG NODULE IMPROVEMENT SPEC [address] [facility] [id number] [place] [address] Reason for Visit Reason Comments Cough non-productive x 01/02/2020 Shortness of Breath Encounter Details Date Type Department Care Team Description 01/15/[address] [facility] Ines Vizcaino, IMPROVEMENT SPEC [address] [facility] [address] [place] [address] Cough, persistent (Primary Dx); Medicine - [place] Provider, [facility] Lesion of left lung [address] [place] [address] Allergies Active Allergy Reactions Severity Noted Date Comments Cat Dander Shortness of Breath High 09/21/2017 Cat's Claw (Uncaria Tomentosa) Unknown - See comments 09/21/2017 Dog Dander Shortness of Breath High 09/21/2017 Eggshell Membrane Unknown - See comments 09/21/2017 Unknown Penicillins Rash Low 09/21/2017 documented as of this encounter (statuses as of 01/16/2020) Medications Medication Sig Dispensed Refills Start Date End Date Status albuterol Inhale 3 mL every 20 mL 0 03/27/2015 A ctive (PROVENTIL) 2.5 mg 4 (four) hours. /3 mL (0.083 %) May also nebulize nebulizer solution one extra every 6 hours. albuterol Inhale 2 Puffs 8.5 g 1 03/27/2015 Acti ve (VENTOLIN) 90 every 6 (six) mcg/actuation hours as needed inhaler for Wheezing or Shortness of Breath. predniSONE [...] by 0 12/04/2019 Active tablet mouth daily. brompheniramine-pse Take 5 mL by mouth 200 mL 0 01/05/2020 01/15/2020 udoephedrine-DM 4 (four) times (BROMFED DM) daily as needed 2-30-10 mg/5 mL for syrupIndications: Congestion/Allergi Bronchitis es or Cough for up to 10 days. documented as of this encounter (statuses as of 01/16/2020) Active Problems No known active problemsdocumented as of this encounter (statuses as of 01/16/2020) Social History Tobacco Use Types Packs/Day Years Used Date Current Every Day Smoker Smokeless Tobacco: Never Used Sex Assigned at Date Recorded Not on file COVID-19 Exposure Response Date Recorded In the last month, have you been in contact with No / Unsure 01/15/2020 4:25 PM CDT someone who was confirmed or [...] documented in this encounter Progress Notes Mindy Carter FNP - 01/15/2020 3:20 PM CDT Cc: Chief [...] Prior to Visit Medication Sig Dispense Refill lsnzkgasbpsruge-fjuvuenrnpdfdyi-ZE (BROMFED DM) 2-30-10 mg/5 mL syrup Take [...] file Gets together: Not on file Attends confucianist service: Not on file Active member of [...] of the visit time. If applicable, the [facility] database was accessed to review any controlled substance prescription claims data. The [employer] prescription claims data in Udacity was reviewed to assess patient compliance with [...] (74.8 kg) Height: 5' 11" (1.803 m) [id number] - [place], [place] - [address] [facility] [address] Patient AAOx4 and in no acute distress. All Vitals taken, allergies and all medications reviewed, fall risk assessed. Pain level 5. documented in this encounter Miscellaneous Notes Addendum Note - Mindy Carter FNP - 01/15/2020 3:20 PM CDT Addended by: SUZIE CARTER DNP, CYNTHIA O on: 01/16/2020 04:01 PM Modules accepted: Orders ddendum Note - Mindy Carter FNP - 01/15/2020 3:20 PM CDT Addended by: SUZIE CARTER DNP, CYNTHIA O on: 01/16/2020 01:18 PM Modules accepted: Orders documented in this encounter Plan of Treatment Name Type Priority Associated Diagnoses Order S chedule CT LUNG NODULE IMAGING STAT Cough, persisten t Expected: 01/16/2020, Lesion of left lung Expires: 01/15/2021 Health Maintenance Due Date Last Done Comments PNEUMOCOCCAL 0-64 YEARS COMBINED SERIES (1 of 1 - 1974 PPSV23) Depression Screening 1980 DTaP,Tdap,and Td Vaccines (1 - Tdap) 10/25/1987 COLON CANCER SCREENING ANNUAL FIT/FOBT 2018 COLON CANCER SCREENING FIT DNA EVERY 3 YEARS 2018 COLON CANCER SCREENING SIGMOIDOSCOPY EVERY 5 YEARS 2018 COLONOSCOPY 2018 Colorectal Cancer Screening 2018 Zoster Recombinant Vaccine (SHINGRIX) (1 of 2) 2018 INFLUENZA VACCINE (#1) 2019 documented as of this encounter Results XR CHEST 2 VW (01/15/2020 5:12 PM CDT) Specimen Impressions Performed At PACS/VR/DOSE Suspected mass lesion left lower lobe. A CT scan is re commended for further evaluation Narrative Performed At PROCEDURE: XR CHEST 2 VW PACS/VR/DOSE CLINICAL INDICATION: Prolonged cough, co vid negative COMPARISON: Chest radiograph from 04/05 FINDINGS: Left paracardiac opacity is visualized, and is new.Thi s suspected lesion is not well appreciated on the lateral view, and may repr esent a pseudolesion (summation of shadows) The rest of the lungs are clear No pleural effusion or pneumothorax is seen. The heart is no rmal in size. No acute bony abnormality. Procedure Note [facility], Radiant Results Inft User - 2019 7:22 AM CDT PROCEDURE: XR CHEST 2 VW CLINICAL INDICATION: Prolonged cough, co vid negative COMPARISON: Chest radiograph from 04/05 FINDINGS: Left paracardiac opacity is visualized, and is new.This suspected lesion is not well appreciated on the lateral view , and may represent a pseudolesion (summation of shadows) The rest of the l ungs are clear No pleural effusion or pneumothorax is seen. The heart is no rmal in size. No acute bony abnormality. IMPRESSION Suspected mass lesion left lower lobe. A CT scan is recommended for further evaluation Performing Organization Address City/State/Zipcode Phone Number PACS/VR/DOSE documented in this encounter Visit Diagnoses Diagnosis Cough, persistent - Primary Cough Lesion of left lung Other diseases of lung, not elsewhere cl assified documented in this encounter documented as of this encounter
--- OUTSIDE RECORDS SUMMARY | 2020-03-26 20:53 | XMS REPORT | Summary of Care ---
:1970 Author Organization [facility] - Health Address [address] [place] [address] Care Team Providers Name Role Phone Mindy Zayas [facility] Primary Care Provider Encounter Details Date Type Department Care Team Description 01/16/2020 Orders Only [facility] Doctor Unassigned, No [address] [facility] [place] [address] [address] [place] [address] Allergies Active Allergy Reactions Severity Noted Date [...] Date Status albuterol (PROVENTIL) Inhale 3 mL every 4 20 mL 0 03/27/20 15 Active 2.5 mg /3 mL (0.083 (four) hours. May %) nebulizer solution also nebulize one extra every 6 hours. albuterol (VENTOLIN) Inhale 2 Puffs 8.5 g 1 03/27/2015 Active 90 mcg/actuation every 6 (six) hours inhaler as needed for Wheezing or Shortness of Breath. predniSONE Take 1 Tab by mouth 14 Tab 0 03/27/2015 Active (DELTASONE) 20 mg 2 (two) times tablet daily. albuterol (PROVENTIL) Inhale 3 mL every 4 20 mL 0 03/27/20 15 Active 2.5 mg /3 mL (0.083 (four) hours. May %) nebulizer solution also nebulize one extra every 6 hours. famotidine 20 mg Take 20 mg by mouth 0 12/04/2019 Active tablet daily. documented as of this encounter (statuses as [...] Treatment Date Type Specialty Care Team Description 01/16/2020 Appointment Radiology Mindy Zayas, [place] [address] [phone] Health Maintenance Due Date Last Done [...] (#1) 2019 documented as of this encounter Procedures Procedure Name Priority Date/Time Associated Diagnosis Comme nts CONSENT/REFUSAL FOR Routine 01/16/2020 4:20 PM DIAGNOSIS AND TREATMENT CDT ASSIGNMENT OF BENEFITS Routine 01/16/2020 4:20 PM CDT documented in this encounter Results Not on filedocumented in this encounter Insurance Payer Benefit Plan / Group Subscriber ID Effective Dates Phone Address Type CIGNA CIGNA GENERIC [id number] 2020-Present HMO/PPO/POS documented as of this encounter
--- OUTSIDE RECORDS SUMMARY | 2020-03-26 20:53 | XMS REPORT | Summary of Care ---
:1970 Author Organization [facility] Address [address] [place] [address] Care Team Providers Name Role Phone Edie Carter PRINCIPAL CONSULTING ENGINEER Primary Care Provider Reason for Referral MRI/CAT Scan (ANANTH) Status Reason Specialty Diagnoses / Referred By Referred To Procedures Contact Contact New Request Diagnostic Diagnoses Cough, persistent Lesion of left lung Edie Carter, Radiology Procedures CT LUNG NODULE PRINCIPAL CONSULTING ENGINEER [address] [facility] [id number] [place] [phone] Reason for Visit Reason Comments Cough non-productive x 01/02/2020 Shortness of Breath Encounter Details Date Type Department Care Team Description 01/15/2020 Urgent Care [facility] Family Ines Vizcaino, PRINCIPAL CONSULTING ENGINEER [address] [facility] [address] [place] [address] Cough, persistent (Primary Dx); Medicine - [place] Provider, [facility] Lesion of left lung [address] [place] [address] Allergies Active Allergy Reactions Severity [...] CDT documented in this encounter Progress Notes Edie Carter, [place] - 01/15/2020 3:20 PM CDT Cc: Chief [...] Prior to Visit Medication Sig Dispense Refill eercrpcylxrvxcu-iiasmbhimbkxscz-AV (BROMFED DM) 2-30-10 mg/5 mL syrup Take [...] file Gets together: Not on file Attends jain service: Not on file Active member of [...] of the visit time. If applicable, the [facility] database was accessed to review any controlled substance prescription claims data. The [employer] prescription claims data in [employer] was reviewed to assess patient compliance with [...] (74.8 kg) Height: 5' 11" (1.803 m) [id number] - [place], [place] - [address] [facility] [address] Patient AAOx4 and in no acute distress. All Vitals taken, allergies and all medications reviewed, fall risk assessed. Pain level 5. documented in this encounter Miscellaneous Notes Addendum Note - Edie Carter FNP - 01/15/2020 3:20 PM CDT Addended by: FREDERICK CARTER DNP-EDIE CAVAZOS on: 01/16/2020 01:18 PM Modules accepted: Orders documented in this encounter Plan of Treatment Name Type Priority Associated Diagnoses Order S chedule CT LUNG NODULE IMAGING ANANTH Cough, persisten t Expected: 01/16/2020, Lesion of [...]
--- OUTSIDE RECORDS SUMMARY | 2020-03-26 20:53 | XMS REPORT | Summary of Care ---
:1970 Author Organization [facility] Address [address] [place] [address] Care Team Providers Name Role Phone Mindy Zayas Primary Care Provider Encounter Details Date Type Department Care Team Description 01/15/2020 Hospital Encounter [facility] Justo Zayas FNP [facility] Radiology [address] [facility] [id number] [place] [address] [place], [place] [phone] [address] Allergies Active Allergy Reactions Severity Noted Date [...] filedocumented in this encounter Plan of Treatment Name Type Priority Associated Diagnoses Date/Ti me XR CHEST 2 VW IMAGING Routine Cough, persistent 0 5:12 PM CDT Name Type Priority Associated Diagnoses Order S chedule XR CHEST 2 VW IMAGING Routine Cough, persistent ONCE for 1 Occurrences starting 01/15/2020 unti l 01/15/2020 Health Maintenance Due Date Last Done Comments [...] 2019 documented as of this encounter Results Not on filedocumented in this encounter Visit Diagnoses Diagnosis Cough, persistent Cough documented in this encounter documented as of this encounter
--- OUTSIDE RECORDS SUMMARY | 2020-03-26 20:54 | XMS REPORT | Summary of Care ---
:1970 Author Organization [facility] Address [address] [place] [address] Care Team Providers Name Role Phone Mindy Carter MARKET MAKER Primary Care Provider Reason for Referral (Routine) Status Reason Specialty Diagnoses / Referred By Referred To Procedures Contact Contact New Request Pulmonary Disease Diagnoses Cough Smoker Lung nodules Mindy Carter, Procedures CONSULT/REFERRAL PULMONARY MARKET MAKER [address] [address] Reason for Visit Reason Comments UPPER RESPIRATORY [...] Department Care Team Description 01/05/2020 Urgent Care [facility] Family Bernice Carter MARKET MAKER [address] [address] Bronchitis (Primary Dx); Medicine - [place] Provider, [facility] Suspected 2019 Novel Coronavirus Infecti on; [address] Smoker; [place], [place] Lung nodules [phone] Allergies Active Allergy Reactions Severity Noted Date Comments Cat Dander Shortness of Breath High 09/21/2017 Cat's Claw ([place] Arangoosa) Unknown - See comments 09/21/2017 Dog Dander Shortness of Breath High 09/21/2017 Eggshell Membrane Unknown - See comments 09/21/2017 Unknown Penicillins Rash Low 09/21/2017 documented as of this encounter (statuses as of 01/18/2020) Medications Medication Sig Dispensed Refills Start End [...] by 0 Active tablet mouth daily. 0 levofloxacin Take 1 Tab by 6 Tab 0 Dis continued (LEVAQUIN) 750 mg mouth every 24 5 020 (Therapy tablet (twenty-four) comple jae) hours. methylPREDNISolone 4 Take by mouth 21 Each 0 12/19 4/2 mg tabletsIndications: SEE-INSTRUCTIO 0 02 0 Bronchitis NS for 6 days. follow package directions brompheniramine-pseudo Take 5 mL by 200 mL 0 12/19 8/2 ephedrine-DM (BROMFED mouth 4 (four) 0 020 DM) 2-30-10 mg/5 mL times daily as syrupIndications: needed for Bronchitis Congestion/All ergies or Cough for up to 10 days. azithromycin Take 1 tablet 6 tablet 0 Exp ired (ZITHROMAX Z-WINSTON) 250 by mouth daily 0 020 mg tabletIndications: for 5 days. Bronchitis Take 500 mg day 1, then 250 mg days 2 to 5. documented as of this encounter (statuses as of 01/18/2020) Active Problems No known active problemsdocumented as of this encounter (statuses as of 01/18/2020) Social History Tobacco Use Types Packs/Day Years [...] in this encounter Patient Instructions Patient InstructionsMindy Carter FNP - 01/05/2020 2:40 PM CDT Patient [...] away from secondhand smoke. You may use vhod-yxn-ldfjxvt medicines to control fever or pain, unless [...] loosen mucus in your nose and lungs. Evii-nqw-pkafbip cough, cold, and sore-throat medicines will not [...] Trouble breathing, wheezing, or pain with breathing LearnUpon last reviewed this educational content on 09/17/201719992905-9344 [employer]. [address] [place] [address], [place] [address]. All rights reserved. This information is not [...] exposed to secondhand smoke. You may use ukzx-xku-brkjudd medicine to control fever or pain, unless [...] loosen secretions in the nose and lungs. Wuos-lot-uajthen cough, cold, and sore-throat medicines will not [...] shortness of breath, or pain with breathing LearnUpon last reviewed this educational content on 09/17/201719994492-8089 [employer]. [address] [place] [address]. All rights reserved. This information is not intended as a substitute for professional medical care. Always follow your healthcare professional's instructions. documented in this encounter Progress Notes Mindy Carter FNP - 01/05/2020 2:40 PM CDT Cc: [...] file Gets together: Not on file Attends buddhism service: Not on file Active member of [...] tenderness or frontal sinus tenderness. Mouth/Throat: Lips: [place]. Mouth: Mucous membranes are moist. Pharynx: Oropharynx [...] diagnosis) Comment: Plan: methylPREDNISolone 4 mg tablets, fiqwqnvubbxqzbv-kotilyuclzisfno-JG (BROMFED DM) 2-30-10 mg/5 mL syrup, azithromycin [...] to bronchitis Plan: methylPREDNISolone 4 mg tablets, zzdohoapqbtmabh-asljqtvrgrsqcpi-BV (BROMFED DM) 2-30-10 mg/5 mL syrup, azithromycin [...] visit time. If applicable, the [facility] database was accessed to review any controlled substance prescription claims data. The [employer] prescription claims data in [employer]om[employer] was reviewed to assess patient compliance with [...] (74.8 kg) Height: 5' 11" (1.803 m) [id number] - [address] AT [address] [facility] & [place] [facility] All Vitals taken, allergies and all medications [...] COVID19 nasopharyngeal swab. documented in this encounter Miscellaneous Notes Addendum Note - Mindy Carter FNP - 01/05/2020 2:40 PM CDT Addended by: SUZIE CRATER DNP, CYNTHIA O on: 01/18/2020 09:11 AM Modules accepted: Orders documented in this encounter Plan of Treatment Health [...] Name Priority Date/Time Associated Diagnosis Comme nts COVID-19 (PCR Routine 01/05/2020 2:44 PM Suspected 2019 Novel Results for this MOLECULAR TESTING) CDT Coronavirus procedure are in Infection the results section. documented in this encounter Results COVID-19 (PCR MOLECULAR TESTING) (01/05/2020 2:44 PM CDT) Pathologist Sig nature SARS-CoV-2 PCR Not Detected Not Detected [facility] Specimen Swab - NASOPHARYNGEAL SWAB Narrative Performed At [employer] SARS-CoV-2 Assay is a nucleic acid [facility] amplification test intended for the qualitative detect ion of RNA from SARS-CoV-2 from nasopharyngeal ([employer]) specimens . It is used under Emergency Use Authorizatio n (EUA) by FDA. A positive result is indicative of the presence of SARS-CoV-2 RNA. Clinical correlation with patient hi story and other diagnostic information is necessary to deter mine patient infection status. A negative (Not Detected) result does not preclude SARS-CoV-2 infection. Clinical correlation with ally ent history and other diagnostic information should be use d in patient management decisions. Invalid: Unable to generate a valid test result on thi s specimen. Please submit a new specimen for repeat te sting if clinically indicated. Performing Organization Address City/State/Zipcode Phone Number [facility] CLIA: [id number] [place] [address] [place] [address] documented in this encounter Visit Diagnoses Diagnosis Bronchitis - Primary Bronchitis, not specified as acute or ch ronic Suspected 2019 novel coronavirus infecti on Cough Smoker Tobacco use disorder Lung nodules Other nonspecific abnormal finding of lloyd ng field documented in this encounter Additional Health Concerns Infection Onset Date Last Indicated Resolved Time COVID-19 Rule Out 01/05/2020 01/05/2020 01/06/2020 2: 31 PM CDT documented as of this encounter documented as of this encounter
--- OUTSIDE RECORDS SUMMARY | 2020-03-26 20:54 | XMS REPORT | Summary of Care ---
:1970 Author Organization [facility] Address [address] [place] [address] Care Team Providers Name Role Phone Mindy Zayas SPECIALTY TRANSFORMER ASSEMBLER Primary Care Provider Reason for Referral MRI/CAT Scan (STAT) Status Reason Specialty Diagnoses / Referred By Referred To Procedures Contact Contact Closed Diagnostic Diagnoses Cough, persistent Lesion of left lung Mindy Zayas, Radiology Procedures CT LUNG NODULE CT LUNG NODULE SPECIALTY TRANSFORMER ASSEMBLER [address] [place] [address] Reason for Visit Auth/Cert Status Reason Specialty Diagnoses / Procedures Referred By Justo ludwig Referred To Contact Radiology [facility] [address] [place] [address] Phone: Fax: Encounter Details Date Type Department Care Team Description 01/16/2020 Hospital Encounter [facility] Justo Zayas FNP Arrived [employer] [address] [facility]ography [id number] [facility] [place] [address] Allergies Active Allergy Reactions Severity Noted Date Comments Cat Dander Shortness of Breath High 09/21/2017 Cat's Claw (Uncaria Tomentosa) Unknown - See comments 09/21/2017 Dog Dander Shortness of Breath High 09/21/2017 Eggshell Membrane Unknown - See comments 09/21/2017 Unknown Penicillins Rash Low 09/21/2017 documented as of this encounter (statuses as of 01/17/2020) Medications Medication Sig Dispensed Refills Start Date [...] as of this encounter (statuses as of 01/17/2020) Active Problems No known active problemsdocumented as of this encounter (statuses as of 01/17/2020) Social History Tobacco Use Types Packs/Day Years [...] Name Type Priority Associated Diagnoses Date/Ti me CT LUNG NODULE IMAGING STAT Cough, persisten t 01/16/2020 4:54 PM CDT Lesion of left lung Name Type Priority Associated Diagnoses Order S chedule CT LUNG NODULE IMAGING STAT Cough, persisten t ONCE for 1 Occurrences Lesion of left lung starting 01/16/2020 until 01/16/2020 Health Maintenance Due Date Last Done Comments [...] encounter Visit Diagnoses Diagnosis Cough, persistent Cough Lesion of left lung Other diseases of lung, not elsewhere cl assified documented in this encounter documented as of this encounter
--- OUTSIDE RECORDS SUMMARY | 2020-03-26 20:54 | XMS REPORT | Summary of Care ---
:1970 Author Organization [facility] Address [address] [place] [address] Care Team Providers Name Role Phone Mindy Zayas IDENTITY ACCESS MANAGEMENT ARCHITECT Primary Care Provider Reason for Referral MRI/CAT Scan (Routine) Status Reason Specialty Diagnoses / Referred By Referred To Procedures Contact Contact New Request Diagnostic Diagnoses Lung nodules Juanita Huizar, Radiology Procedures CT THORAX WO CONTRAST DO [address] [place] [id number] Reason for Visit Reason Comments New Patient Multiple lung nodules Cough (Routine) Status Reason Specialty Diagnoses / Referred By Referred To Procedures Contact Contact Closed Pulmonary Disease Diagnoses Cough Smoker Lung nodules Mindy Zayas, Procedures CONSULT/REFERRAL PULMONARY IDENTITY ACCESS MANAGEMENT ARCHITECT [address] [phone] Encounter Details Date Type Department Care Team Description 02/01/2020 Office Visit [facility] Health ADC Juanita Huizar DO Lung nodules (Primary Pulmonary Clinic [facility] Dx) [address] [place] [address] [phone] Allergies Active Allergy Reactions Severity Noted Date Comments Cat Dander Shortness of Breath High 09/21/2017 Cat's Claw (Uncaria Tomentosa) Unknown - See comments 09/21/2017 Dog Dander Shortness of Breath High 09/21/2017 Eggshell Membrane Unknown - See comments 09/21/2017 Unknown Penicillins Rash Low 09/21/2017 documented as of this encounter (statuses as of 02/01/2020) Medications Medication Sig Dispensed Refills Start Date [...] as of this encounter (statuses as of 02/01/2020) Active Problems No known active problemsdocumented as of this encounter (statuses as of 02/01/2020) Social History Tobacco Use Types Packs/Day Years Used Date Current Every Day Smoker Cigarettes 0.5 33 Sta rted: 1986 Smokeless Tobacco: Never Used Tobacco Cessation: Ready to Quit: Yes Sex Assigned at Date Recorded Not on file COVID-19 Exposure Response Date Recorded In the last month, have you been in contact with No / Unsure 02/01/2020 8:33 AM CDT someone who was confirmed or suspected to have Coronavirus / COVID-19? documented as of this encounter Last Filed Vital Signs Vital Sign Reading Time Taken Comments Blood Pressure 114/76 02/01/2020 8:39 AM CDT Pulse 76 02/01/2020 8:39 AM CDT Temperature - - Respiratory Rate - - Oxygen Saturation 97% 02/01/2020 8:39 AM CDT Inhaled Oxygen Concentration - - Weight 75 kg (165 lb 6.4 oz) 02/01/2020 8:39 AM CDT Height 180.3 cm (5' 11") 02/01/2020 8:39 AM CDT Body Mass Index 23.07 02/01/2020 8:39 AM CDT documented in this encounter Progress Notes Juanita Huizar DO - 02/01/2020 8:40 AM CDT [facility] Interventional Pul[facility]ology [facility] Chief Complaint: Lung nodules History of Present Illness: Daryn Ramos Jr. is a 49 year old male with lung nodules. No shortness of breath. Does have some cough. No weight loss. Quitting down on smoking. Past Medical History: None Past Surgical History None Family History: Non contributory to chief complaint Social History: reports that he has been smoking cigarettes. He started smoking about 33 years ago.He has a 16.50 pack-year smoking history. He has never used smokeless tobacco. Review of Systems: Review of Systems Constitutional: Negative. HENT: Negative. Eyes: Negative. Respiratory: Positive for cough. Cardiovascular: Negative. Gastrointestinal: Negative. Genitourinary: Negative. Musculoskeletal: Negative. Skin: Negative. Neurological: Negative. Psychiatric/Behavioral: Negative. Endocrine: Endocrine negative Objective: BP 114/76 (BP Location: Left arm, Patient Position: Sitting, BP CUFF SIZE: Adult Medium) | Pulse 76 | Ht 5' 11" (1.803 m) | Wt 165 lb 6.4 oz (75 kg) | SpO2 97% | BMI 23.07 kg/m Physical Exam Constitutional: He is oriented to person, place, and time. He appears well- developed and well-nourished. HENT: Head: Normocephalic and atraumatic. Eyes: Pupils are equal, round, and reactive to light. Conjunctivae and EOM are normal. Neck: Normal range of motion. Neck supple. Cardiovascular: Normal rate and regular rhythm. Pulmonary/Chest: Effort normal and breath sounds normal. Abdominal: Soft. Bowel sounds are normal. Musculoskeletal: Normal range of motion. Neurological: He is alert and oriented to person, place, and time. Psychiatric: He has a normal mood and affect. His behavior is normal. Judgment and thought content normal. Labs/Studies: CT lung: various tiny lung nodules, on my review area of fibrosis with nodular component about 7 mm.Remaining lung nodules tiny 2-3 mm Assessment: ICD-10-CM ICD-9-CM 1. Lung nodules R91.8 793.19 Plan: Repeat CT scan 6 months Follow up after that Patient is currently trying to quit smoking using nicotine patches documented in this encounter Plan of Treatment Name Type Priority Associated Diagnoses Order S chedule CT THORAX WO CONTRAST IMAGING Routine Lung nodules Expect ed: 07/30/2020, Expires: 2021 Health Maintenance Due Date Last Done Comments PNEUMOCOCCAL 0-64 YEARS COMBINED SERIES (1 of 1 - 1974 PPSV23) DTaP,Tdap,and Td Vaccines (1 - Tdap) 10/25/1987 COLON CANCER SCREENING ANNUAL FIT/FOBT 2018 COLON CANCER SCREENING FIT DNA EVERY 3 YEARS 2018 COLON CANCER SCREENING SIGMOIDOSCOPY EVERY 5 YEARS 2018 COLONOSCOPY 2018 Colorectal Cancer Screening 2018 Zoster Recombinant Vaccine (SHINGRIX) (1 of 2) 2018 INFLUENZA VACCINE (#1) 2019 Depression Screening 01/31/2021 02/01/2020 documented as of this encounter Results Not on filedocumented in this encounter Visit Diagnoses Diagnosis Lung nodules - Primary Other nonspecific abnormal finding of lloyd ng field documented in this encounter documented as of this encounter
--- OUTSIDE RECORDS SUMMARY | 2020-03-26 20:54 | XMS REPORT | Summary of Care ---
:1970 Author Organization [facility] - Health Address [address] [place] [id number] Care Team Providers Name Role Phone Mindy Zayas STOREROOM SUPERVISOR Primary Care Provider Reason for Visit Reason Comments Results Encounter Details Date Type Department Care Team Description 01/17/2020 Telephone [facility] Family Medicine Provider, [facility] Urgent Results - [address] [place] [phone] Allergies Active Allergy Reactions Severity Noted Date Comments Cat Dander Shortness of Breath High 09/21/2017 Cat's Claw (Uncaria Tomentosa) Unknown - See comments 09/21/2017 Dog Dander Shortness of Breath High 09/21/2017 Eggshell Membrane Unknown - See comments 09/21/2017 Unknown Penicillins Rash Low 09/21/2017 documented as of this encounter (statuses as of 01/19/2020) Medications Medication Sig Dispensed Refills Start Date [...] as of this encounter (statuses as of 01/19/2020) Active Problems No known active problemsdocumented as of this encounter (statuses as of 01/19/2020) Social History Tobacco Use Types Packs/Day Years [...] Signs Not on filedocumented in this encounter Miscellaneous Notes Telephone Encounter - Nehal Carty RN - 01/19/2020 10:19 AM CDT Access Center Izzy Reed MA 01/18/2020 11:19 AM Notified patient of test results/recommendations per Mindy Zayas and gave verbal understanding. Mindy Zayas FNP 01/18/2020 9:13 AM Please let patient know, her has multiple but small lung nodules per CT, because he is also symptomatic, referral has been made to pulmonology for continued care. elephone Encounter - Sherry Kumar - 01/17/2020 4:01 PM CDTPatient is calling for his CT results and is requesting a call back. documented in this encounter Plan of Treatment Health Maintenance Due Date Last Done Comments PNEUMOCOCCAL 0-64 YEARS COMBINED SERIES (1 of - 1974 PPSV23) Depression Screening 1980 DTaP,Tdap,and [...] Dates Phone Address Type [employer] [phone] 2020-Present HMO/PPO/POS documented as of this encounter
--- NOTE | 2020-03-26 20:55 | ER ---
Nurse's Notes [facility] Name: Daryn Ramos Jr Age: 49 yrs Sex: Male : 1970 Arrival Date: 03/26/2020 Time: 20:43 Bed 19 Private MD: Diagnosis: Acute bronchitis Presentation: 03/26 20:48 Chief complaint: Patient states: i was seen in [facility] today and they just rr5 discharged me with cough medicine. i think i have bronchitis. COVID test pending-result maybe tomorrow. I need abx and steroids. Coronavirus screen: Client denies travel out of the [place] in the last 14 days. Client presents with at least one sign or symptom that may indicate coronavirus-19. Standard/surgical mask placed on the client. Provider contacted for isolation considerations. The client indicates previous COVID test results are pending. Date of collection: March 26, 2020 results are pending. Staff notified of need for isolation. Ebola Screen: No symptoms or risks identified at this time. Initial Sepsis Screen: Does the patient meet any 2 criteria? No. Patient's initial sepsis screen is negative. Does the patient have a suspected source of infection? No. Patient's initial sepsis screen is negative. Risk Assessment: Do you want to hurt yourself or someone else? Patient reports no desire to harm self or others. Onset of symptoms was March 2020. 20:48 Method Of Arrival: Ambulatory rr5 20:48 Acuity: SALEEM 3 rr5 Historical: - Allergies: 20:51 EGG/POULTRY; rr5 20:51 PENICILLINS; rr5 - Home Meds: 20:51 albuterol sulfate Oral [Active]; rr5 - PMHx: 20:51 Anxiety; Asthma; COPD; rr5 - PSHx: 20:51 None; rr5 - Immunization history:: Flu vaccine is not up to date. - Social history:: Smoking status: Patient reports the use of cigarette tobacco products, Patient/guardian denies using alcohol, street drugs. Screenin:09 Abuse screen: Denies threats or abuse. Denies injuries from another. Nutritional rr5 screening: No deficits noted. Tuberculosis screening: No symptoms or risk factors identified. Fall Risk None identified. Total Cano Fall Scale indicates No Risk (0-24 pts). Assessment: 21:00 General: Appears in no apparent distress. comfortable, Behavior is calm, cooperative, rr5 appropriate for age. Pain: Complains of pain in chest Pain Quality of pain is described as aching, Pain began gradually, Is intermittent. Neuro: Level of Consciousness is awake, alert, obeys commands, Oriented to person, place, time, situation. Cardiovascular: Reports chest pain, Capillary refill < 3 seconds Patient's skin is warm and dry. Respiratory: Airway is patent Respiratory effort is even, unlabored, Respiratory pattern is regular, symmetrical. GI: No signs and/or symptoms were reported involving the gastrointestinal system. : No signs and/or symptoms were reported regarding the genitourinary system. EENT: No signs and/or symptoms were reported regarding the EENT system. Derm: Skin is intact, is healthy with good turgor, Skin temperature is warm. Musculoskeletal: Circulation, motion, and sensation intact. Capillary refill < 3 seconds. 21:10 Reassessment: Patient appears in no apparent distress at this time. Patient is alert, rr5 oriented x 3, equal unlabored respirations, skin warm/dry/pink. for discharged awaiting for shot time. 21:19 Reassessment: Patient appears in no apparent distress at this time. discharge rr5 instruction given and explained without complaints made. Vital Signs: 20:45 BP 137 / 98; Pulse 94; Resp 19 S; Temp 98.6(O); Pulse Ox 98% on R/A; ca1 20:48 Weight 73.94 kg; Height 5 ft. 11 in. (180.34 cm); rr5 21:19 BP 121 / 91; Pulse 92; Resp 17; Pulse Ox 98% ; rr5 20:48 Body Mass Index 22.73 (73.94 kg, 180.34 cm) rr5 ED Course: 20:43 Patient arrived in ED. ag3 20:50 Milka Montes De Oca FNP-C [facility]. snw 20:50 Bobby Banks MD is Attending Physician. snw 20:50 Triage completed. rr5 20:51 Arm band placed on. rr5 21:08 Blaine Sharma RN is Primary Nurse. rr5 21:09 Patient has correct armband on for positive identification. Bed in low position. Call rr5 light in reach. Pulse ox on. NIBP on. 21:10 No provider procedures requiring assistance completed. Patient did not have IV access rr5 during this emergency room visit. Patient maintains SpO2 saturation greater than 95% on room air. Administered Medications: 21:03 Drug: Zithromax 500 mg Route: PO; rr5 21:20 Follow up: Response: No adverse reaction rr5 21:03 Drug: Decadron 10 mg Route: IM; Site: right gluteus; rr5 21:20 Follow up: Response: Medication administered at discharge. rr5 21:20 Follow up: Response: No adverse reaction rr5 Outcome: 20:55 Discharge ordered by . jazmine 21:19 Discharged to home ambulatory. rr5 21:19 Condition: stable 21:19 Discharge instructions given to patient, Instructed on discharge instructions, follow up and referral plans. medication usage, Demonstrated understanding of instructions, follow-up care, medications, Prescriptions given X 3. 21:20 Patient left the ED. rr5 Signatures: Milka Montes De Oca, LEGAL SUMMER INTERN-C LEGAL SUMMER INTERN-Csnw Estefania Reyes3 Blaine Sharma RN RN rr5 Radha Montejo RN RN ca1 Corrections: (The following items were deleted from the chart) 20:57 20:56 BP 137 / 98; Pulse 94bpm; Resp 19bpm; Spontaneous; Pulse Ox 98% RA; Temp 98.6F ca1 Oral; ca1
--- NOTE | 2020-03-26 20:55 | EDPHYS ---
Physician Documentation [facility] Name: Daryn Ramos Jr Age: 49 yrs Sex: Male : 1970 Arrival Date: 03/26/2020 Time: 20:43 Bed 19 Private MD: ED Physician Bobby Banks HPI: 03/26 21:00 This 49 yrs old Male presents to ER via Ambulatory with complaints of Chest snw Tightness. 21:00 The patient or guardian reports cough. Associated signs and symptoms: Pertinent snw positives: wheezing and chest tightness. Severity of symptoms: At their worst the symptoms were mild in the emergency department the symptoms are unchanged. The patient has experienced similar episodes in the past, multiple times, chronically. The patient has been recently seen by a physician: today as noted. Historical: - Allergies: 20:51 EGG/POULTRY; rr5 20:51 PENICILLINS; rr5 - Home Meds: 20:51 albuterol sulfate Oral [Active]; rr5 - PMHx: 20:51 Anxiety; Asthma; COPD; rr5 - PSHx: 20:51 None; rr5 - Immunization history:: Flu vaccine is not up to date. - Social history:: Smoking status: Patient reports the use of cigarette tobacco products, Patient/guardian denies using alcohol, street drugs. ROS: 20:57 Constitutional: Negative for fever, chills, and weight loss, Eyes: Negative for injury, snw pain, redness, and discharge, ENT: Negative for injury, pain, and discharge, Neck: Negative for injury, pain, and swelling. 20:57 Abdomen/GI: Negative for abdominal pain, nausea, vomiting, diarrhea, and constipation, Back: Negative for injury and pain, : Negative for injury, bleeding, discharge, and swelling, MS/Extremity: Negative for injury and deformity, Skin: Negative for injury, rash, and discoloration, Neuro: Negative for headache, weakness, numbness, tingling, and seizure, Psych: Negative for depression, anxiety, suicide ideation, homicidal ideation, and hallucinations. 20:57 Cardiovascular: Positive for mild tightness. 20:57 Respiratory: Positive for cough, wheezing. Exam: 20:56 Constitutional: This is a well developed, well nourished patient who is awake, alert, snw and in no acute distress. Head/Face: Normocephalic, atraumatic. Eyes: Pupils equal round and reactive to light, extra-ocular motions intact. Lids and lashes normal. Conjunctiva and sclera are non-icteric and not injected. Cornea within normal limits. Periorbital areas with no swelling, redness, or edema. ENT: Nares patent. No nasal discharge, no septal abnormalities noted. Tympanic membranes are normal and external auditory canals are clear. Oropharynx with no redness, swelling, or masses, exudates, or evidence of obstruction, uvula midline. Mucous membranes moist. Neck: Trachea midline, no thyromegaly or masses palpated, and no cervical lymphadenopathy. Supple, full range of motion without nuchal rigidity, or vertebral point tenderness. No Meningismus. Chest/axilla: Normal chest wall appearance and motion. Nontender with no deformity. No lesions are appreciated. Cardiovascular: Regular rate and rhythm with a normal S1 and S2. No gallops, murmurs, or rubs. Normal PMI, no JVD. No pulse deficits. Abdomen/GI: Soft, non-tender, with normal bowel sounds. No distension or tympany. No guarding or rebound. No evidence of tenderness throughout. Back: No spinal tenderness. No costovertebral tenderness. Full range of motion. Skin: Warm, dry with normal turgor. Normal color with no rashes, no lesions, and no evidence of cellulitis. MS/ Extremity: Pulses equal, no cyanosis. Neurovascular intact. Full, normal range of motion. Neuro: Awake and alert, GCS 15, oriented to person, place, time, and situation. Cranial nerves II-XII grossly intact. Motor strength 5/5 in all extremities. Sensory grossly intact. Cerebellar exam normal. Normal gait. Psych: Awake, alert, with orientation to person, place and time. Behavior, mood, and affect are within normal limits. 20:56 Respiratory: the patient does not display signs of respiratory distress, Respirations: normal, Breath sounds: bronchial sounds, that are mild, are heard diffusely. Vital Signs: 20:45 BP 137 / 98; Pulse 94; Resp 19 S; Temp 98.6(O); Pulse Ox 98% on R/A; ca1 20:48 Weight 73.94 kg; Height 5 ft. 11 in. (180.34 cm); rr5 21:19 BP 121 / 91; Pulse 92; Resp 17; Pulse Ox 98% ; rr5 20:48 Body Mass Index 22.73 (73.94 kg, 180.34 cm) rr5 MDM: 20:50 Patient medically screened. aidee 20:57 Data reviewed: vital signs, nurses notes. Data interpreted: Pulse oximetry: on room air snw is 98 %. Interpretation: acceptable. Counseling: I had a detailed discussion with the patient and/or guardian regarding: the historical points, exam findings, and any diagnostic results supporting the discharge/admit diagnosis, smoking cessation. go home and quarantine until CoVid results from [facility] today are returned. Special discussion: Based on the history and exam findings, there is no indication for further emergent testing or inpatient evaluation. I discussed with the patient/guardian the need to see the primary care provider for further evaluation of the symptoms. ED course: Pt had an entire workup today at [facility] including CoVid 19 swab. Results due tomorrow and pt give rx for Cameron Nesbitt, states he has Albuterol at home. Administered Medications: 21:03 Drug: Zithromax 500 mg Route: PO; rr5 21:20 Follow up: Response: No adverse reaction rr5 21:03 Drug: Decadron 10 mg Route: IM; Site: right gluteus; rr5 21:20 Follow up: Response: Medication administered at discharge. rr5 21:20 Follow up: Response: No adverse reaction rr5 Disposition: 03/27 02:44 Co-signature as Attending Physician, Bobby Banks MD I agree with the assessment and [facility] plan of care. Disposition: 03/26/20 20:55 Discharged to Home. Impression: Acute bronchitis. - Condition is Stable. - Discharge Instructions: Acute Bronchitis, Adult, Steps to Quit Smoking, Smoking Hazards, Cough, Adult, Rehydration, Adult. - Prescriptions for Prednisone 20 mg Oral Tablet - take 2 tablet by ORAL route once daily for 5 days; 10 tablet. Pepcid 20 mg Oral Tablet - take 1 tablet by ORAL route once daily for 10 days; 10 tablet. Zithromax 500 mg Oral Tablet - take 1 tablet by ORAL route once daily for 5 days; 5 tablet. - Medication Reconciliation Form, Thank You Letter, Antibiotic Education, Prescription Opioid Use form. - Follow up: Emergency Department; When: As needed; Reason: Worsening of condition. Follow up: Private Physician; When: 1 - 2 days; Reason: Recheck today's complaints, Continuance of care, Re-evaluation by your physician. Signatures: Bobby Banks MD MD cha Waters, Shelly, PAINTING MANAGER-C PAINTING MANAGER-CsnBlaine Glynn, RN RN rr5 Corrections: (The following items were deleted from the chart) 03/26 21:20 20:55 03/26/2020 20:55 Discharged to Home. Impression: Acute bronchitis. Condition is rr5 Stable. Forms are Medication Reconciliation Form, Thank You Letter, Antibiotic Education, Prescription Opioid Use. Follow up: Emergency Department; When: As needed; Reason: Worsening of condition. Follow up: Private Physician; When: 1 - 2 days; Reason: Recheck today's complaints, Continuance of care, Re-evaluation by your physician. snw
--- OUTSIDE RECORDS SUMMARY | 2020-03-26 20:55 | XMS REPORT | Summary of Care ---
:1970 Author Organization [facility] Address [address] [place] [address] Care Team Providers Name Role Phone Mindy Zayas ARCGIS DEVELOPER Primary Care Provider Reason for Referral MRI/CAT Scan (Routine) Status Reason Specialty Diagnoses / Referred By Referred To Procedures Contact Contact New Request Diagnostic Diagnoses Lung nodules Juanita Huizar, Radiology Procedures CT THORAX WO CONTRAST DO [address] [place] [phone] Reason for Visit Reason Comments New Patient Multiple lung nodules Cough (Routine) Status Reason Specialty Diagnoses / Referred By Referred To Procedures Contact Contact Closed Pulmonary Disease Diagnoses Cough Smoker Lung nodules Mindy Zayas, Procedures CONSULT/REFERRAL PULMONARY ARCGIS DEVELOPER [address] [phone] Encounter Details Date Type Department Care Team Description 02/01/2020 Office Visit [facility] Health ADC Juanita Huizar DO Lung nodules (Primary Pulmonary Clinic [facility] Dx) [address] [place] [address] [phone] Allergies Active Allergy Reactions [...] Huizar DO - 02/01/2020 8:40 AM CDT [facility] Interventional Pulmonology Clinic Chief Complaint: Lung [...]
--- OUTSIDE RECORDS SUMMARY | 2020-03-26 20:55 | XMS REPORT | Summary of Care ---
:1970 Author Organization [facility] - Health Address [address] [place] [address] Care Team Providers Name Role Phone Mindy Zayas [facility] Primary Care Provider Reason for Visit Reason Comments Shortness of Breath Been here for samething befo re. Pt suffers from COPD and asthma. Pt states chest feels tight. started 3 days ago. Cough Exposure LAB Diarrhea Encounter Details Date Type Department Care Team Description 03/26/2020 Urgent Care [facility] Family Unknown, Attending Vir al illness (Primary Dx); Medicine - Ines Bean FNP [address] [place] [address] Fever, unspecified fever cause; [address] [facility] Provider, [facility] Exposure to SARS[place] [address] Allergies Active Allergy Reactions Severity Noted Date Comments Cat Dander Shortness of Breath High 09/21/2017 Cat's Claw (Uncaria [place]osa) Unknown - See comments 09/21/2017 Dog Dander Shortness of Breath High 09/21/2017 Eggshell Membrane Unknown - See comments 09/21/2017 Unknown Penicillins Rash Low 09/21/2017 documented as of this encounter (statuses as of 03/26/2020) Medications Medication Sig Dispensed Refills Start Date End Date Status albuterol (PROVENTIL) Inhale 3 mL every 20 mL 0 03/27/2015 Active 2.5 mg /3 mL (0.083 4 (four) hours. %) nebulizer solution May also nebulize one extra every 6 hours. albuterol (VENTOLIN) Inhale 2 Puffs 8.5 g 1 03/27/2015 Active 90 mcg/actuation every 6 (six) inhaler hours as needed for Wheezing or Shortness of Breath. predniSONE Take 1 Tab by 14 Tab 0 03/27/2015 Acti ve (DELTASONE) 20 mg mouth 2 (two) tablet times daily. albuterol (PROVENTIL) Inhale 3 mL every 20 mL 0 03/27/2015 Active 2.5 mg /3 mL (0.083 4 (four) hours. %) nebulizer solution May also nebulize one extra every 6 hours. famotidine 20 mg Take 20 mg by 0 12/04/2019 Active tablet mouth daily. benzonatate (TESSALON Take 1 capsule by 30 capsule 0 0 Active PERLES) 100 mg mouth 3 (three) capsuleIndications: times daily as Viral illness needed for Cough. documented as of this encounter (statuses as of 03/26/2020) Active Problems No known active problemsdocumented as of this encounter (statuses as of 03/26/2020) Social History Tobacco Use Types Packs/Day Years Used Date Current Every Day Smoker Cigarettes 0.5 33 Sta rted: 1988 Smokeless Tobacco: Never Used Sex Assigned at Date Recorded Not on file COVID-19 Exposure Response Date Recorded In the last month, have you been in contact with Yes 03/26/2020 4:21 PM [employer] someone who was confirmed or suspected to have Coronavirus / COVID-19? documented as of this encounter Last Filed Vital Signs Vital Sign Reading Time Taken Comments Blood Pressure 134/87 03/26/2020 4:47 PM [employer] Pulse 87 03/26/2020 4:47 PM [employer] Temperature 37.3 C (99.1 F) 03/26/2020 4:47 PM [employer] Respiratory Rate 20 03/26/2020 4:47 PM [employer] Oxygen Saturation 96% 03/26/2020 4:47 PM [employer] Inhaled Oxygen Concentration - - Weight 73.9 kg (163 lb) 03/26/2020 4:47 PM [employer] Height 180.3 cm (5' 11") 03/26/2020 4:47 PM [employer] Body Mass Index 22.73 03/26/2020 4:47 PM [employer] documented in this encounter Patient Instructions Patient InstructionsInes VizcainoFREDERICK - 03/26/2020 4:20 PM CST1. Viral illness 2. Fever, unspecified fever cause - POCT FLU A AND B (MOLECULAR) - NEGATIVE - benzonatate (TESSALON PERLES) 100 mg capsule; Take 1 capsule by mouth 3 (three) times daily as needed for Cough. Dispense: 30 capsule; Refill: 0 Viral Illness -- No focus suspicious for a bacterial process. Educated patient that viral illness usually last 7-10 days and resolve with symptomatic treatment. Based on onset of symptoms, exam findings, and negative flu test this is likely a viral illness. - counseled patient about at home care: Use Advil Cold/Sinus as needed for fever and/or congestion Use Robitussin DM or Mucinex DM to help with cough Tylenol and Ibuprofen as needed for pain and fever Rest Raise head of bed Increase fluids -HYDRATION WITH CLEAR LIQUIDS Vitamin C Warm salt water gargles or CEPACOL sprays for sore throat. Breath humidified air (steam) SIPPING WARM DRINKS may help. Warm Compresses (if sinus pressure or pain). HAND HYGIENE (with alcohol gels or hand washing) Advised to take Tylenol or Ibuprofen as per label recommendation as needed for pain or fever Honey 10mL (2 teaspoons) has been shown to relieve cough at bedtime. Dark Chocolate helps with cough (xanthenes) Avoidance of cigarette smoke, alcoholic drinks, diving into deep water and air travel is useful. Irrigate your nose with normal saline moisture spray 2 or 3 times a day. You may use a spray, squeeze bottle, or nasal pot. ? Nasal Congestion (Stopped Up): Oxymetazoline HCl (Afrin, 4-Way, & more) 0.05 % nasal spray, 1 spray each nostril at bedtime. Limit to 5 nights. If use twice a day then limit to 3 days. - Advised to follow up with PCP, return to Urgent Care, or go to the nearest Emergency Department sooner for any new, worsening, persistent, or concerning symptoms. 3. Exposure to SARS-associated coronavirus - COVID-19 (MOLECULAR TESTING NUCLEIC ACID AMPLIFICATION) - Quarantine until your COVID results are [...] not go into the clinic. Call first. Educated on the following at home care: - Discussed likely viral diagnosis and treatment plan with pt. - pt advised on frequent effective handwashing - pt advised to increase fluid intake , stay hydrated and get plenty of rest. - advised to have the pt take OTC to treat symptoms. - Pt advised to administer Tylenol as per label recommendation as needed for pain or fever - Cover mouth when coughing, wear mask - Stay in your own bedroom and use a separate bathroom - Keep at least 6 feet from you and others - Avoid sharing personal household items, dishes, glasses, cups, towels -Clean high traffic/touch areas daily. These include but not limited to: doorknobs, refrigerator/cabinet handles, phones, keyboards, tablets, light switches. - AVS and Written/handout materials appropriate to problem and teaching provided. - advised to go to the nearest Emergency Department sooner for any new, worsening, persistent, or concerning symptoms - Patient verbalized understanding of all instructions - Follow-up with PCP as needed, if no improvement EDUCATION: Handouts given: Patient educated on plan of care for visit, swabbing technique,risks and benefits of test and lengthof time to receive results. Verbal consent obtained to perform test. CDC Fact Sheet for patients nCoV Diagnostic Panel dated 07/02/2019 provided. "What to do if you are sick with COVID-19" CDC information guide reviewed with the patient and handout given to patient Education given to self quarantine until results are back. Will notify patient with results. Patient states understanding and all questions answered. Plan of care, goals and medications discussed with patient. Patient voices understanding. Barriers to care: none Ability to manage care: good FOLLOW UP: Pt advised to call 911 or go to the nearest Emergency Department sooner for any worsening, persistent, or concerning symptoms ER precautions given Plan of care, desired health behaviors, goals, and medication discussed with patient. Education resources provided and reviewed with AVS. Patient/guardian/family verbalized understanding & agrees to plan of care. Urgent Care precautions and follow up : 1. Return to clinic if your symptoms should worsen or fail to improve within 72 hours. 2. The care provided in the urgent care was for acute problems only. 3. You should follow up with your primary care provider within 72 hours. 4. Fill and take all your medications as prescribed. 5. Make sure you are staying adequately hydrated. MAY FOLLOW-UP WITH A PROVIDER OF YOUR CHOICE, SUCH : 1. A PHYSICIAN OF YOUR CHOICE OR, IF YOU WISH TO FOLLOW-UP WITHIN THE [facility], MAY TRY THESE OPTIONS (CLINIC APPOINTMENTS AVAILABLE ON [id number] BASIS): 1. SCHEDULE AN APPOINTMENT ONLINE AT [facility] 2. OR CALL THE [facility] ACCESS [facility] AT OR 3. OR CALL YOUR [facility] PHYSICIAN'S OFFICE DIRECTLY IF YOU ARE ALREADY AN ESTABLISHED [facility] PATIENT. After hours care nurse access center available by calling [phone] 24 hours 7 days per week. Ines MACK [facility] EMER REGULATOR documented in this encounter Progress Notes Kalyani Soto MA - 03/26/2020 4:20 PM CST Daryn Alexandermayi Pierce. is a 49 year old male Chief Complaint Patient presents with Shortness of Breath Been here for samething before. Pt suffers from COPD and asthma. Pt states chest feels tight. started 3 days ago. Cough Exposure LAB Diarrhea Vitals: 03/26/20 1647 BP: 134/87 Pulse: 87 Resp: 20 Temp: 37.3 C (99.1 F) SpO2: 96% Weight: 163 lb (73.9 kg) Height: 5' 11" (1.803 m) [id number] - [place], [place] - [facility] [address] [facility], [facility] [employer] [facility] All Vitals taken, allergies and all medications reviewed, fall risk assessed. Pain level 0. Kalyani Soto MA 03/26/2020 4:52 PM Patient educated on plan of care for visit, swabbing technique, risks and benefits of test and length of time to receive results. Verbal consent obtained to perform test. [facility] Fact Sheet for Patients nCoV Diagnostic Panel dated 07/02/2019 provided. Bilate nares swabbed during COVID19 nasopharyngeal swab. Flu test ran rInes sigala FNP - 03/26/2020 4:20 PM CST Cc: Chief Complaint Patient presents with Shortness of Breath Been here for samething before. Pt suffers from COPD and asthma. Cough Exposure LAB Daryn Ramos Jr. is a 49 year old male presents with concern for cough and covid exposure that started about 3 days ago. He was diagnosed with COPD a few years ago. He's daily smoker with 33 pack yearsmoking history. He works at [employer]. He's been using albuterol with improvement in symptoms.Denies any chills, sob or body aches. Eating/drinking good. Possible covid exposure at work. URI Presenting symptoms: congestion, cough, fatigue, fever and rhinorrhea Presenting symptoms: no sore throat Congestion: Location: Nasal Interferes with sleep: no Interferes with eating/drinking: no Cough: Cough characteristics: Dry Severity: Mild Onset quality: Gradual Duration: 3 days Timing: Intermittent Progression: Unchanged Chronicity: New Fatigue: Severity: Mild Duration: 2 days Timing: Intermittent Progression: Unchanged Fever: Duration: 1 day Timing: Intermittent Temp source: Subjective Progression: Unchanged Rhinorrhea: Quality: Clear Severity: Mild Duration: 3 days Timing: Intermittent Progression: Unchanged Severity: Mild Onset quality: Gradual Duration: 3 days Timing: Intermittent Progression: Unchanged Chronicity: New Relieved by: Inhaler Worsened by: Nothing Associated symptoms: sneezing Associated symptoms: no arthralgias, no headaches, no myalgias, no neck pain, no sinus pain, no swollen glands and no wheezing Risk factors: chronic respiratory disease and sick contacts Risk factors: no immunosuppression, no recent illness and no recent travel Allergies Daryn is allergic to cat dander; dog dander; cat's claw (uncaria tomentosa); eggshell membrane; andpenicillins. Medications Outpatient Medications Prior to Visit Medication Sig Dispense Refill famotidine 20 mg tablet Take 20 mg [...] No facility-administered medications prior to visit. Histories History reviewed. No pertinent past medical history. History reviewed. No pertinent surgical history. Social History Socioeconomic History Marital status: Single [...] Use Smoking status: Current Every Day Smoker Packs/day: 0.50 Years: 33.00 Pack years: 16.50 Types: Cigarettes Start date: 1986 Smokeless tobacco: Never Used Substance and Sexual Activity Alcohol use: Not on file Drug use: Not on file Sexual activity: Not on file Lifestyle Physical activity Days per week: Not on file Minutes per session: Not on file Stress: Not on file Relationships Social connections Talks on phone: Not on file Gets together: Not on file Attends caodaism service: Not on file Active member of [...] file Social History Narrative Not on file History reviewed. No pertinent family history. Review of Systems Constitutional: Positive for fatigue and fever. Negative for activity change, appetite change and chills. HENT: Positive for congestion, rhinorrhea and sneezing. Negative for sinus pain and sore throat. Respiratory: Positive for cough. Negative for chest tightness, shortness of breath, wheezing and stridor. Gastrointestinal: Negative for diarrhea, nausea and vomiting. Musculoskeletal: Negative for arthralgias, myalgias and neck pain. Skin: Negative for rash. Neurological: Negative for dizziness, weakness and headaches. All other systems reviewed and are negative. Vital Signs BP 134/87 | Pulse 87 | Temp 37.3 C (99.1 F) | Resp 20 | Ht 5' 11" (1.803 m) | Wt 163 lb (73.9 kg) | SpO2 96% | BMI 22.73 kg/m Physical Exam Vitals signs and nursing note reviewed. Constitutional: Appearance: He is well-developed. HENT: Head: Normocephalic and atraumatic. Right Ear: Tympanic membrane, ear canal and external ear normal. Left Ear: Tympanic membrane, ear canal and external ear normal. Nose: Congestion and rhinorrhea present. No nasal tenderness. Mouth/Throat: Lips: [place]. Mouth: Mucous membranes are moist. Pharynx: Oropharynx is clear. Tonsils: 1+ on the right. 1+ on the left. Eyes: Conjunctiva/sclera: Conjunctivae normal. Neck: Musculoskeletal: Normal range of motion and neck supple. Cardiovascular: Rate and Rhythm: Normal rate and regular rhythm. Heart sounds: Normal heart sounds. No murmur. No friction rub. No gallop. Pulmonary: Effort: Pulmonary effort is normal. No respiratory distress. Breath sounds: Normal breath sounds. No decreased breath sounds, wheezing, rhonchi or rales. Musculoskeletal: Normal range of motion. Skin: General: Skin is warm and dry. Findings: No rash. Neurological: Mental Status: He is alert and oriented to person, place, and time. Psychiatric: Behavior: Behavior normal. Assessment/Plan Daryn Ramos Jr. is a 49 year old male presents with concern for cough, sob and covid exposure. 1. Viral illness 2. Fever, unspecified fever cause - POCT FLU A AND B (MOLECULAR) - NEGATIVE - benzonatate (TESSALON PERLES) 100 mg capsule; Take 1 capsule by mouth 3 (three) times daily as needed for Cough. Dispense: 30 capsule; Refill: 0 Viral Illness -- No focus suspicious for a bacterial process. Educated patient that viral illness usually last 7-10 days and resolve with symptomatic treatment. Based on onset of symptoms, exam findings, and negative flu test this is likely a viral illness. - counseled patient about at home care: Use Advil Cold/Sinus as needed for fever and/or congestion Use Robitussin DM or Mucinex DM to help with cough Tylenol and Ibuprofen as needed for pain and fever Rest Raise head of bed Increase fluids -HYDRATION WITH CLEAR LIQUIDS Vitamin C Warm salt water gargles or CEPACOL sprays for sore throat. Breath humidified air (steam) SIPPING WARM DRINKS may help. Warm Compresses (if sinus pressure or pain). HAND HYGIENE (with alcohol gels or hand washing) Advised to take Tylenol or Ibuprofen as per label recommendation as needed for pain or fever Honey 10mL (2 teaspoons) has been shown to relieve cough at bedtime. Dark Chocolate helps with cough (xanthenes) Avoidance of cigarette smoke, alcoholic drinks, diving into deep water and air travel is useful. Irrigate your nose with normal saline moisture spray 2 or 3 times a day. You may use a spray, squeeze bottle, or nasal pot. ? Nasal Congestion (Stopped Up): Oxymetazoline HCl (Afrin, 4-Way, & more) 0.05 % nasal spray, 1 spray each nostril at bedtime. Limit to 5 nights. If use twice a day then limit to 3 days. - Advised to follow up with PCP, return to Urgent Care, or go to the nearest Emergency Department sooner for any new, worsening, persistent, or concerning symptoms. 3. Exposure to SARS-associated coronavirus - COVID-19 (MOLECULAR TESTING NUCLEIC ACID AMPLIFICATION) - Quarantine until your COVID results are [...] not go into the clinic. Call first. Educated on the following at home care: - Discussed likely viral diagnosis and treatment plan with pt. - pt advised on frequent effective handwashing - pt advised to increase fluid intake , stay hydrated and get plenty of rest. - advised to have the pt take OTC to treat symptoms. - Pt advised to administer Tylenol as per label recommendation as needed for pain or fever - Cover mouth when coughing, wear mask - Stay in your own bedroom and use a separate bathroom - Keep at least 6 feet from you and others - Avoid sharing personal household items, dishes, glasses, cups, towels -Clean high traffic/touch areas daily. These include but not limited to: doorknobs, refrigerator/cabinet handles, phones, keyboards, tablets, light switches. - AVS and Written/handout materials appropriate to problem and teaching provided. - advised to go to the nearest Emergency Department sooner for any new, worsening, persistent, or concerning symptoms - Patient verbalized understanding of all instructions - Follow-up with PCP as needed, if no improvement EDUCATION: Handouts given: Patient educated on plan of care for visit, swabbing technique,risks and benefits of test and lengthof time to receive results. Verbal consent obtained to perform test. CDC Fact Sheet for patients nCoV Diagnostic Panel dated 07/02/2019 provided. "What to do if you are sick with COVID-19" CDC information guide reviewed with the patient and handout given to patient Education given to self quarantine until results are back. Will notify patient with results. Patient states understanding and all questions answered. Plan of care, goals and medications discussed with patient. Patient voices understanding. Barriers to care: none Ability to manage care: good FOLLOW UP: Pt advised to call 911 or go to the nearest Emergency Department sooner for any worsening, persistent, or concerning symptoms ER precautions given Plan of care, desired health behaviors, goals, and medication discussed with patient. Education resources provided and reviewed with AVS. Patient/guardian/family verbalized understanding & agrees to plan of care. Urgent Care precautions and follow up : 1. Return to clinic if your symptoms should worsen or fail to improve within 72 hours. 2. The care provided in the urgent care was for acute problems only. 3. You should follow up with your primary care provider within 72 hours. 4. Fill and take all your medications as prescribed. 5. Make sure you are staying adequately hydrated. MAY FOLLOW-UP WITH A PROVIDER OF YOUR CHOICE, SUCH : 1. A PHYSICIAN OF YOUR CHOICE OR, IF YOU WISH TO FOLLOW-UP WITHIN THE [facility], MAY TRY THESE OPTIONS (CLINIC APPOINTMENTS AVAILABLE ON [id number] BASIS): 1. SCHEDULE AN APPOINTMENT ONLINE AT [facility] 2. OR CALL THE [facility] AT OR 3. OR CALL YOUR [facility] PHYSICIAN'S OFFICE DIRECTLY IF YOU ARE ALREADY AN ESTABLISHED [facility] PATIENT. After hours care nurse access center available by calling [phone] 24 hours 7 days per week. Ines MACK [facility] documented in this encounter Plan of Treatment Date Type Specialty Care Team Description 07/26/2020 Office Visit Pulmonary Disease Juanita Huizar DO [address] [place] [phone] 07/30/2020 Appointment Radiology Juanita Huizar DO [address] [place] [phone] Name Type Priority Associated Diagnoses Order S chedule COVID-19 (MOLECULAR LAB Routine Exposure to Expected : 03/26/2020, TESTING SARS-associated Expires: 021 NUCLEIC ACID coronavirus AMPLIFICATION) Health Maintenance Due Date Last Done Comments [...] 01/31/2021 02/01/2020 documented as of this encounter Procedures Procedure Name Priority Date/Time Associated Diagnosis Comme nts POCT FLU A AND B STAT 03/26/2020 Fever, unspecified Resul ts for this (MOLECULAR) fever cause procedure are i n the results section . documented in this encounter Results POCT FLU A AND B (MOLECULAR) (03/26/2020) Pathologist Sig nature POCT INFLUENZA A neg Negative - Negative POCT INFLUENZA B neg Negative - Negative Specimen Swab Narrative Performed At accurate development and interpretation of all internal controls documented in this encounter Visit Diagnoses Diagnosis Viral illness - Primary Unspecified viral infection, in conditio ns classified elsewhere and of unspecified site Fever, unspecified fever cause Exposure to SARS-associated coronavirus documented in this encounter Additional Health Concerns Infection Onset Date Last Indicated Resolved Time COVID-19 Rule Out 03/26/2020 03/26/2020 documented as of this encounter documented as of this encounter
[2020-03-26] MEDS ORDERED: AZITHROMYCIN 250 MG TAB ONE (21:13)
[2020-03-26] MEDS ORDERED: dexAMETHasone 10 MG/ML VIAL ONE (21:13)
--- NOTE | 2020-03-27 11:43 | EKG ---
Test Date: 2020-03-26 Test Time: 20:49:11 Emergency Vehicle Driver: SARBJIT MEASUREMENT RESULTS: Intervals: Rate: 90 UT: 164 QRSD: 86 QT: 342 QTc: 418 [place]: P: 61 UT: 164 QRS: 58 T: 51 INTERPRETIVE STATEMENTS: Normal sinus rhythm Normal ECG Compared to ECG 12/02/2019 17:25:24 No significant changes Electronically Signed On 03-27-20 11:40:44 FIXED INCOME DIRECTOR by Enrique Rothman
== END 2020-03-26 21:20 | disposition home or self-care (01) ==
LOC: ER 20:39
DX: J20.9 Acute bronchitis, unspecified (principal); F17.210 Nicotine dependence, cigarettes, uncomplicated; Z88.0 Allergy status to penicillin; Z91.012 Allergy to eggs; Z91.018 Allergy to other foods
CPT/HCPCS: 93005; 96372; 99284; J1100

== ENCOUNTER 2020-05-09 08:44 | Emergency (ER) | payer OTHER, SELFPAY ==
--- OUTSIDE RECORDS SUMMARY | 2020-05-09 09:05 | XMS REPORT | Continuity of Care Document ---
:1970 Author Organization [facility] t Address [address] [place] [address] Care Team Providers Name Role Phone Asked, Pcp Primary Care Physician Unavailable Provider, Urgent Care Attending Clinician Unavailable Gaye PULIDO Attending Clinician Ivan Louis MD Attending Clinician Steve PULIDO Attending Clinician Melany Winchester MD Attending Clinician Kenna CLARKE, Daphnie Ayala Attending Clinician [phone] Payers Payer Name Policy Type Policy Effective Date Expiration Date Sour ce Number COMMERCIAL [id number] 2019 [place] MISCMISC 00:00:00 [facility] COMMERCIALxxxxx7 77-Pre sentCommercial Problems This patient has no known problems. Allergies, Adverse Reactions, Alerts Allergy Allergy Status Severity Reaction(s) Onset Inactive Treating Comm ents Source Name Type Date Date Clinician Cat Propensi Active Shortness Of [place] Dander ty to Breath 6-05 [facility] adverse 00:00: st reaction 00 s to drug Cat's Propensi Active [place] Claw ty to 6-05 [facility] (Uncaria adverse [...] Date Quantity Comments Source Sex Assigned At [facility] ethodist Cigarettes smoked 2019-12-25 2019-12-25 [place] [facility] current (pack per 00:00:00 00:00:00 day) - Reported Cigarette 2019-12-25 2019-12-25 [place] Method ist pack-years 00:00:00 00:00:00 Tobacco use and 2019-12-25 2019-12-25 Current user [place] [facility] exposure 00:00:00 00:00:00 Alcohol intake 2019-12-25 2019-12-25 Current [facility] thodist 00:00:00 00:00:00 non-drinker of alcohol (finding) Alcohol Comment 2017-09-21 2017-09-21 former [facility] ethodist 00:00:00 00:00:00 Smoking Status Start Date Stop Date Source Current every day smoker 2019-12-25 00:00:00 Sonali Kwonist Medications Ordered Filled Start Stop Current Ordering Indication Dosage Frequency Signature Comments Components Source Medication Medication Date Date Medication? Clinician (SIG) Name Name predniSONE 40mg QD Take 4 [place] (DELTASONE) 09-30 06-19 tablets Meth jayshree 10 mg 00:00: 23:59 [...] blood 2019-12-25 14:25:00 125 mm[Hg] [place] [facility] pressure Diastolic blood 2019-12-25 14:25:00 86 mm[Hg] [place] [facility] pressure Heart rate 2019-12-25 14:25:00 79 /min [place] [facility] Body temperature 2019-12-25 14:25:00 36.56 Ariadna Tutu Lucas Respiratory rate 2019-12-25 14:25:00 18 /min [place] Lucas Body height 2019-12-25 14:25:00 180.3 cm Ede Lucas Body weight 2019-12-25 14:25:00 72.576 kg Ede Lucas BMI 2019-12-25 14:25:00 22.32 kg/m2 Ede Lucas Oxygen saturation in 2019-12-25 14:25:00 99 /min Ede Lucas Arterial blood by Pulse oximetry Procedures Procedure Date / Time Performed Performing Clinician Sourc e XR CHEST 2 VW 2019-10-01 17:54:33 Mantalanna, Seth Ede Meth odist CT ABDOMEN PELVIS W 2019-07-31 19:37:49 Cameron Winchester CONTRAST HC COMPLETE BLD COUNT 2019-07-31 18:40:00 Cameron Winchester W/AUTO DIFF COMPREHENSIVE METABOLIC 2019-07-31 18:40:00 Cameron Winchester PANEL AMYLASE LEVEL 2019-07-31 18:40:00 Cameron Winchester In thodist ESTIMATED GFR 2019-07-31 18:40:00 Cameron Winchester In thodist Plan of Care Planned Activity Planned Date Details Comments Source Future Scheduled 2019-11-18 INFLUENZA VACCINE [place] [facility] Test 00:00:00 [code = INFLUENZA VACCINE] Future Scheduled 2018 COLONOSCOPY SCREENING [employer] slade [facility] Test 00:00:00 [code = COLONOSCOPY SCREENING] Future Scheduled 2018 SHINGLES VACCINES [place] [facility] 00:00:00 (#1) [code = SHINGLES VACCINES (#1)] Future Scheduled 1984 COVID-19 VACCINE (1 [place] [facility] Test 00:00:00 of 2) [code = COVID-19 VACCINE (1 of 2)] Encounters Start End Encounter Admission Attending Care Care Encounter Source Date/Time Date/Time Type Type Clinicians Facility Department ID 2020-03-26 2020-03-26 Urgent Provider, [facility] [id number] 16:08:35 17:21:19 Care [facility] [id number] Care [place] [id number] Professio [id number] nal 044 Office Building One 2020-02-01 2020-02-01 Office Gaye MACITLALY [id number] 08:30:53 09:30:53 Visit Juanita Eaton [id number] [place] [id number] sergeyjaymie [id number] nal 085 Building 2019-12-25 2019-12-25 Emergency SCHE[place], [place] [address] [id number] [place] 00:00:00 00:00:00 RAYMUNDO [address] 2019-10-01 2019-10-01 Emergency MANTENA, [facility] [id number] [place] 00:00:00 00:00:00 SETH [address] 2019-07-31 2019-07-31 Emergency KENNA, [place] [address] [id number] [place] 00:00:00 00:00:00 BETTY [address] Results Test Description Test Time Test Comments Results Result [facility] e Comments XR Chest 2 Vw 2019-09-18 [facility] [address] 17:55:23 - 10/01/2019 5:58 PM CDTEXAMINATION: XR CHEST 2 VWCLINICAL HISTORY: sobCOMPARISON: To previous study from 09/21/2017IMPRESSION:The cardiomediastinal silhouette is normal in appearance.The lungs are clear. There is no evidence of consolidation, congestion, or pneumothorax.A pleural effusion is not present.Visualized skeletal structures demonstrate no definite abnormality.The lungs are severely hyperinflated consistent with emphysematous changes.[facility]-[id number] Comprehensive metabolic panel 2019-07-31 22:31:29 Test Item Value Reference Range Interpretation Comme nts Sodium (test code = 2951-2) 137 128- 145 mEq/L Potassium (test code = 2823-3) 3.8 3.6- 5.1 mEq/L CO2 (test code = 2027-9) 28 18- 33 mEq/L Chloride (test code = 2075-0) 103 98- 108 mEq/L Glucose (test code = 2345-7) 101 mg/dL 73-118 Calcium (test code = 95530-1) 9.6 mg/dL 8-10.3 BUN (test code = [...] g/dL 6.4-8.1 Anion gap (test code = 66461-8) 6@ANIO 7- 15 mEq/L L A/G ratio (test code = 1759-0) 1.7 0.7-3.8 Lab Interpretation (test code = 93026-6) Abnormal [place] MethodistAmylase [id number] 22:31:29 Test Item Value Reference Range Interpretation Comments Amylase (test code = 1798-8) 42 U/L 14-97 [place] MethodistCBC with platelet and [id number] 22:31:29 Test Item Value Reference Range Interpretation Comments WBC (test code = 82869-5) 11.31 4.50- 11.00 k/uL H RBC (test code = 59006-5) 4.95 m/uL 4.4-6 HGB (test code = 718-7) 15.6 g/dL 14-18 HCT (test code = 4544-3) 47.1 % 41-51 MCV (test code = 787-2) 95.2 fL 82-100 MCH (test code = 785-6) 31.5 pg 27-34 MCHC (test code = 786-4) 33.1 g/dL 31-37 RDW - SD (test code = 20420-0) 44.5 fL 37-55 MPV (test code = 58889-4) 10.6 fL 8.8-13.2 Platelet count (test code = 227 150- 400 k/uL 59556-3) Neutrophils (test code = 99975-6) 63.3 % 39-69 Lymphocytes (test code = 10193-7) 28.1 % 25-45 Monocytes (test code = 13695-8) 8.0 % 0-10 Eosinophils (test code = 09449-7) 0.4 % 0-5 Basophils (test code = 61374-1) 0.2 % 0-1 Lab Interpretation (test code = Abnormal 96120-6) Ede MethodistEstimated [id number] 22:31:29 Test Item Value Reference Range Interpretation Comments Estimated GFR (test >=90 mL/min/1.73 m2 Abida avilezINNOBI Units code = 5488) InterpretationG 1 >=90 Normal or highG2 60-89 Mildly fvnuiynvsB6w 45-59 Mildly to mode rately prvedvlkwH4j 30-44 Moderately to severely decreasedG4 15-29 Severely decre asedG5 <15 Kidn ey failureThe eGFR was calculated efrain g the Chronic Kidney Disease Epidemiology Co llaboration (CKD-EPI) equat ion. Interpretation is based on recommendations of the National Kidney Foundation-Kidn ey Disease Outcomes Qualit y Initiative (NKF-KDOQI) pub lished in 2014. [place] MethodistCT Abdomen Pelvis W [id number] 19:50:40Hm Interface, Radiology Results 07/31/2019 7:53 PM CDTEXAMINATION: CT ABDOMEN PELVIS W CONTRASTCLINICAL HISTORY: 48 yearsMale Abdominal pain rectal bleedingTECHNIQUE: Multidetector computed axial tomography of the abdomen and pelvis was preformed after the uncomplicated intravenous administration of IV contrast utilizing automated exposure control and/or iterative reconstruction techniques to radiation dose. Coronal and sagittal reformatted images created at the CT scanner vascular technologist sonographer were also submitted for interpretation.COMPARISON: None available.IMPRESSION:LUNG [...] clinical correlation recommended. 2.Other findings as above. [facility]-[id number] [facility]
--- OUTSIDE RECORDS SUMMARY | 2020-05-09 09:05 | XMS REPORT | Clinical Summary ---
:1970 Author Organization [facility] Address [address] [place] [address] Care Team Providers Name Role Phone Asked, [...] Dx) Daphnie Ayala MD 07/31/2019 Travel after 05/09/2019 Surgical History Surgery Date Site/Laterality Comments COLONOSCOPY [...] Health Maintenance Due Date Last Done Comments COVID-19 VACCINE (1 of 2) 1984 COLONOSCOPY SCREENING 2018 SHINGLES VACCINES (#1) 2018 [...] are i n the results section. after 05/09/2019 Results XR Chest 2 Vw (10/01/2019 5:54 [...] severely hyperinflated consistent with e mphysematous changes. [facility]-[id number] Procedure Note Hm Interface, Radiology Results Incoming [...] severely hyperinflated con sistent with emphysematous changes. [facility]-[id number] Performing Organization Address City/State/ZIP Code Phon e Number [facility] [address] [place] [address] CT Abdomen Pelvis W Contrast (07/31/2019 7:37 PM CDT) Specimen Narrative Performed At EXAMINATION: CT ABDOMEN PELVIS W CONTR AST [facility] CLINICAL HISTORY: 48 yearsMale Abdominal pain rectal bleeding TECHNIQUE: Multidetector computed axial tomography of the abdomen and pelvis was preformed after the uncomplicated intraveno us administration of IV contrast utilizing automated exposure control an d/or iterative reconstruction techniques to radiation dose. Coronal and sagittal reformatted image s created at the CT scanner chemistry technologist were also sub mitted for interpretation. [...] clinical correlation recommended. 2.Other findings as above. [facility]-[id number] Procedure Note [facility], Radiology Results Incoming - 07/31/2019 7:53 PM [...] ormatted images created at the CT scanner chemistry technologist were also submitted for interpretation. COMPARISON: [...] clinical correlation recommended. 2.Other findings as above. [facility]-[id number] Performing Organization Address City/State/ZIP Code Phon e Number [facility] [address] [place] [address] Estimated GFR (07/31/2019 6:40 PM CDT) Estimated GFR >=90 mL/min/1.73 [facility] Comment: [address] [facility] Units Interpretation [facility] G1 >=90 [...] DEPARTMENT OF PATHOLOGY AND [address] [place] [address] GENOMIC MEDICINE, [facility] [address] CBC with platelet and differential (07/31/2019 6:40 PM CDT) Pathologist Sig nature WBC 11.31 (H) 4.50 - 11.00 k/uL [facility] RBC 4.95 4.40 - 6.00 m/uL [facility] HGB 15.6 14.0 - 18.0 g/dL [facility] HCT 47.1 41.0 - 51.0 % [facility] MCV 95.2 82.0 - 100.0 fL [facility] MCH 31.5 27.0 - 34.0 pg [facility] MCHC 33.1 31.0 - 37.0 g/dL [facility] RDW - SD 44.5 37.0 - 55.0 fL [facility] MPV 10.6 8.8 - 13.2 fL [facility] Platelet count 227 150 - 400 k/uL [facility] Neutrophils 63.3 39.0 - 69.0 % [facility] Lymphocytes 28.1 25.0 - 45.0 % [facility] Monocytes 8.0 0.0 - 10.0 % [facility] Eosinophils 0.4 0.0 - 5.0 % [facility] Basophils 0.2 0.0 - 1.0 % [facility] Specimen Blood Performing Organization Address City/[facility] Phon e Number DEPARTMENT OF PATHOLOGY AND [address] [place] [address] [place] [address] Amylase level (07/31/2019 6:40 PM CDT) Pathologist Sig nature Amylase 42 14 - 97 U/L [facility] Specimen Blood Performing Organization Address City/State/ZIP Code Phon e Number DEPARTMENT OF PATHOLOGY AND [address] [place] [address] [place] [address] Comprehensive metabolic panel (07/31/2019 6:40 PM CDT) Sodium 137 128 - 145 [facility] mEq/L [facility] Potassium 3.8 3.6 - 5.1 [facility] mEq/L [facility] CO2 28 18 - 33 mEq/L [facility] Chloride 103 98 - 108 mEq/L [facility] Glucose 101 73 - 118 mg/dL [facility] Calcium 9.6 8.0 - 10.3 [facility] mg/dL [facility] BUN 11 7 - 22 mg/dL [facility] Creatinine 0.9 0.7 - 1.2 [facility] mg/dL [facility] Alkaline phosphatase 61 53 - 128 U/L [facility] ALT 25 10 - 47 U/L [facility] AST 21 11 - 38 U/L [facility] Total bilirubin 0.7 0.2 - 1.6 [facility] mg/dL [facility] Albumin 4.5 3.3 - 5.5 g/dL [facility] Protein 7.1 6.4 - 8.1 g/dL [facility] Anion gap 6@ANIO (L) 7 - 15 mEq/L [facility] A/G ratio 1.7 0.7 - 3.8 [facility] Specimen Blood Performing Organization Address City/[facility]/ZIP Code Phon e Number DEPARTMENT OF PATHOLOGY AND [address] [facility]. [address] [place] [address] GENOMIC MEDICINE, [facility] [address] after 05/09/2019 Insurance Payer Benefit Plan / Subscriber ID Effective Phone Address T ype Group Dates COMMERCIAL MISC MISC COMMERCIAL [id number] 2019-Pres Commercial ent Advance Directives For more information, please contact: [phone] Type Date Recorded Patient Chart Clerk Explanati on Advance Directives, Living Will 09/21/2017 5:25 PM and Medical Power of Lining Presser
[2020-05-09 10:35] LABS: SARS-COV-2 RT PCR NEGATIVE (NEGATIVE)
--- NOTE | 2020-05-09 10:40 | ER ---
Nurse's Notes [facility] Name: Daryn Ramos Jr Age: 49 yrs Sex: Male : 1970 Arrival Date: 05/09/2020 Time: 08:49 Bed 15 Private MD: Diagnosis: Acute bronchitis;Chronic obstructive pulmonary disease with (acute) exacerbation Presentation: 05/09 09:05 Chief complaint: Patient states: chest congestion, chills, fatigue x 3 days. Took his sv nebs last night with some relief. Coronavirus screen: Client denies travel out of the [place] in the last 14 days. At this time, the client does not indicate any symptoms associated with coronavirus-19. Ebola Screen: No symptoms or risks identified at this time. Initial Sepsis Screen: Does the patient meet any 2 criteria? No. Patient's initial sepsis screen is negative. Does the patient have a suspected source of infection? No. Patient's initial sepsis screen is negative. Risk Assessment: Do you want to hurt yourself or someone else? Patient reports no desire to harm self or others. Onset of symptoms was May 06, 2020. 09:05 Method Of Arrival: Ambulatory sv 09:05 Acuity: SALEEM 3 sv Triage Assessment: 09:05 General: Appears in no apparent distress. comfortable, well developed, Behavior is sv calm, cooperative, appropriate for age. Pain: Denies pain. Neuro: Level of Consciousness is awake, alert, obeys commands, Oriented to person, place, time, situation, Moves all extremities. Full function Gait is steady, Speech is normal. Respiratory: Airway is patent Respiratory effort is even, unlabored, Respiratory pattern is regular, symmetrical. Derm: Skin is pink, warm \T\ dry. Musculoskeletal: Range of motion: intact in all extremities. Historical: - Allergies: 09:07 EGG/POULTRY; sv 09:07 PENICILLINS; sv - PMHx: 09:07 Anxiety; Asthma; COPD; sv - PSHx: 09:07 None; sv - Immunization history:: Adult Immunizations up to date. - Social history:: Smoking status: Patient reports the use of cigarette tobacco products, smokes one pack cigarettes per day. Screenin:07 Abuse screen: Denies threats or abuse. Denies injuries from another. Nutritional sv screening: No deficits noted. Tuberculosis screening: No symptoms or risk factors identified. Fall Risk None identified. Assessment: 10:48 Reassessment: Patient appears in no apparent distress at this time. No changes from previously documented assessment. Patient and/or family updated on plan of care and expected duration. Pain level reassessed. Patient is alert, oriented x 3, equal unlabored respirations, skin warm/dry/pink. Vital Signs: 09:05 BP 118 / 85; Pulse 73; Resp 20; Temp 97.6(O); Pulse Ox 99% ; Weight 74.84 kg; Height 5 sv ft. 11 in. (180.34 cm); Pain 0/10; 10:11 BP 111 / 88; Pulse 81; Resp 16; Pulse Ox 99% ; sv 09:05 Body Mass Index 23.01 (74.84 kg, 180.34 cm) sv ED Course: 08:49 Patient arrived in ED. mr 09:02 Celi Ibarra, RN is Primary Nurse. sv 09:07 Triage completed. sv 09:07 Arm band placed on. sv 09:07 Patient has correct armband on for positive identification. Bed in low position. Call sv light in reach. Pulse ox on. NIBP on. Door closed. Head of bed elevated. 09:10 Michael Chen PA is PHCP. jr8 09:10 Mac Gan MD is Attending Physician. jr8 09:12 Nurse Practitioner and/or Physician Dental Assistant Teacher to see patient. sv 09:35 Awaiting for x-ray. sv 09:51 X-ray(s) taken. sv 10:12 XRAY Chest (1 view) In Process Unspecified. EDMS 10:12 X-ray completed. Portable x-ray completed in exam room. Patient tolerated procedure mh1 well. 10:48 No provider procedures requiring assistance completed. Patient did not have IV access sv during this emergency room visit. Administered Medications: No medications were administered Outcome: 10:39 Discharge ordered by . jr8 10:48 Discharged to home ambulatory. sv 10:48 Condition: stable 10:48 Discharge instructions given to patient, Instructed on discharge instructions, follow up and referral plans. medication usage, Demonstrated understanding of instructions, follow-up care, medications, Prescriptions given X 3. 10:48 Patient left the ED. sv Signatures: Dispatcher [employer] EDIL Celi IbarraFILIBERTO RN, Mary Stephanie Osuna mh1 Michael Chen PA PA jr8 Corrections: (The following items were deleted from the chart) 10:48 10:11 Pulse 81bpm; Resp 16bpm; Pulse Ox 99%; sv sv
--- NOTE | 2020-05-09 10:40 | EDPHYS ---
Physician Documentation [facility] Name: Daryn Ramos Jr Age: 49 yrs Sex: Male : 1970 Arrival Date: 05/09/2020 Time: 08:49 Bed 15 Private MD: ED Physician Mac Gan HPI: 05/09 09:59 This 49 yrs old Male presents to ER via Ambulatory with complaints of Asthma jr8 Exacerbation. 09:59 The patient presents to the emergency department with wheezing, Current therapy: jr8 albuterol nebs. Onset: The symptoms/episode began/occurred gradually, 2 day(s) ago. Modifying factors: The symptoms are alleviated by nothing, the symptoms are aggravated by cold weather, exertion. Associated signs and symptoms: Pertinent positives: body aches, fatigue, cough, dyspnea. Severity of symptoms: At their worst the symptoms were moderate in the emergency department the symptoms have improved mildly. The patient has experienced similar episodes in the past, a few times. The patient has not recently seen a physician. History of COPD/Asthma. Stated that he has not been feeling well the past couple of days. Has had shortness of breath and cough that has caused mild chest tightness. Last time he had this it was bronchitis. COVID screen mar 26 negative at that time . Historical: - Allergies: 09:07 EGG/POULTRY; sv 09:07 PENICILLINS; sv - PMHx: 09:07 Anxiety; Asthma; COPD; sv - PSHx: 09:07 None; sv - Immunization history:: Adult Immunizations up to date. - Social history:: Smoking status: Patient reports the use of cigarette tobacco products, smokes one pack cigarettes per day. ROS: 09:59 Eyes: Negative for injury, pain, redness, and discharge, ENT: Negative for injury, jr8 pain, and discharge, Neck: Negative for injury, pain, and swelling, Cardiovascular: Negative for chest pain, palpitations, and edema, Abdomen/GI: Negative for abdominal pain, nausea, vomiting, diarrhea, and constipation, Back: Negative for injury and pain, MS/Extremity: Negative for injury and deformity, Skin: Negative for injury, rash, and discoloration, Neuro: Negative for headache, weakness, numbness, tingling, and seizure. 09:59 Constitutional: Positive for body aches, fatigue. 09:59 Respiratory: Positive for cough, dyspnea on exertion, shortness of breath, wheezing. Exam: 09:59 Eyes: Pupils equal round and reactive to light, extra-ocular motions intact. Lids and jr8 lashes normal. Conjunctiva and sclera are non-icteric and not injected. Cornea within normal limits. Periorbital areas with no swelling, redness, or edema. ENT: Nares patent. No nasal discharge, no septal abnormalities noted. Tympanic membranes are normal and external auditory canals are clear. Oropharynx with no redness, swelling, or masses, exudates, or evidence of obstruction, uvula midline. Mucous membranes moist. Neck: Trachea midline, no thyromegaly or masses palpated, and no cervical lymphadenopathy. Supple, full range of motion without nuchal rigidity, or vertebral point tenderness. No Meningismus. Cardiovascular: Regular rate and rhythm with a normal S1 and S2. No gallops, murmurs, or rubs. Normal PMI, no JVD. No pulse deficits. Respiratory: Lungs have equal breath sounds bilaterally, clear to auscultation and percussion. No rales, rhonchi or wheezes noted. No increased work of breathing, no retractions or nasal flaring. Abdomen/GI: Soft, non-tender, with normal bowel sounds. No distension or tympany. No guarding or rebound. No evidence of tenderness throughout. Back: No spinal tenderness. No costovertebral tenderness. Full range of motion. Skin: Warm, dry with normal turgor. Normal color with no rashes, no lesions, and no evidence of cellulitis. MS/ Extremity: Pulses equal, no cyanosis. Neurovascular intact. Full, normal range of motion. Neuro: Awake and alert, GCS 15, oriented to person, place, time, and situation. Cranial nerves II-XII grossly intact. Motor strength 5/5 in all extremities. Sensory grossly intact. Cerebellar exam normal. Normal gait. Vital Signs: 09:05 BP 118 / 85; Pulse 73; Resp 20; Temp 97.6(O); Pulse Ox 99% ; Weight 74.84 kg; Height 5 sv ft. 11 in. (180.34 cm); Pain 0/10; 10:11 BP 111 / 88; Pulse 81; Resp 16; Pulse Ox 99% ; sv 09:05 Body Mass Index 23.01 (74.84 kg, 180.34 cm) sv MDM: 09:10 Patient medically screened. jr8 10:38 Data reviewed: vital signs, nurses notes, lab test result(s), radiologic studies, plain jr8 films. Data interpreted: Pulse oximetry: on room air is 99 %. Interpretation: normal. Counseling: I had a detailed discussion with the patient and/or guardian regarding: the historical points, exam findings, and any diagnostic results supporting the discharge/admit diagnosis, lab results, radiology results, the need for outpatient follow up, a family practitioner, to return to the emergency department if symptoms worsen or persist or if there are any questions or concerns that arise at home. 05/09 09:19 Order name: XRAY Chest (1 view) 8 05/09 10:35 Order name: COVID-19/FLU A+B; Complete Time: 10:38 EDMS Administered Medications: No medications were administered Disposition: 15:23 Co-signature as Attending Physician, Mac Gan MD I agree with the assessment and tw4 plan of care. Disposition: 05/09/20 10:39 Discharged to Home. Impression: Acute bronchitis, Chronic obstructive pulmonary disease with (acute) exacerbation. - Condition is Stable. - Discharge Instructions: Acute Bronchitis, Adult, Chronic Obstructive Pulmonary Disease. - Prescriptions for Albuterol Sulfate 2.5 mg /3 mL (0.083 %) Inhalation Solution for Nebulization - inhale 1 unit by NEBULIZATION route every 8 hours As needed; 1 box. Zithromax Z- Dexter 250 mg Oral Tablet - take 1 tablet by ORAL route as directed for 5 days Day 1 - take two (2) tablets one time. Day 2, 3, 4 , 5 take one (1) tablet once daily.; 6 tablet. Prednisone 20 mg Oral Tablet - take 2 tablet by ORAL route once daily for 5 days; 10 tablet. - Work release form, Medication Reconciliation Form, Thank You Letter, Antibiotic Education, Prescription Opioid Use form. - Follow up: Private Physician; When: 5 - 6 days; Reason: Recheck today's complaints, Continuance of care, Re-evaluation by your physician. - Problem is new. - Symptoms have improved. Signatures: Dispatcher [employer] EDMS Celi Ibarra RN RN Michael Kruger PA PA 8 Mac Gan MD MD tw4 Corrections: (The following items were deleted from the chart) 09:48 09:20 CORONAVIRUS+MR.LAB.BRZ ordered. EDMS EDMS 09:49 09:20 Influenza Screen (A \T\ B)+BA.LAB.BRZ ordered. EDAR EDMS 10:48 10:39 05/09/2020 10:39 Discharged to Home. Impression: Acute bronchitis; Chronic sv obstructive pulmonary disease with (acute) exacerbation. Condition is Stable. Forms are Medication Reconciliation Form, Thank You Letter, Antibiotic Education, Prescription Opioid Use. Follow up: Private Physician; When: 5 - 6 days; Reason: Recheck today's complaints, Continuance of care, Re-evaluation by your physician. Problem is new. Symptoms have improved. jr8
[2020-05-09 10:57] VITALS: TEMP 97.6; O2SAT 99
[2020-05-09 10:58] VITALS: BP 111/88
--- NOTE | 2020-05-09 11:16 | RAD REPORT ---
EXAM DESCRIPTION: RAD - Chest Single View - 05/09/2020 10:11 am CLINICAL HISTORY: Cough;Dyspnea COMPARISON: AP chest December 02, 2019 TECHNIQUE: AP portable chest image was obtained 05/09/2020 10:11 am . FINDINGS: Chronic interstitial lung disease is present similar to comparison. No focal mass or conso lidation. Heart and vasculature are normal. No measurable pleural effusion and no pneumothorax. No ac tolowa dee-ni' bony abnormality seen. No acute aortic findings suspected. IMPRESSION: No acute cardiopulmonary process. Chronic interstitial lung pattern is similar to the comparison study.
== END 2020-05-09 10:48 | disposition home or self-care (01) ==
LOC: ER 08:44
DX: J44.1 Chronic obstructive pulmonary disease with (acute) exacerbation (principal); J20.9 Acute bronchitis, unspecified; J44.0 Chronic obstructive pulmonary disease with (acute) lower respiratory infection; F17.210 Nicotine dependence, cigarettes, uncomplicated; Z20.822 Contact with and (suspected) exposure to COVID-19; Z88.0 Allergy status to penicillin; Z91.012 Allergy to eggs; Z91.018 Allergy to other foods
CPT/HCPCS: 0240U; 71045; 99283

== ENCOUNTER 2020-06-07 21:23 | Emergency (ER) | payer OTHER ==
--- OUTSIDE RECORDS SUMMARY | 2020-06-07 21:26 | XMS REPORT | Continuity of Care Document ---
:1970 Author Organization [facility] t Address [address] [place] [address] Care Team Providers Name Role Phone Asked, Pcp Primary Care Physician Unavailable Provider, Urgent Care Attending Clinician Unavailable Gaye PULIDO Attending Clinician Ivan Louis MD Attending Clinician Steve PULIDO Attending Clinician Melany Winchester MD Attending Clinician Kenna CLARKE, Daphnie Ayala Attending Clinician [phone] Payers Payer Name Policy Type Policy Effective Date Expiration Date Sour ce Number COMMERCIAL [id number] 2019 [place] MISCMISC 00:00:00 [employer] [id number] 77-Pre sentCommercial Problems This patient has no known problems. Allergies, Adverse Reactions, Alerts Allergy Allergy Status Severity Reaction(s) Onset Inactive Treating Comm ents Source Name Type Date Date Clinician Dog Propensi Active Shortness Of [place] ty to Breath 09-21 [facility] adverse 00:00: st reaction 00 s to drug Eggshell Propensi Active Unknown [place] Membrane ty to 09-21 [facility] adverse 00:00: st reaction 00 s to drug Penicill Propensi Active Rash [place] ins ty to 09-21 [facility] adverse 00:00: st reaction 00 s to drug Cat Propensi Active Shortness [place] D[place] ty to Breath 6-05 [facility] adverse 00:00: st reaction 00 s to drug Cat's Propensi Active Mera Claw ty to 6-05 [facility] (Uncar[place] adverse 00:00: st Toment[place] reaction 00 a) s to drug Social History Social Habit Start Date Stop Date Quantity Comments Source Sex Assigned At [facility] ethodist Cigarettes smoked 2019-12-25 2019-12-25 Mear [employer] current (pack per 00:00:00 00:00:00 day) - Reported Cigarette 2019-12-25 2019-12-25 [place] Method ist pack-years 00:00:00 00:00:00 Tobacco use and 2019-12-25 2019-12-25 Current user [place] [facility] exposure 00:00:00 00:00:00 Alcohol intake 2019-12-25 2019-12-25 Current [facility] thodist 00:00:00 00:00:00 non-drinker of alcohol (finding) Alcohol Comment 2017-09-21 2017-09-21 former [facility] ethodist 00:00:00 00:00:00 Smoking Status Start Date Stop Date Source Current every day smoker 2019-12-25 00:00:00 Sonali Lucas Medications Ordered Filled Start Stop Current Ordering [...] blood 2019-12-25 14:25:00 125 mm[Hg] [place] [facility] pressure Diastolic blood 2019-12-25 14:25:00 86 mm[Hg] [place] [employer] pressure Heart rate 2019-12-25 14:25:00 79 /min [place] [facility] Body temperature 2019-12-25 14:25:00 36.56 Ariadna Tutu [...] DIFF COMPREHENSIVE METABOLIC 2019-07-31 18:40:00 Cameron Winchester [employer] PANEL AMYLASE LEVEL 2019-07-31 18:40:00 Cameron Winchester In thodist ESTIMATED GFR 2019-07-31 18:40:00 Cameron Winchester In thodist Plan of Care Planned Activity Planned Date Details Comments Source Future Scheduled 2019-11-18 INFLUENZA VACCINE [place] [facility] Test 00:00:00 [code = INFLUENZA VACCINE] Future Scheduled 2018 COLONOSCOPY SCREENING [place] [facility] Test 00:00:00 [code = COLONOSCOPY SCREENING] Future Scheduled 2018 SHINGLES VACCINES [place] [facility] Test 00:00:00 (#1) [code = SHINGLES VACCINES (#1)] Future Scheduled 1986 Hepatitis C screening [place] [facility] Test 00:00:00 (procedure) [code = 756710359] Future Scheduled 1984 COVID-19 VACCINE (1 [place] [facility] Test 00:00:00 of 2) [code = COVID-19 VACCINE (1 of 2)] Encounters Start End Encounter Admission Attending Care Care Encounter Source Date/Time Date/Time Type Type Clinicians Facility Department ID 2020-03-26 2020-03-26 Urgent Provider, [facility] [id number] 16:08:35 17:21:19 Care [facility] [id number] Care Lead [id number] Professio [id number] nal 044 Office [address] One 2020-02-01 2020-02-01 Office STEFAN Huizar [id number] 08:30:53 09:30:53 Visit Juanita Eaton [id number] Beatrice [id number] Professio [id number] nal 085 [facility] 2019-12-25 2019-12-25 Emergency SCHEMIDT, [facility] [id number] [place] 00:00:00 00:00:00 RAYMUNDO [address] 2019-10-01 2019-10-01 Emergency ISRAENA, [facility] [id number] [place] 00:00:00 00:00:00 SETH [address] 2019-07-31 2019-07-31 Emergency KENNA, [facility]4 [id number] [place] 00:00:00 00:00:00 BETTY [address] Results Test Description Test Time Test Comments Results Result Sourc e Comments XR Chest 2 Vw 2019-09-18 [facility] Vic[facility] [address] 17:55:23 - 10/01/2019 5:58 PM CDTEXAMINATION: XR CHEST 2 VWCLINICAL HISTORY: sobCOMPARISON: To previous study from 09/21/2017IMPRESSION:The cardiomediastinal silhouette is normal in appearance.The lungs are clear. There is no evidence of consolidation, congestion, or pneumothorax.A pleural effusion is not present.Visualized skeletal structures demonstrate no definite abnormality.The lungs are severely hyperinflated consistent with emphysematous changes.[facility]-[id number] F Comprehensive metabolic panel 2019-07-31 22:31:29 Test Item Value Reference Range Interpretation Comme nts Sodium (test code = 2951-2) 137 See_Comment [Automated message] The system which generated this result transmitted ref erence range: 128 - 145 mEq/L . The reference range was not u sed to interpret this result as normal/abnormal. Potassium (test code = 2823-3) 3.8 See_Comment [Automated message] The system which generated this result transmitted ref erence range: 3.6 - 5.1 mEq/L . The reference range was not u sed to interpret this result as normal/abnormal. CO2 (test code = 2027-9) 28 See_Comment [A utomated message] The system which generated this result transmitted ref erence range: 18 - 33 mEq/L. The reference range was not used to interpret this result as micheline l/abnormal. Chloride (test code = 5-0) 103 See_Comment [Automated message] The system which generated this result transmitted ref erence range: 98 - 108 mEq/L. Th e reference range was not u sed to interpret this result as normal/abnormal. Glucose (test code = 2345-7) 101 mg/dL 73-118 Calcium (test code = 95157-3) 9.6 mg/dL 8-10.3 BUN (test code = 3094-0) 11 mg/dL 7-22 Creatinine (test code = 0.9 mg/dL 0.7-1.2 2160-0) Alkaline phosphatase (test 61 U/L 53-128 code = 6768-6) ALT (test code = 1742-6) 25 U/L 10-47 AST (test code = 1920-8) 21 U/L 11-38 Total bilirubin (test code = 0.7 mg/dL 0.2-1.6 1974-2) Albumin (test code = 1751-7) 4.5 g/dL 3.3-5.5 Protein (test code = 2885-2) 7.1 g/dL 6.4-8.1 Anion gap (test code = 6@ANIO See_Comment L [Aut omated message] The system 86785-6) which generated this result transmitted ref erence range: 7 - 15 mEq/L. The reference range was not used to interpret this result as micheline l/abnormal. A/G ratio (test code = 1759-0) 1.7 0.7-3.8 Lab Interpretation (test code Abnormal = 90714-9) Ede MethodistAmylase [id number] 22:31:29 Test Item Value Reference Range Interpretation Comments Amylase (test code = 1798-8) 42 U/L 14-97 Ede MethodistCBC with platelet and [id number] 22:31:29 Test Item Value Reference Range Interpretation Comments WBC (test code = 11.31 See_Comment H [Automated message] 61347-0) The system whic h generated this result transmit jae reference range : 4.50 - 11.00 k/ uL. The reference r jak was not used to interpret this result as normal/abnormal . RBC (test code = 4.95 m/uL 4.4-6 92599-0) HGB (test code = 718-7) 15.6 g/dL 14-18 HCT (test code = 4544-3) 47.1 % 41-51 MCV (test code = 787-2) 95.2 fL 82-100 MCH (test code = 785-6) 31.5 pg 27-34 MCHC (test code = 786-4) 33.1 g/dL 31-37 RDW - SD (test code = 44.5 fL 37-55 31900-2) MPV (test code = 10.6 fL 8.8-13.2 77927-3) Platelet count (test 227 See_Comment [Autom ated message] code = 71333-4) The system [facility] generated this result transmit jae reference range : 150 - 400 k/uL. The reference range was not used to interpret this result as normal/abnormal . Neutrophils (test code = 63.3 % 39-69 15345-7) Lymphocytes (test code = 28.1 % 25-45 68837-8) Monocytes (test code = 8.0 % 0-10 22090-5) Eosinophils (test code = 0.4 % 0-5 09545-2) Basophils (test code = 0.2 % 0-1 30756-0) Lab Interpretation (test Abnormal code = 25436-6) [facility] MethodistEstimated [id number] 22:31:29 Test Item Value Reference Range Interpretation Comments Estimated GFR (test >=90 mL/min/1.73 m2 Caterg ory Units code = 5488) InterpretationG 1 >=90 Normal or highG2 60-89 Mildly fumqobyoxI4w 45-59 Mildly to mode rately falmtgqznH2f 30-44 Moderately to severely decreasedG4 15-29 Severely decre asedG5 <15 Kidn ey failureThe eGFR was calculated efrain geller the Chronic Kidney Disease Epidemiology Co llaboration (CKD-EPI) equat ion. Interpretation is based on recommendations of the National Kidney Foundation-Kidn ey Disease Outcomes Qualit y Initiative ([facility]-KDOQI) pub lished in 2013. Ede LucasDC Abdomen Pelvis W [id number] 19:50:40Hm Interface, Radiology Results 07/31/2019 7:53 PM CDTEXAMINATION: CT ABDOMEN PELVIS W CONTRASTCLINICAL HISTORY: 48 yearsMale Abdominal pain rectal bleedingTECHNIQUE: Multidetector computed axial tomography of the abdomen and pelvis was preformed after the uncomplicated intravenous administration of IV contrast utilizing automated exposure control and/or iterative reconstruction techniques to radiation dose. Coronal and sagittal reformatted images created at the CT scanner communications technologist were also submitted for interpretation.COMPARISON: None [...] clinical correlation recommended. 2.Other findings as above. [facility]-[id number] Ede Lucas
--- OUTSIDE RECORDS SUMMARY | 2020-06-07 21:26 | XMS REPORT | Clinical Summary ---
:1970 Author Organization [facility] Address [address] [place] [address] Care Team Providers Name Role Phone Asked, [...] Dx) Daphnie Ayala MD 07/31/2019 Travel after 06/07/2019 Surgical History Surgery Date Site/Laterality Comments COLONOSCOPY [...] Comments COVID-19 VACCINE (1 of 2) 1984 HEPATITIS C SCREENING 1986 COLONOSCOPY SCREENING 2018 SHINGLES VACCINES (#1) 2018 [...] are i n the results section. after 06/07/2019 Results XR Chest 2 Vw (10/01/2019 5:54 [...] severely hyperinflated consistent with e mphysematous changes. [facility]-[id number] Procedure Note Hm Interface, Radiology Results Incoming [...] severely hyperinflated con sistent with emphysematous changes. [facility]-[id number] Performing Organization Address City/State/ZIP Code Phon e Number [facility] [address] [place] [address] CT Abdomen Pelvis W Contrast (07/31/2019 7:37 [...] image s created at the CT scanner chief cardiopulmonary technologist were also sub mitted for interpretation. [...] clinical correlation recommended. 2.Other findings as above. [facility]-[id number] Procedure Note [facility], Radiology Results - 07/31/2019 7:53 PM CDT EXAMINATION: CT ABDOMEN PELVIS W CONTRAST CLINICAL HISTORY: 48 yearsMale Abdominal pain rectal bleeding TECHNIQUE: Multidetector computed axial tomography of the abdomen and pelvis was preformed after the uncomplicated intravenous administration of IV contrast utilizing automated exposure control and/or iterative reconstruction techniques to radiation dose. Coronal and sagittal ref ormatted images created at the CT scanner chief cardiopulmonary technologist were also submitted for interpretation. COMPARISON: [...] clinical correlation recommended. 2.Other findings as above. [facility]-[id number] Performing Organization Address City/State/ZIP Code Phon e Number [facility] [address] [place] [address] Estimated GFR (07/31/2019 6:40 PM CDT) Estimated GFR >=90 mL/min/1.73 [facility] Comment: m2 [facility] Units Interpretation [facility] G1 >=90 [...] DEPARTMENT OF PATHOLOGY AND [address] [place] [address] GENOMIC MEDICINE, [facility] [address] CBC with platelet and differential (07/31/2019 6:40 PM CDT) Pathologist Sig nature WBC 11.31 (H) 4.50 - 11.00 k/uL [facility] [place] RBC 4.95 4.40 - 6.00 m/uL [facility] [place] HGB 15.6 14.0 - 18.0 g/dL [facility]GENCY [facility] HCT 47.1 41.0 - 51.0 % [facility] MCV 95.2 82.0 - 100.0 fL [facility] MCH 31.5 27.0 - 34.0 pg [facility] MCHC 33.1 31.0 - 37.0 g/dL [facility] RDW - SD 44.5 37.0 - 55.0 fL [facility] MPV 10.6 8.8 - 13.2 fL [facility] Platelet count 227 150 - 400 k/uL [facility] Neutrophils 63.3 39.0 - 69.0 % [facility] Lymphocytes 28.1 25.0 - 45.0 % [facility] Monocytes 8.0 0.0 - 10.0 % [facility] Eosinophils 0.4 0.0 - 5.0 % [facility] Basophils 0.2 0.0 - 1.0 % [facility] Specimen Blood Performing Organization Address City/[facility] Phon e Number DEPARTMENT OF PATHOLOGY AND [address] [place] [address] [place] [address] Amylase level (07/31/2019 6:40 PM CDT) Pathologist Sig nature Amylase 42 14 - 97 U/L [facility] Specimen Blood Performing Organization Address City/State/[facility] Code Phon e Number DEPARTMENT OF PATHOLOGY AND [address] [place] [address] [place] [address] Comprehensive metabolic panel (07/31/2019 6:40 PM CDT) Sodium 137 128 - 145 [facility] mEq/L [facility] Potassium 3.8 3.6 - 5.1 [facility] mEq/L [facility] CO2 28 18 - 33 mEq/L [facility] Chloride 103 98 - 108 mEq/L [facility] Glucose 101 73 - 118 mg/dL [facility] Calcium 9.6 8.0 - 10.3 [facility] mg/dL [facility] BUN 11 7 - 22 mg/dL [facility] Creatinine 0.9 0.7 - 1.2 [facility] mg/dL [facility] Alkaline phosphatase 61 53 - 128 U/L [facility] ALT 25 10 - 47 U/L [facility] AST 21 11 - 38 U/L [facility] Total bilirubin 0.7 0.2 - 1.6 [facility] mg/dL [facility] Albumin 4.5 3.3 - 5.5 g/dL [facility] Protein 7.1 6.4 - 8.1 g/dL [facility] Anion gap 6@ANIO (L) 7 - 15 mEq/L [facility] A/G ratio 1.7 0.7 - 3.8 [facility] Specimen Blood Performing Organization Address City/State/ZIP Code Phon e Number DEPARTMENT OF PATHOLOGY AND [address] [place] [address] GENOMIC MEDICINE, [facility] [address] after 06/07/2019 Insurance Payer Benefit Plan / Subscriber ID Effective Phone Address T ype Group Dates COMMERCIAL MISC MISC COMMERCIAL [id number] 2019-Pres Commercial ent Advance Directives For more information, please contact: [phone] Type Date Recorded Patient Plastics Process Hand Explanati on Advance Directives, Living Will 09/21/2017 5:25 PM and Medical Power of Residential Care Facility Manager
[2020-06-07 23:15] LABS: Basophils % 1.1 % (0-1.3); Hematocrit 45.9 % (39.6-49.0); MPV 8.9 fL (7.6-11.3); Protime INR 0.97; RBC Red Blood Cell Count 4.85 M/uL (4.33-5.43)
[2020-06-07] MEDS ORDERED: METHYLPREDNISOLONE 125 MG INJ ONE (23:21)
[2020-06-07] MEDS ORDERED: ASPIRIN 81 MG CHEWABLE TABLET ONE (23:21)
[2020-06-07] MEDS ORDERED: ALBUTEROL INHALER 60 PUFF/8 GM IH ONE (23:21)
[2020-06-07 23:27] LABS: ALT/SGPT 26 U/L (12-78); AST/SGOT 13 U/L (15-37); Alkaline Phosphatase 87 U/L (45-117); BUN Blood Urea Nitrogen 9 mg/dL (7-18); Bicarbonate 28 mmol/L (21-32); Bilirubin Direct < 0.1 mg/dL (0-0.2); Bilirubin Total 0.3 mg/dL (0.2-1.0); Glucose Level 99 mg/dL (74-106); Magnesium 2.3 mg/dL (1.8-2.4); NT PRO-BNP 14 pg/mL (<125); Potassium 4.3 mmol/L (3.5-5.1); Protein, Total 7.3 g/dL (6.4-8.2); Sodium Level 140 mmol/L (136-145); Troponin (Emerg Dept Use Only) < 0.02 ng/mL (0.0-0.045)
--- NOTE | 2020-06-08 01:55 | EDPHYS ---
Physician Documentation [facility] Name: Daryn Ramos Jr Age: 49 yrs Sex: Male : 1970 Arrival Date: 06/07/2020 Time: 21:27 Bed 30 Private MD: ED Physician Luis Garza HPI: 06/07 22:35 This 49 yrs old Male presents to ER via Ambulatory with complaints of Chest cp Tightness. 22:35 The patient or guardian reports chest pain that is located primarily in the anterior cp chest wall, bilaterally. The chest pain is described as tightness. 22:35 The pain does not radiate. Associated signs and symptoms: Pertinent positives: cough, cp Pertinent negatives: abdominal pain, diaphoresis, lower extremity pain, lower extremity swelling, shortness of breath, syncope, vomiting. Duration: The patient or guardian reports a single episode, that is still ongoing. Patient reports burning chest pain when breathing in. Historical: - Allergies: 21:46 EGG/POULTRY; jb4 21:46 PENICILLINS; jb4 21:46 cats/dogs; jb4 - Home Meds: 21:46 albuterol sulfate Oral [Active]; jb4 - PMHx: 21:46 Anxiety; Asthma; COPD; jb4 - PSHx: 21:46 None; jb4 - Immunization history:: Adult Immunizations up to date. - Social history:: Smoking status: Patient reports the use of cigarette tobacco products, smokes one-half pack cigarettes per day, Patient/guardian denies using alcohol, street drugs. ROS: 22:40 Constitutional: Negative for body aches, chills, fever, poor PO intake. cp 22:40 Eyes: Negative for injury, pain, redness, and discharge. cp 22:40 Neck: Negative for pain with movement, pain at rest, stiffness. 22:40 Cardiovascular: Positive for chest tightness, Negative for palpitations. 22:40 Respiratory: Positive for cough, with no reported sputum, wheezing. 22:40 Abdomen/GI: Negative for abdominal pain, nausea, vomiting, and diarrhea. 22:40 Neuro: Negative for altered mental status, headache, syncope, weakness. 22:40 All other systems are negative. Exam: 22:35 ECG was reviewed by the Attending Physician. cp 22:45 Constitutional: The patient appears in no acute distress, alert, awake, cp non-diaphoretic, non-toxic, well developed, well nourished. 22:45 Head/Face: Normocephalic, atraumatic. cp 22:45 Eyes: Periorbital structures: appear normal, Conjunctiva: normal, no exudate, no injection, Sclera: no appreciated abnormality, Lids and lashes: appear normal, bilaterally. 22:45 ENT: External ear(s): are unremarkable, Nose: is normal, Mouth: Lips: moist, Oral mucosa: moist, Posterior pharynx: Airway: no evidence of obstruction, patent. 22:45 Neck: ROM/movement: pain, is not appreciated, limited range of motion, is not appreciated. 22:45 Chest/axilla: Inspection: normal, Palpation: is normal, no crepitus, no tenderness. 22:45 Cardiovascular: Rate: normal, Rhythm: regular, Heart sounds: murmur, not appreciated, Edema: is not appreciated, JVD: is not appreciated. 22:45 Respiratory: the patient does not display signs of respiratory distress, Respirations: normal, no use of accessory muscles, no retractions, labored breathing, is not present, Breath sounds: decreased breath sounds, are not appreciated, stridor, is not appreciated, wheezing: that is mild, is heard in the left posterior lower lobe, right posterior middle lobe and right posterior lower lobe. 22:45 Abdomen/GI: Inspection: abdomen appears normal, Palpation: abdomen is soft and non-tender, in all quadrants. 22:45 Skin: no rash present. Vital Signs: 21:44 BP 123 / 90; Pulse 90; Resp 18; Temp 98.2(O); Pulse Ox 100% on R/A; Weight 72.57 kg jb4 (R); Height 5 ft. 11 in. (180.34 cm) (R); Pain 4/10; 23:30 BP 119 / 95; Pulse 82; Resp 19; Pulse Ox 96% on R/A; Pain 3/10; fu 23:30 BP 109 / 76; Pulse 69; Resp 18; Pulse Ox 95% on R/A; Pain 0/10; fu 06/08 00:15 BP 104 / 70; Pulse 67; Resp 18; Pulse Ox 98% on R/A; Pain 0/10; fu 01:00 BP 107 / 80; Pulse 68; Resp 16; Pain 0/10; fu 01:45 BP 111 / 85; Pulse 79; Resp 18; Pain 0/10; fu 06/07 21:44 Body Mass Index 22.32 (72.57 kg, 180.34 cm) jb4 MDM: 06/07 22:33 Patient medically screened. 23:00 Differential diagnosis: abnormal EKG, acute myocardial infarction, acute pericarditis, cp costochondritis, pneumonia, pneumothorax, pulmonary embolus, stable angina, thoracic aortic disection, unstable angina. 06/08 01:48 ED course: After discussion with attending physician, will contact hospitalist and cp request admission for cardiac r/o. 01:50 Data reviewed: vital signs, nurses notes, lab test result(s), EKG, radiologic studies, cp plain films. 01:50 The patient was given aspirin in the Emergency Department. Physician consultation: Cuauhtemoc ROBIN was called at 01:50, was contacted at 01:50, regarding admission, to the telemetry unit. patient's condition. 06/07 22:33 Order name: Basic Metabolic Panel 06/07 22:33 Order name: CBC with Diff 06/07 22:33 Order name: LFT's 06/07 22:33 Order name: Magnesium 06/07 22:33 Order name: NT PRO-BNP; Complete Time: 23:57 06/08 01:00 Interpretation: NT PRO-BNP 14; Reviewed. 06/07 22:33 Order name: PT-INR; Complete Time: 23:57 06/07 22:33 Order name: Troponin (emerg Dept Use Only); Complete Time: 23:57 06/07 23:57 Interpretation: TROPED < 0.02; Reviewed. 06/07 22:33 Order name: XRAY Chest (1 view) 06/07 22:33 Order name: Influenza Screen (a \T\ B); Complete Time: 23:57 06/08 01:00 Interpretation: Reviewed. 06/07 22:34 Order name: Basic Metabolic Panel; Complete Time: 23:57 EDMS 06/07 23:57 Interpretation: Normal except: CL 108. 06/07 22:34 Order name: CBC with Automated Diff; Complete Time: 23:57 EDMS 06/07 22:34 Order name: Liver (Hepatic) Function; Complete Time: 23:57 EDMS 06/08 01:00 Interpretation: Normal except: AST 13. cp 06/07 22:34 Order name: Magnesium; Complete Time: 23:57 EDMS 06/07 22:33 Order name: EKG; Complete Time: 22:34 cp 06/07 22:33 Order name: Cardiac monitoring; Complete Time: 23:56 cp 06/07 22:33 Order name: EKG - Nurse/Tech; Complete Time: 22:36 cp 06/07 22:33 Order name: IV Saline Lock; Complete Time: 22:59 cp 06/07 22:33 Order name: Labs collected and sent; Complete Time: 22:59 cp 06/07 22:33 Order name: O2 Per Protocol; Complete Time: :59 cp 06/07 22:33 Order name: O2 Sat Monitoring; Complete Time: 22:59 cp EC/19 22:35 Rate is 86 beats/min. Rhythm is regular. NV interval is normal. QRS interval is normal. cp QT interval is normal. T waves are Inverted in lead aVR. Interpreted by me. Reviewed by me. Administered Medications: 23:16 Drug: SOLU-Medrol 125 mg Route: IVP; Site: right antecubital; 06/08 00:16 Follow up: Response: No adverse reaction 06/07 23:16 Drug: Aspirin Chewable Tablet 324 mg Route: PO; 06/08 00:16 Follow up: Response: No adverse reaction 06/07 23:17 Drug: Albuterol HFA Inhaler 2 puffs Route: Inhalation; Disposition: 06/08 04:17 Co-signature as Attending Physician, Luis Garza MD. 7 Disposition: 06/08/20 02:15 Patient has left against medical advice. - Patients states they are going to Home. - Condition is Stable. - Problem is new. - Symptoms are resolved. Signatures: Dispatcher [employer] EDMA Cuauhtemoc Sumner, FREDERICK-C REGULATORY AFFAIRS ANALYST-Cla1 Bobby Lam PA PA cp Bryson, James, RN RN jb4 Hugh Stanford, Luis Saldana RN, MD MD [id number] Corrections: (The following items were deleted from the chart) 00:00 06/07 23:59 This 49 yrs old Male presents to ER via Ambulatory with cp complaints of Chest Tightness. cp 06/08 02:15 01:54 Hospitalization Ordered by Blaine Crespo MD for Observation. Preliminary la1 diagnosis is Chest pain, unspecified. Bed requested for Telemetry/MedSurg (observation). Status is Observation. Condition is Stable. Problem is new. Symptoms have improved. cp 02:18 02:15 06/08/2020 02:15 Patients has left against medical advice. Patient states they fu are going to Home. Condition is Stable. Prescriptions for Tessalon Perles 100 mg Oral Capsule - take 2 capsule by ORAL route every 8 hours As needed; 30 capsule, Zithromax Z-Dexter 250 mg Oral Tablet - take 1 tablet by ORAL route as directed for 5 days Day 1 - take two (2) tablets one time. Day 2, 3, 4 , 5 take one (1) tablet once daily.; 6 tablet, Prednisone 20 mg Oral Tablet - take 2 tablet by ORAL route once daily for 5 days; 10 tablet, Albuterol Sulfate 90 mcg/actuation - inhale 1-2 puff by INHALATION route every 4-6 hours; 1 InhalerProblem is new. Symptoms are resolved. la1
--- NOTE | 2020-06-08 01:55 | ER ---
Nurse's Notes [facility] Name: Daryn Ramos Jr Age: 49 yrs Sex: Male : 1970 Arrival Date: 06/07/2020 Time: 21:27 Bed 30 Private MD: Diagnosis: Presentation: 06/07 21:44 Chief complaint: Patient states: I started having a burning in my chest since last jb4 night. 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 I tried to sleep in the truck with my heat on and woke up like this. Coronavirus screen: Client denies travel out of the [place] in the last 14 days. At this time, the client does not indicate any symptoms associated with coronavirus-19. Ebola Screen: No symptoms or risks identified at this time. Initial Sepsis Screen: Does the patient meet any 2 criteria? No. Patient's initial sepsis screen is negative. Does the patient have a suspected source of infection? No. Patient's initial sepsis screen is negative. Risk Assessment: Do you want to hurt yourself or someone else? Patient reports no desire to harm self or others. Onset of symptoms was June 06, 2020. 21:44 Method Of Arrival: Ambulatory jb4 21:44 Acuity: SALEEM 3 jb4 Historical: - Allergies: 21:46 EGG/POULTRY; jb4 21:46 PENICILLINS; jb4 21:46 cats/dogs; jb4 - Home Meds: 21:46 albuterol sulfate Oral [Active]; jb4 - PMHx: 21:46 Anxiety; Asthma; COPD; jb4 - PSHx: 21:46 None; jb4 - Immunization history:: Adult Immunizations up to date. - Social history:: Smoking status: Patient reports the use of cigarette tobacco products, smokes one-half pack cigarettes per day, Patient/guardian denies using alcohol, street drugs. Screenin/20 00:50 Abuse screen: Denies threats or abuse. Nutritional screening: No deficits noted. fu Tuberculosis screening: No symptoms or risk factors identified. Fall Risk None identified. Assessment: 06/07 21:30 General: Appears in no apparent distress. Behavior is calm, cooperative, appropriate fu for age, Reports feeling ill for 1-2 days, Denies fever, chills. Pain: Complains of pain in mid chest pain Pain does not radiate. Pain currently is 3 out of 10 on a pain scale. Quality of pain is described as burning, Pain began 1 day ago. Neuro: Level of Consciousness is awake, alert, obeys commands, Oriented to person, place, time, situation, Moves all extremities. Gait is steady, Speech is normal, Facial symmetry appears normal. Cardiovascular: Reports chest pain, shortness of breath. Respiratory: Reports shortness of breath since last night pain with respiration since last night. GI: Patient currently denies diarrhea, nausea, vomiting. 23:00 Reassessment: Patient and/or family updated on plan of care and expected duration. Pain fu level reassessed. Patient is alert, oriented x 3, equal unlabored respirations, skin warm/dry/pink. patient resting in bed. 06/08 00:52 Reassessment: Patient and/or family updated on plan of care and expected duration. Pain fu level reassessed. Patient is alert, oriented x 3, equal unlabored respirations, skin warm/dry/pink. 02:08 Reassessment: Patient for admission, hospitalist in patient's room. fu 02:12 Reassessment: pt choose to go home against medical advice though risks and consequences bb were explained. 02:16 Reassessment: Patient left AMA. AMA form signed by patient. fu Vital Signs: 06/07 21:44 BP 123 / 90; Pulse 90; Resp 18; Temp 98.2(O); Pulse Ox 100% on R/A; Weight 72.57 kg jb4 (R); Height 5 ft. 11 in. (180.34 cm) (R); Pain 4/10; 23:30 BP 119 / 95; Pulse 82; Resp 19; Pulse Ox 96% on R/A; Pain 3/10; fu 23:30 BP 109 / 76; Pulse 69; Resp 18; Pulse Ox 95% on R/A; Pain 0/10; fu 06/08 00:15 BP 104 / 70; Pulse 67; Resp 18; Pulse Ox 98% on R/A; Pain 0/10; fu 01:00 BP 107 / 80; Pulse 68; Resp 16; Pain 0/10; fu 01:45 BP 111 / 85; Pulse 79; Resp 18; Pain 0/10; fu 06/07 21:44 Body Mass Index 22.32 (72.57 kg, 180.34 cm) jb4 ED Course: 06/07 21:27 Patient arrived in ED. am4 21:45 Triage completed. jb4 21:46 Arm band placed on right wrist. jb4 22:19 Bobby Lam PA is PHCP. cp 22:19 Luis Garza MD is Attending Physician. cp 22:21 Hugh Stanford, RN is Primary Nurse. fu 22:40 Inserted saline lock: 20 gauge in right antecubital area, using aseptic technique. fu Blood collected. 22:53 XRAY Chest (1 view) In Process Unspecified. EDMS 22:59 Magnesium Sent. fu 22:59 LFT's Sent. fu 22:59 CBC with Diff Sent. fu 22:59 Basic Metabolic Panel Sent. fu 22:59 NT PRO-BNP Sent. fu 22:59 PT-INR Sent. fu 22:59 Troponin (emerg Dept Use Only) Sent. fu 23:00 Magnesium Sent. fu 23:00 Liver (Hepatic) Function Sent. fu 23:00 Basic Metabolic Panel Sent. fu 23:00 CBC with Automated Diff Sent. fu 23:00 Influenza Screen (a \T\ B) Sent. fu 06/08 00:50 Patient has correct armband on for positive identification. Bed in low position. fu manager monitoring on. Pulse ox on. NIBP on. 00:50 No provider procedures requiring assistance completed. fu 00:51 Appears to be sleeping. fu 00:51 Patient maintains SpO2 saturation greater than 95% on room air. fu 01:53 Blaine Crespo MD is Hospitalizing Provider. cp 02:15 IV discontinued, bleeding controlled, Pressure dressing applied. fu Administered Medications: 06/07 23:16 Drug: SOLU-Medrol 125 mg Route: IVP; Site: right antecubital; fu 06/08 00:16 Follow up: Response: No adverse reaction fu 06/07 23:16 Drug: Aspirin Chewable Tablet 324 mg Route: PO; fu 06/08 00:16 Follow up: Response: No adverse reaction fu 06/07 23:17 Drug: Albuterol HFA Inhaler 2 puffs Route: Inhalation; fu Outcome: 06/08 01:54 Decision to Hospitalize by Provider. cp 02:17 AMA AMA form signed fu 02:17 Condition: good 02:17 Demonstrated understanding of instructions. 02:18 Patient left the ED. fu Signatures: Dispatcher [employer] EDAnitra Melvin, RN RN Bobby Alicea PA PA cp Bryson, James RN RN jb4 Hugh Stanford RN RN Meggan Lees
[2020-06-08 02:23] VITALS: TEMP 98.2
[2020-06-08 02:27] VITALS: O2SAT 98
[2020-06-08 02:29] VITALS: BP 111/85
--- NOTE | 2020-06-08 08:27 | RAD REPORT ---
EXAM DESCRIPTION: RAD - Chest Single View - 06/07/2020 10:53 pm CLINICAL HISTORY: COUGH, burning chest pain COMPARISON: May 09 TECHNIQUE: AP portable chest image was obtained 06/07/2020 10:53 pm . FINDINGS: No acute lung parenchymal process. Interstitial pattern is not clearly different from comp arison. Lung markings are accentuated slightly due to a more shallow inspiratory effort. Heart and va sculature are normal. No measurable pleural effusion and no pneumothorax. No acute bony abnormality s een. No acute aortic findings suspected. IMPRESSION: No acute cardiopulmonary process.
== END 2020-06-08 02:18 | disposition left against medical advice (07) ==
LOC: ER 21:23
DX: R07.89 Other chest pain (principal); F17.210 Nicotine dependence, cigarettes, uncomplicated; J45.909 Unspecified asthma, uncomplicated; Z88.0 Allergy status to penicillin; Z91.012 Allergy to eggs; Z91.018 Allergy to other foods
CPT/HCPCS: 93005; 85025; 80048; 36415; 83735; 85610; 80076; 84484; 83880; 87804 ×2; 71045; 96374; 99285; J2930

== ENCOUNTER 2020-06-11 04:26 | Emergency (ER) | payer OTHER ==
--- OUTSIDE RECORDS SUMMARY | 2020-06-11 04:29 | XMS REPORT | Continuity of Care Document ---
:1970 Author Organization [facility] t Address [address] [place] [address] Care Team Providers Name Role Phone Asked, Pcp Primary Care Physician Unavailable Provider, Urgent Care Attending Clinician Unavailable Gaye PULIDO Attending Clinician Ivan Louis MD Attending Clinician Steve PULIDO Attending Clinician Melany Winchester MD Attending Clinician Kenna CLARKE, Daphnie Ayala Attending Clinician [phone] Payers Payer Name Policy Type Policy Effective Date Expiration Date Sour ce Number COMMERCIAL [id number] 2019 [place] MISCMISC 00:00:00 Buddhist COMMERCIALxxxxx7 77-Pre sentCommercial Problems This patient has [...] Comments Source Sex Assigned At [facility] Cigarettes smoked 2019-12-25 2019-12-25 [place] [facility] current (pack per 00:00:00 00:00:00 day) - Reported Cigarette 2019-12-25 2019-12-25 [place] [facility] ist pack-years 00:00:00 00:00:00 Tobacco use and 2019-12-25 2019-12-25 Current user [place] [facility] exposure 00:00:00 00:00:00 Alcohol intake 2019-12-25 2019-12-25 Current [facility] thodist 00:00:00 00:00:00 non-drinker of alcohol (finding) Alcohol Comment 2017-09-21 2017-09-21 former [facility] 00:00:00 00:00:00 Smoking Status Start Date [...] blood 2019-12-25 14:25:00 125 mm[Hg] [place] pressure Diastolic blood 2019-12-25 14:25:00 86 mm[Hg] [place] [facility] pressure Heart rate 2019-12-25 14:25:00 79 /min [place] [employer] Body temperature 2019-12-25 14:25:00 36.56 Ariadna Tutu [...] DIFF COMPREHENSIVE METABOLIC 2019-07-31 18:40:00 Cameron [place] Buddhist PANEL AMYLASE LEVEL 2019-07-31 18:40:00 Cameron [place] thodist ESTIMATED GFR 2019-07-31 18:40:00 Cameron [place] [facility]odist Plan of Care Planned Activity Planned Date Details Comments Source Future Scheduled 2019-11-18 INFLUENZA VACCINE [place] [facility] Test 00:00:00 [code = INFLUENZA VACCINE] Future Scheduled 2018 COLONOSCOPY SCREENING [place] [facility] Test 00:00:00 [code = COLONOSCOPY SCREENING] Future Scheduled 2018 SHINGLES VACCINES [place] [facility] Test 00:00:00 (#1) [code = SHINGLES VACCINES (#1)] Future Scheduled 1986 Hepatitis C screening [place] [facility] Test 00:00:00 (procedure) [code = 713321770] Future Scheduled 1984 COVID-19 VACCINE (1 [place] [facility] Test 00:00:00 of 2) [code = COVID-19 VACCINE (1 of 2)] Encounters Start End Encounter Admission Attending Care Care Encounter Source Date/Time Date/Time Type Type Clinicians Facility Department ID 2020-03-26 2020-03-26 Urgent Provider, [facility] [id number] 16:08:35 17:21:[address] [facility] [id number] Care [place] [id number] Professio [phone] nal 044 Office [address] 2020-02-01 2020-02-01 Office STEFAN Huizar [id number] 08:30:53 09:30:53 Visit Juanita Eaton [id number] Point [id number] Professio [phone] nal 085 [facility] 2019-12-25 2019-12-25 Emergency SCHEMIDT, [facility] [id number] [place] 00:00:00 00:00:00 RAYMUNDO [address] 2019-10-01 2019-10-01 Emergency ISRAENA, [facility] [id number] [place] 00:00:00 00:00:00 SETH [address] 2019-07-31 2019-07-31 Emergency KENNA, [facility]4 [id number] [place] 00:00:00 00:00:00 BETTY [address] Results Test Description Test Time Test Comments Results Result Sourc e Comments XR Chest 2 Vw 2019-09-18 [facility] [place] [address] 17:55:23 - 10/01/2019 5:58 PM CDTEXAMINATION: XR CHEST 2 VWCLINICAL HISTORY: sobCOMPARISON: To previous study from 09/21/2017IMPRESSION:The cardiomediastinal silhouette is normal in appearance.The lungs are clear. There is no evidence of consolidation, congestion, or pneumothorax.A pleural effusion is not present.Visualized skeletal structures demonstrate no definite abnormality.The lungs are severely hyperinflated consistent with emphysematous changes.[facility]-[id number] F Comprehensive metabolic panel 2019-07-31 22:31:29 Test [...] 101 mg/dL 73-118 Calcium (test code = 12889-0) 9.6 mg/dL 8-10.3 BUN (test code = [...] See_Comment L [Aut omated message] The system 27366-5) which generated this result transmitted ref erence range: 7 - 15 mEq/L. The reference range was not used to interpret this result as micheline l/abnormal. A/G ratio (test code = 1759-0) 1.7 0.7-3.8 Lab Interpretation (test code Abnormal = 46358-2) Ede MethodistAmylase [id number] 22:31:29 Test Item Value Reference Range Interpretation Comments Amylase (test code = 1798-8) 42 U/L 14-97 Ede MethodistCBC with platelet and [id number] 22:31:29 Test Item Value Reference Range Interpretation Comments WBC (test code = 11.31 See_Comment H [Automated message] 28713-7) The system whic h generated this result transmit jae reference range : 4.50 - 11.00 k/ uL. The reference r jak was not used to interpret this result as normal/abnormal . RBC (test code = 4.95 m/uL 4.4-6 69368-2) HGB (test code = 718-7) 15.6 g/dL 14-18 HCT (test code = 4544-3) 47.1 % 41-51 MCV (test code = 787-2) 95.2 fL 82-100 MCH (test code = 785-6) 31.5 pg 27-34 MCHC (test code = 786-4) 33.1 g/dL 31-37 RDW - SD (test code = 44.5 fL 37-55 56205-2) MPV (test code = 10.6 fL 8.8-13.2 82658-2) Platelet count (test 227 See_Comment [Autom ated message] code = 66394-8) The system w [facility] generated this result transmit jae reference range : 150 - 400 k/uL. The reference range was not used to interpret this result as normal/abnormal . Neutrophils (test code = 63.3 % 39-69 36843-8) Lymphocytes (test code = 28.1 % 25-45 96281-4) Monocytes (test code = 8.0 % 0-10 98680-8) Eosinophils (test code = 0.4 % 0-5 96167-1) Basophils (test code = 0.2 % 0-1 33958-4) Lab Interpretation (test Abnormal code = 01425-8) [place] MethodistEstimated [id number] 22:31:29 Test Item Value Reference Range Interpretation Comments Estimated GFR (test >=90 mL/min/1.73 m2 Caterg ory Units code = 5488) InterpretationG 1 >=90 Normal or highG2 60-89 Mildly ondzughgvX3g 45-59 Mildly to mode rately hmkcecmsdF2e 30-44 Moderately to severely decreasedG4 15-29 Severely decre asedG5 <15 Kidn ey failureThe eGFR was calculated efrain geller the Chronic Kidney Disease Epidemiology Co llaboration (CKD-EPI) equat ion. Interpretation is based on recommendations of the National Kidney Foundation-Kidn ey Disease Outcomes Qualit y Initiative ([facility]-KDOQI) pub lished in 2013. Ede LucasNY Abdomen Pelvis W [id number] 19:50:40Hm Interface, Radiology Results 07/31/2019 7:53 PM CDTEXAMINATION: CT ABDOMEN PELVIS W CONTRASTCLINICAL HISTORY: 48 yearsMale Abdominal pain rectal bleedingTECHNIQUE: Multidetector computed axial tomography of the abdomen and pelvis was preformed after the uncomplicated intravenous administration of IV contrast utilizing automated exposure control and/or iterative reconstruction techniques to radiation dose. Coronal and sagittal reformatted images created at the CT scanner creative technologist were also submitted for interpretation.COMPARISON: None [...] clinical correlation recommended. 2.Other findings as above. [facility]-[id number] Ede Lucas
--- OUTSIDE RECORDS SUMMARY | 2020-06-11 04:29 | XMS REPORT | Clinical Summary ---
:1970 Author Organization [facility] Address [address] [place] [address] Care Team Providers Name Role Phone Asked, [...] Dx) Daphnie Ayala MD 07/31/2019 Travel after 06/11/2019 Surgical History Surgery Date Site/Laterality Comments COLONOSCOPY [...] are i n the results section. after 06/11/2019 Results XR Chest 2 Vw (10/01/2019 5:54 [...] severely hyperinflated consistent with e mphysematous changes. [facility]-[id number] Procedure Note Hm Interface, Radiology Results Incoming [...] severely hyperinflated con sistent with emphysematous changes. [facility]-[id number] Performing Organization Address City/State/ZIP Code Phon e Number RADIANT [address] [place] [address] CT Abdomen Pelvis W Contrast (07/31/2019 7:37 [...] image s created at the CT scanner dental technologist were also sub mitted for interpretation. [...] clinical correlation recommended. 2.Other findings as above. [facility]-[id number] Procedure Note [facility], Radiology Results - 07/31/2019 7:53 PM CDT EXAMINATION: CT ABDOMEN PELVIS W CONTRAST CLINICAL HISTORY: 48 yearsMale Abdominal pain rectal bleeding TECHNIQUE: Multidetector computed axial tomography of the abdomen and pelvis was preformed after the uncomplicated intravenous administration of IV contrast utilizing automated exposure control and/or iterative reconstruction techniques to radiation dose. Coronal and sagittal ref ormatted images created at the CT scanner dental technologist were also submitted for interpretation. COMPARISON: [...] clinical correlation recommended. 2.Other findings as above. [facility]-[id number] Performing Organization Address City/State/ZIP Code Phon e Number RADIANT [address] [place] [address] Estimated GFR (07/31/2019 6:40 PM CDT) Estimated GFR >=90 mL/min/1.73 [facility] Comment: m2 [facility] Units Interpretation DONALD [facility] G1 >=90 [...] DEPARTMENT OF PATHOLOGY AND [address] [place] [address] GENOMIC MEDICINE, [facility] [address] CBC with platelet and differential (07/31/2019 6:40 PM CDT) Pathologist Sig nature WBC 11.31 (H) 4.50 - 11.00 k/uL [facility] EMERGENCY CARE [place] RBC 4.95 4.40 - 6.00 m/uL [facility] [place] HGB 15.6 14.0 - 18.0 g/dL [facility] EMERGENCY [facility] HCT 47.1 41.0 - 51.0 % [facility] MCV 95.2 82.0 - 100.0 fL [facility] MCH 31.5 27.0 - 34.0 pg [facility] EMERGENCY [facility] MCHC 33.1 31.0 - 37.0 g/dL [facility] RDW - SD 44.5 37.0 - 55.0 fL [facility] EMERGENCY [facility] MPV 10.6 8.8 - 13.2 fL [facility] Platelet count 227 150 - 400 k/uL [facility] Neutrophils 63.3 39.0 - 69.0 % [facility] Lymphocytes 28.1 25.0 - 45.0 % [facility] Monocytes 8.0 0.0 - 10.0 % [facility] Eosinophils 0.4 0.0 - 5.0 % [facility] Basophils 0.2 0.0 - 1.0 % [facility] Specimen Blood Performing Organization Address City/[facility] Phon e Number DEPARTMENT OF PATHOLOGY AND [address] [place] [address] [place] [address] Amylase level (07/31/2019 6:40 PM CDT) Pathologist Sig nature Amylase 42 14 - 97 U/L [facility] Specimen Blood Performing Organization Address City/State/[facility] Code Phon e Number DEPARTMENT OF PATHOLOGY AND [address] [place] [address] [place] [address] Comprehensive metabolic panel (07/31/2019 6:40 PM CDT) Sodium 137 128 - 145 [facility] mEq/L [facility] Potassium 3.8 3.6 - 5.1 [facility] mEq/L [facility] CO2 28 18 - 33 mEq/L [facility] Chloride 103 98 - 108 mEq/L [facility] Glucose 101 73 - 118 mg/dL [facility] Calcium 9.6 8.0 - 10.3 [facility] mg/dL [facility] BUN 11 7 - 22 mg/dL [facility] Creatinine 0.9 0.7 - 1.2 [facility] mg/dL [facility] Alkaline phosphatase 61 53 - 128 U/L [facility] ALT 25 10 - 47 U/L [facility] AST 21 11 - 38 U/L [facility] Total bilirubin 0.7 0.2 - 1.6 [facility] mg/dL [facility] Albumin 4.5 3.3 - 5.5 g/dL [facility] Protein 7.1 6.4 - 8.1 g/dL [facility] Anion gap 6@ANIO (L) 7 - 15 mEq/L [facility] A/G ratio 1.7 0.7 - 3.8 [facility] Specimen Blood Performing Organization Address City/State/ZIP Code Phon e Number DEPARTMENT OF PATHOLOGY AND [address] [place] [address] GENOMIC MEDICINE, [facility] [address] after 06/11/2019 Insurance Payer Benefit Plan / Subscriber ID Effective Phone Address T ype Group Dates COMMERCIAL MISC MISC COMMERCIAL [id number] 2019-Pres Commercial ent Advance Directives For more information, please contact: [phone] Type Date Recorded Patient Box Attacher Explanati on Advance Directives, Living Will 09/21/2017 5:25 PM and Medical Power of Computer Hardware Developer
[2020-06-11 05:35] LABS: Absolute Lymphocytes (CBC) 1.4 K/uL (0.7-4.9); Basophils % 0.3 % (0-1.3); Hematocrit 43.1 % (39.6-49.0); Lymphocytes % 16.9 % (15.3-44.8); MPV 8.8 fL (7.6-11.3); RBC Red Blood Cell Count 4.58 M/uL (4.33-5.43)
[2020-06-11 05:54] LABS: Protime INR 0.93
[2020-06-11 05:58] LABS: ALT/SGPT 26 U/L (12-78); AST/SGOT 9 U/L (15-37); Albumin 3.7 g/dL (3.4-5.0); Alkaline Phosphatase 81 U/L (45-117); BUN Blood Urea Nitrogen 14 mg/dL (7-18); Bicarbonate 26 mmol/L (21-32); Bilirubin Direct 0.1 mg/dL (0-0.2); Bilirubin Total 0.4 mg/dL (0.2-1.0); CKMB Creatine Kinase MB < 1.0 ng/mL (0.3-3.6); Creatine Phosphokinase 70 U/L (39-308); Glucose Level 133 mg/dL (74-106); Lipase 96 U/L (73-393); Magnesium 2.3 mg/dL (1.8-2.4); NT PRO-BNP 37 pg/mL (<125); Protein, Total 6.7 g/dL (6.4-8.2); Sodium Level 141 mmol/L (136-145); Troponin (Emerg Dept Use Only) < 0.02 ng/mL (0.0-0.045)
--- NOTE | 2020-06-11 07:07 | ER ---
Nurse's Notes [facility] Name: Daryn Ramos Jr Age: 49 yrs Sex: Male : 1970 Arrival Date: 06/11/2020 Time: 04:28 Bed 4 Private MD: Diagnosis: Dyspnea, unspecified Presentation: 06/11 04:49 Chief complaint: Patient states: i was lying on my side and i checked my O2 it was 89%. mg2 denies shortness of breath, chest pain. i was here last time and diagnosed with Bronchitis and i was sent home with zithromax, prednisone and albuterol neb. Coronavirus screen: Client denies travel out of the [place] in the last 14 days. Ebola Screen: No symptoms or risks identified at this time. 04:49 Method Of Arrival: Ambulatory mg2 04:53 Initial Sepsis Screen: Does the patient meet any 2 criteria? No. Patient's initial mg2 sepsis screen is negative. Does the patient have a suspected source of infection? No. Patient's initial sepsis screen is negative. Risk Assessment: Do you want to hurt yourself or someone else? Patient reports no desire to harm self or others. Onset of symptoms was June 11, 2020. 04:53 Acuity: SALEEM 4 mg2 Triage Assessment: 04:55 General: Appears in no apparent distress. comfortable, Behavior is calm, cooperative. mg2 Pain: Denies pain. EENT: No signs and/or symptoms were reported regarding the EENT system. Neuro: Level of Consciousness is awake, alert, obeys commands, Oriented to person, place, time, situation. Cardiovascular: Capillary refill < 3 seconds Patient's skin is warm and dry. Respiratory: Airway is patent Respiratory effort is even, unlabored, Respiratory pattern is regular, symmetrical. Respiratory: Reports low O2 at home. GI: No signs and/or symptoms were reported involving the gastrointestinal system. : No signs and/or symptoms were reported regarding the genitourinary system. Derm: Skin is intact, is healthy with good turgor, Skin is pink, warm \T\ dry. normal. Musculoskeletal: Circulation, motion, and sensation intact. Capillary refill < 3 seconds. Historical: - Allergies: 04:55 cats/dogs; mg2 04:55 EGG/POULTRY; mg2 04:55 PENICILLINS; mg2 - Home Meds: 04:55 Albuterol Nebulizer [Active]; Prednisone Oral [Active]; Zithromax Oral [Active]; mg2 - PMHx: 04:55 Anxiety; Asthma; COPD; mg2 - PSHx: 04:55 None; mg2 - Immunization history:: Flu vaccine status is unknown. - Social history:: Smoking status: Patient reports the use of cigarette tobacco products, Patient/guardian denies using alcohol, street drugs. Screenin:56 Abuse screen: Denies threats or abuse. Denies injuries from another. Nutritional mg2 screening: No deficits noted. Tuberculosis screening: No symptoms or risk factors identified. Fall Risk None identified. Assessment: 04:56 General: see triage note. mg2 05:48 Reassessment: Patient appears in no apparent distress at this time. Patient and/or mg2 family updated on plan of care and expected duration. Pain level reassessed. Patient is alert, oriented x 3, equal unlabored respirations, skin warm/dry/pink. 06:44 Reassessment: Patient appears in no apparent distress at this time. Patient and/or em family updated on plan of care and expected duration. Pain level reassessed. Patient is alert, oriented x 3, equal unlabored respirations, skin warm/dry/pink. Vital Signs: 04:49 BP 129 / 93; Pulse 78; Resp 18; Temp 97.6; Pulse Ox 97% on R/A; Weight 72.57 kg; Height mg2 5 ft. 11 in. (180.34 cm); Pain 0/10; 05:48 BP 118 / 75; Pulse 64; Resp 18; Pulse Ox 97% on R/A; mg2 06:44 BP 107 / 74; Pulse 70; Resp 18; Pulse Ox 97% on R/A; em 04:49 Body Mass Index 22.32 (72.57 kg, 180.34 cm) mg2 ED Course: 04:28 Patient arrived in ED. cl3 04:43 Keagan Morgan RN is Primary Nurse. mg2 04:48 Mac Gan MD is Attending Physician. tw4 04:53 Triage completed. mg2 04:55 Arm band placed on. mg2 04:56 Patient has correct armband on for positive identification. mg2 04:56 No provider procedures requiring assistance completed. mg2 05:20 Initial lab(s) drawn, by me, sent to lab. Inserted saline lock: 20 gauge in right em antecubital area, using aseptic technique. Blood collected. 05:32 XRAY CXR (1 view) In Process Unspecified. EDMS 07:18 Primary Nurse role handed off by Keagan Morgan RN bd 07:23 IV discontinued, intact, bleeding controlled, No redness/swelling at site. Pressure ss dressing applied. Administered Medications: No medications were administered Outcome: 07:05 Discharge ordered by . tavo 07:23 Discharged to home ambulatory. ss 07:23 Condition: good 07:23 Discharge instructions given to patient, Instructed on discharge instructions, follow up and referral plans. medication usage, Demonstrated understanding of instructions, follow-up care, medications, Prescriptions given X 2. 07:24 Patient left the ED. ss Signatures: Dispatcher [employer] [facility] Vicky Leal Edgar, RN RN Brenna Denis RN RN ss Wadley, Terrence, MD MD tw4 Gardose, Michele, RN RN mg2 Marcus Munoz cl3 Corrections: (The following items were deleted from the chart) 05:22 04:56 Patient did not have IV access during this emergency room visit. mg2 em
--- NOTE | 2020-06-11 07:07 | EDPHYS ---
Physician Documentation [facility] Name: Daryn Ramos Jr Age: 49 yrs Sex: Male : 1970 Arrival Date: 06/11/2020 Time: 04:28 Bed 4 Private MD: ED Physician Mac Gan HPI: 06/11 06:15 This 49 yrs old Male presents to ER via Ambulatory with complaints of O2 Low, tw4 Weakness. 06:15 The patient or guardian reports cough. Onset: The symptoms/episode began/occurred tw4 today. Severity of symptoms: At their worst the symptoms were moderate, in the emergency department the symptoms are unchanged. Modifying factors: The symptoms are alleviated by nothing, the symptoms are aggravated by nothing. The patient has not experienced similar symptoms in the past. Historical: - Allergies: 04:55 cats/dogs; mg2 04:55 EGG/POULTRY; mg2 04:55 PENICILLINS; mg2 - Home Meds: 04:55 Albuterol Nebulizer [Active]; Prednisone Oral [Active]; Zithromax Oral [Active]; mg2 - PMHx: 04:55 Anxiety; Asthma; COPD; mg2 - PSHx: 04:55 None; mg2 - Immunization history:: Flu vaccine status is unknown. - Social history:: Smoking status: Patient reports the use of cigarette tobacco products, Patient/guardian denies using alcohol, street drugs. ROS: 06:15 Constitutional: Negative for fever, chills, and weight loss, Neck: Negative for injury, tw4 pain, and swelling, Cardiovascular: Negative for chest pain, palpitations, and edema, Abdomen/GI: Negative for abdominal pain, nausea, vomiting, diarrhea, and constipation, Back: Negative for injury and pain, MS/Extremity: Negative for injury and deformity, Skin: Negative for injury, rash, and discoloration, Neuro: Negative for headache, weakness, numbness, tingling, and seizure. Exam: 06:15 Constitutional: This is a well developed, well nourished patient who is awake, alert, tw4 and in no acute distress. Head/Face: Normocephalic, atraumatic. Chest/axilla: Normal chest wall appearance and motion. Nontender with no deformity. No lesions are appreciated. Cardiovascular: Regular rate and rhythm with a normal S1 and S2. No gallops, murmurs, or rubs. Normal PMI, no JVD. No pulse deficits. Respiratory: Lungs have equal breath sounds bilaterally, clear to auscultation and percussion. No rales, rhonchi or wheezes noted. No increased work of breathing, no retractions or nasal flaring. Abdomen/GI: Soft, non-tender, with normal bowel sounds. No distension or tympany. No guarding or rebound. No evidence of tenderness throughout. Skin: Warm, dry with normal turgor. Normal color with no rashes, no lesions, and no evidence of cellulitis. MS/ Extremity: Pulses equal, no cyanosis. Neurovascular intact. Full, normal range of motion. Neuro: Awake and alert, GCS 15, oriented to person, place, time, and situation. Cranial nerves II-XII grossly intact. Motor strength 5/5 in all extremities. Sensory grossly intact. Cerebellar exam normal. Normal gait. Vital Signs: 04:49 BP 129 / 93; Pulse 78; Resp 18; Temp 97.6; Pulse Ox 97% on R/A; Weight 72.57 kg; Height mg2 5 ft. 11 in. (180.34 cm); Pain 0/10; 05:48 BP 118 / 75; Pulse 64; Resp 18; Pulse Ox 97% on R/A; mg2 06:44 BP 107 / 74; Pulse 70; Resp 18; Pulse Ox 97% on R/A; em 04:49 Body Mass Index 22.32 (72.57 kg, 180.34 cm) mg2 MDM: 07:05 Patient medically screened. 06/11 05:07 Order name: Blood Culture Adult (2) 06/11 05:07 Order name: BMP 06/11 05:07 Order name: CBC with Diff 06/11 05:07 Order name: Ckmb 06/11 05:07 Order name: CPK 06/11 05:07 Order name: Hepatic Function 06/11 05:07 Order name: XRAY CXR (1 view) 06/11 05:07 Order name: Lipase 06/11 05:07 Order name: Magnesium 06/11 05:07 Order name: NT PRO-BNP 06/11 05:07 Order name: PT-INR 06/11 05:07 Order name: Ptt, Activated 06/11 05:07 Order name: Troponin (emerg Dept Use Only) 06/11 05:07 Order name: EKG; Complete Time: :06/11 05:07 Order name: Cardiac monitoring; Complete Time: :06/11 05:07 Order name: EKG - Nurse/Tech; Complete Time: :06/11 05:07 Order name: IV Saline Lock; Complete Time: :06/11 05:07 Order name: Labs collected and sent; Complete Time: :06/11 05:07 Order name: O2 Per Protocol; Complete Time: :06/11 05:07 Order name: O2 Sat Monitoring; Complete Time: : EC:15 Rate is 73 beats/min. Rhythm is regular. QRS [place] is Normal. [place] interval is normal. QRS tw4 interval is normal. No Q waves. T waves are Normal. No ST changes noted. Clinical impression: Sinus arrythmia. Interpreted by me. Reviewed by me. Administered Medications: No medications were administered Disposition: 06/11/20 07:05 Discharged to Home. Impression: Dyspnea, unspecified. - Condition is Stable. - Discharge Instructions: Shortness of Breath. - Prescriptions for Tessalon Perles 100 mg Oral Capsule - take 1 capsule by ORAL route every 8 hours As needed; 15 capsule. Albuterol Sulfate 90 mcg/actuation - inhale 1-2 puff by INHALATION route every 4-6 hours; 1 Inhaler. - Medication Reconciliation Form, Thank You Letter, Antibiotic Education, Prescription Opioid Use form. - Follow up: Private Physician; When: Upon discharge from the Emergency Department; Reason: Recheck today's complaints, Continuance of care, Re-evaluation by your physician. - Problem is new. - Symptoms have improved. Signatures: Dispatcher [employer] [facility] Brenna Bird RN RN ss Mac Gan MD MD tw4 Keagan Morgan RN RN mg2 Corrections: (The following items were deleted from the chart) 05:16 05:08 Blood Culture ordered. [facility] 07:24 07:05 06/11/2020 07:05 Discharged to Home. Impression: Dyspnea, unspecified. Condition ss is Stable. Forms are Medication Reconciliation Form, Thank You Letter, Antibiotic Education, Prescription Opioid Use. Follow up: Private Physician; When: Upon discharge from the Emergency Department; Reason: Recheck today's complaints, Continuance of care, Re-evaluation by your physician. Problem is new. Symptoms have improved. tw4
[2020-06-11 07:37] VITALS: BP 129/93; TEMP 97.6; O2SAT 97
--- NOTE | 2020-06-11 08:59 | RAD REPORT ---
EXAM DESCRIPTION: Ria Single View06/11/2020 5:32 am CLINICAL HISTORY: Shortness of breath COMPARISON: June 07, 2020 FINDINGS: The lungs appear clear of acute infiltrate. The heart is normal size IMPRESSION: No acute abnormalities displayed
--- NOTE | 2020-06-11 23:58 | EKG ---
Test Date: 2020-06-11 Test Time: 05:19:25 Air Traffic Supervisor: GAYLE MEASUREMENT RESULTS: Intervals: Rate: 73 MO: 168 QRSD: 86 QT: 380 QTc: 418 [place]: P: 60 MO: 168 QRS: 58 T: 68 INTERPRETIVE STATEMENTS: Normal sinus rhythm with sinus arrhythmia Early repolarization Normal ECG Compared to ECG 06/07/2020 21:41:59 Early repolarization now present Electronically Signed On 06-11-20 23:57:36 PRESIDING STEWARD by Enrique Rothman
== END 2020-06-11 07:24 | disposition home or self-care (01) ==
LOC: ER 04:26
DX: R06.00 Dyspnea, unspecified (principal); J44.9 Chronic obstructive pulmonary disease, unspecified; Z72.0 Tobacco use; Z88.0 Allergy status to penicillin; Z91.012 Allergy to eggs; Z91.018 Allergy to other foods
CPT/HCPCS: 36415; 71045; 80048; 80076; 82550; 82553; 83690; 83735; 83880; 84484; 85025; 85610; 85730; 93005; 99284

== ENCOUNTER 2020-08-20 06:13 | Emergency (ER) | payer OTHER ==
--- OUTSIDE RECORDS SUMMARY | 2020-08-20 06:16 | XMS REPORT | Continuity of Care Document ---
:1970 Author Organization [facility] t Address [address] [place] [address] Care Team Providers Name Role Phone Asked, Pcp Primary Care Physician Unavailable Arabella CLARKE, PIraida Attending Clinician Gaye DO Attending Clinician Ivan Louis MD Attending Clinician Steve DO Attending Clinician MICHAEL Attending Clinician Unavailable Payers Payer Name Policy Type Policy Effective Date Expiration Date Sour ce Number COMMERCIAL [id number] 2019 [place] MISCMISC 00:00:00 Hindu COMMERCIALxxxxx7 -Pre sentCommercial Problems This patient has no known problems. Allergies, Adverse Reactions, Alerts Allergy Allergy Status Severity Reaction(s) Onset Inactive Treating Comm ents Source Name Type Date Date Clinician Cat's Propensi Active Mera Claw ty to 605 Methodi (Uncaria adverse 00:00: st Tomentos reaction 00 a) s to drug Dog Propensi Active Shortness Of [place] Dander ty to Breath 05 [facility] adverse 00:00: st reaction 00 s to drug Eggshell Propensi Active Unknown [place] Membrane ty to 6 Methodi adverse 00:00: st reaction 00 s to drug Penicill Propensi Active Rash [place] ty to 6 [facility] adverse 00:00: st reaction 00 s to drug Cat Propensi Active Shortness Of Ho usmark anthony Dander ty to Breath 09-21 Methodi adverse 00:00: st reaction 00 s to drug Social History Social Habit Start Date Stop Date Quantity Comments Source Cigarettes smoked 2019-12-25 2019-12-25 Ede Hindu current (pack per 00:00:00 00:00:00 day) - Reported Cigarette 2019-12-25 2019-12-25 Mera Method ist pack-years 00:00:00 00:00:00 Tobacco use and 2019-12-25 2019-12-25 Current user Mera Hindu exposure 00:00:00 00:00:00 Alcohol intake 2019-12-25 2019-12-25 Current Mera N[facility] thodist 00:00:00 00:00:00 non-drinker of alcohol (finding) Alcohol Comment 2017-09-21 2017-09-21 former Ede Serrano ethodist 00:00:00 00:00:00 Sex Ass[birth year] At [birth year] [facility] ethodist 00:00:00 00:00:00 Smoking Status [...] (six) solution hours as needed for wheezing. Immunizations Ordered Immunization Filled Immunization Date Status Commen ts Source Name Name PFIZER COVID-19 MRNA 2020-08-19 Completed [place] VACCINATION 00:00:00 Hindu PFIZER COVID-19 MRNA 2020-07-29 Completed [place] VACCINATION 00:00:00 Hindu Vital Signs Vital Name Observation Time Observation Value Comments Source Systolic blood 2019-12-25 14:25:00 125 mm[Hg] [place] Hindu pressure Diastolic blood 2019-12-25 14:25:00 86 mm[Hg] [place] Hindu pressure Heart rate 2019-12-25 14:25:00 79 /min Ede Lucas Body temperature 2019-12-25 14:25:00 36.56 Ariadna [place] Hindu Respiratory rate 2019-12-25 14:25:00 18 /min [place] Hindu Body height 2019-12-25 14:25:00 180.3 cm Mera Hindu Body weight 2019-12-25 14:25:00 72.576 kg Ede Lucas BMI 2019-12-25 14:25:00 22.32 kg/m2 Mera Hindu Oxygen saturation in 2019-12-25 14:25:00 99 /min [place] Hindu Arterial blood by Pulse oximetry Procedures Procedure Date / Time Performed Performing Clinician Sourc e XR CHEST 2 2019-10-01 17:54:33 Mantalanna, Seth Mera Meth odist Plan of Care Planned Activity Planned Date Details Comments Source Future Scheduled 2020-11-17 INFLUENZA VACCINE [place] [facility] Test 00:00:00 [code = INFLUENZA VACCINE] Future Scheduled 2018 COLONOSCOPY SCREENING [place] Hindu Test 00:00:00 [code = COLONOSCOPY SCREENING] Future Scheduled 2018 SHINGLES VACCINES [place] [facility] Test 00:00:00 (#1) [code = SHINGLES VACCINES (#1)] Future Scheduled 1986 Hepatitis C screening [place] Hindu Test 00:00:00 (procedure) [code = 566440726] Encounters Start End Encounter Admission Attending Care Care Encounter Source Date/Time Date/Time Type Type Clinicians Facility Department ID 2020-08-19 2020-08-19 Outpatient ARABELLA [facility] [id number] [place] 00:00:00 00:00:00 GRACIELA [address] 2020-08-09 2020-08-09 Office STEFAN Huizar [id number] 09:50:30 10:20:57 Visit Juanita Eaton [id number] Ming [id number] Shahid [id number] nal 085 [facility] 2020-07-29 2020-07-29 Outpatient [facility] [id number] [place] 00:00:00 00:00:[address] 2019-12-25 2019-12-25 Emergency SCHEMIDT, [facility] [id number] [place] 00:00:00 00:00:00 RAYMUNDO [address] 2019-10-01 2019-10-01 Emergency MANTENA, [facility] [id number] [place] 00:00:00 00:00:00 SETH [address] 2019-07-31 2019-07-31 Emergency MICHAEL, [facility] 064 [id number] [place] 00:00:00 00:00:00 BETTY [address] Results Test Description Test Time Test Comments Results Result [facility] e Comments XR Chest 2 Vw 2019-09-18 Shine M[place] [address] 17:55:23 - 10/01/2019 5:58 PM CDT EXAMINATION: XR CHEST 2 VWCLINICAL HISTORY: sobCOMPARISON: To previous study from 09/21/2017IMPRESSION:The cardiomediastinal silhouette is normal in appearance.The lungs are clear. There is no evidence of consolidation, congestion, or pneumothorax.A pleural effusion is not present.Visualized skeletal structures demonstrate no definite abnormality.The lungs are severely hyperinflated consistent with emphysematous changes.[id number]
[2020-08-20 07:09] LABS: Basophils % 0.7 % (0-1.3); Hematocrit 42.9 % (39.6-49.0); MPV 8.8 fL (7.6-11.3); RBC Red Blood Cell Count 4.63 M/uL (4.33-5.43)
[2020-08-20] MEDS ORDERED: METHYLPREDNISOLONE 125 MG INJ ONE (07:09)
[2020-08-20] MEDS ORDERED: LEVALBUTEROL 1.25 MG/3 ML NEB ONE (07:10)
[2020-08-20] MEDS ORDERED: NA CHLORIDE 0.9% 1,000 ML ONE (07:10)
[2020-08-20] MEDS ORDERED: ACETAMINOPHEN 500 MG TAB ONE (07:11)
--- NOTE | 2020-08-20 07:17 | RAD REPORT ---
EXAM DESCRIPTION: RAD - Chest Single View - 08/20/2020 6:54 am CLINICAL HISTORY: Cough;COPD COMPARISON: Portable June 11 TECHNIQUE: AP portable chest image was obtained 08/20/2020 6:54 am . FINDINGS: Chronic interstitial opacification present, accentuated slightly by the low lung volume co mpared earlier study. No focal lung parenchymal process. Heart and vasculature are normal. No measura ble pleural effusion and no pneumothorax. No acute bony abnormality seen. No acute aortic findings newby spected. IMPRESSION: No acute cardiopulmonary process. No significant change from comparison study.
[2020-08-20 07:21] LABS: BUN Blood Urea Nitrogen 8 mg/dL (7-18); Bicarbonate 26 mmol/L (21-32); Glucose Level 98 mg/dL (74-106); Potassium 3.7 mmol/L (3.5-5.1); Sodium Level 140 mmol/L (136-145)
--- NOTE | 2020-08-20 08:01 | ER ---
Nurse's Notes [facility] Name: Daryn Ramos Jr Age: 49 yrs Sex: Male : 1970 Arrival Date: 08/20/2020 Time: 06:15 Bed 8 Private MD: Diagnosis: Chronic obstructive pulmonary disease with (acute) exacerbation Presentation: 08/20 06:38 Chief complaint: Patient states: i had my second covid shot (pfizer) yesterday and few mg2 hours later i have body aches and fever and my O2 is down to 92%. normally i am 96%. denies shortness of breath and cough. Coronavirus screen: Client denies travel out of the [place] in the last 14 days. Ebola Screen: No symptoms or risks identified at this time. Initial Sepsis Screen: Does the patient meet any 2 criteria? Temp <36.0*C (96.8*F)) or > 38.3*C (100.9*F). HR > 90 bpm. No. Patient's initial sepsis screen is negative. Does the patient have a suspected source of infection?. Risk Assessment: Do you want to hurt yourself or someone else? Patient reports no desire to harm self or others. Onset of symptoms was August 20, 2020. 06:38 Method Of Arrival: Ambulatory mg2 06:38 Acuity: SALEEM 3 mg2 Triage Assessment: 06:43 General: Appears in no apparent distress. comfortable, Behavior is calm, cooperative. mg2 Pain: Complains of pain in whole body. EENT: No signs and/or symptoms were reported regarding the EENT system. Neuro: Level of Consciousness is awake, alert, obeys commands, Oriented to person, place, time, situation. Cardiovascular: Capillary refill < 3 seconds Patient's skin is warm and dry. Respiratory: Airway is patent. GI: No signs and/or symptoms were reported involving the gastrointestinal system. : No signs and/or symptoms were reported regarding the genitourinary system. Derm: No signs and/or symptoms reported regarding the dermatologic system. Musculoskeletal: Circulation, motion, and sensation intact. Capillary refill < 3 seconds. Historical: - Allergies: 06:42 cats/dogs; mg2 06:42 EGG/POULTRY; mg2 06:42 PENICILLINS; mg2 - Home Meds: 06:42 Albuterol Inhl [Active]; mg2 - PMHx: 06:42 Anxiety; Asthma; COPD; mg2 - PSHx: 06:42 None; mg2 - Immunization history:: Client reports receiving the 2nd dose of the Covid vaccine, Date received: August 19, 2020. - Social history:: Smoking status: Patient reports the use of cigarette tobacco products, smokes one pack cigarettes per day. - Family history:: not pertinent. - Hospitalizations: : No recent hospitalization is reported. Screenin:45 Abuse screen: Denies threats or abuse. Denies injuries from another. Nutritional mg2 screening: No deficits noted. Tuberculosis screening: No symptoms or risk factors identified. 07:12 Fall Risk IV access (20 points). mg2 Assessment: 06:44 Reassessment: see triage note. mg2 07:25 General: Appears in no apparent distress. comfortable, slender, well developed, sv Behavior is calm, cooperative, appropriate for age. Pain: Denies pain. Neuro: Level of Consciousness is awake, alert, obeys commands, Oriented to person, place, time, situation, Moves all extremities. Full function Gait is steady, Speech is normal. Cardiovascular: Patient's skin is warm and dry. Respiratory: Reports improvement with breathing Airway is patent Respiratory effort is even, unlabored, Respiratory pattern is regular, symmetrical. Derm: Skin is pink, warm \T\ dry. 07:30 Reassessment: Patient appears in no apparent distress at this time. Patient and/or sv family updated on plan of care and expected duration. Pain level reassessed. Patient is alert, oriented x 3, equal unlabored respirations, skin warm/dry/pink. Patient states feeling better. Patient states symptoms have improved. 08:52 Reassessment: Patient appears in no apparent distress at this time. Patient and/or sv family updated on plan of care and expected duration. Pain level reassessed. Patient is alert, oriented x 3, equal unlabored respirations, skin warm/dry/pink. Patient states feeling better. Patient states symptoms have improved. Vital Signs: 06:38 BP 122 / 82; Pulse 104; Resp 18; Temp 100.8; Pulse Ox 97% on R/A; mg2 ED Course: 06:15 Patient arrived in ED. bp1 06:26 Jagdish Crespo MD is Attending Physician. rn 06:38 Gardose, Keagan, RN is Primary Nurse. mg2 06:42 Triage completed. mg2 06:44 Arm band placed on right wrist. mg2 06:45 Inserted saline lock: 20 gauge in right antecubital area, using aseptic technique. mg2 Blood collected. 06:54 XRAY Chest (1 view) In Process Unspecified. EDMS 07:10 Primary Nurse role handed off by Keagan Morgan, FILIBERTO sv 07:10 Celi Ibarra, FILIBERTO is Primary Nurse. sv 07:11 Patient has correct armband on for positive identification. Pulse ox on. NIBP on. Door mg2 closed. 07:11 No provider procedures requiring assistance completed. mg2 07:18 Basic Metabolic Panel Sent. sv 07:18 CBC with Diff Sent. sv 07:39 Awaiting lab results. sv Administered Medications: 07:10 Drug: NS 0.9% 1000 ml Route: IV; Rate: 1000 ml; Site: right antecubital; mg2 07:10 Drug: Tylenol 1000 mg Route: PO; mg2 07:18 Follow up: Response: No adverse reaction sv 07:11 Drug: SOLU-Medrol (methylPrednisoLONE) 125 mg Route: IVP; Site: right antecubital; mg2 07:18 Follow up: Response: No adverse reaction sv 07:11 Drug: Xopenex (levalbuterol) (3) 1.25 mg Route: Inhalation; mg2 Outcome: 08:01 Discharge ordered by . rn 08:52 Patient left the ED. sv 08:52 Discharged to home ambulatory. sv 08:52 Condition: stable 08:52 Condition: improved 08:52 Discharge instructions given to patient, Instructed on discharge instructions, follow up and referral plans. medication usage, Demonstrated understanding of instructions, follow-up care, medications, Prescriptions given X 2. Signatures: Dispatcher [employer] [facility] Celi Ibarra, Jagdish Medellin RN, MD MD rn Gardose, Michele, RN RN mg2 Sulema Villa bp1
--- NOTE | 2020-08-20 08:02 | EDPHYS ---
Physician Documentation [facility] Name: Daryn Ramos Jr Age: 49 yrs Sex: Male : 1970 Arrival Date: 08/20/2020 Time: 06:15 Bed 8 Private MD: ED Physician Jagdish Crespo HPI: 08/20 06:59 This 49 yrs old Male presents to ER via Ambulatory with complaints of Fever, rn Shortness Of Breath, COPD Exacerbation. 06:59 The patient reports fever, that was measured at 100.8 degrees Fahrenheit. Onset: The rn symptoms/episode began/occurred yesterday. Modifying factors: there are no obvious modifying factors. Associated signs and symptoms: Pertinent positives: cough, shortness of breath, Pertinent negatives: abdominal pain, altered mental status, chest pain, headache, hemoptysis. Severity of symptoms: At their worst the symptoms were mild in the emergency department the symptoms are unchanged. The patient has experienced similar episodes in the past. The patient has not recently seen a physician. Reports had 2nd COVID vaccine shot yesterday, later in day felt fever, chills, cough, mild sob. No vomiting/diarrhea. + muscle aches and fatigue. . Historical: - Allergies: 06:42 cats/dogs; mg2 06:42 EGG/POULTRY; mg2 06:42 PENICILLINS; mg2 - Home Meds: 06:42 Albuterol Inhl [Active]; mg2 - PMHx: 06:42 Anxiety; Asthma; COPD; mg2 - PSHx: 06:42 None; mg2 - Immunization history:: Client reports receiving the 2nd dose of the Covid vaccine, Date received: August 19, 2020. - Social history:: Smoking status: Patient reports the use of cigarette tobacco products, smokes one pack cigarettes per day. - Family history:: not pertinent. - Hospitalizations: : No recent hospitalization is reported. ROS: 06:59 Constitutional: Negative for fever, chills, and weight loss, Eyes: Negative for injury, rn pain, redness, and discharge, Neck: Negative for injury, pain, and swelling, Cardiovascular: Negative for chest pain, palpitations, and edema, Respiratory: Negative for pleuritic chest pain Abdomen/GI: Negative for abdominal pain, nausea, vomiting, diarrhea, and constipation, Back: Negative for injury and pain, MS/Extremity: Negative for injury and deformity, Skin: Negative for injury, rash, and discoloration, Neuro: Negative for numbness, tingling, and seizure. Exam: 06:59 Constitutional: This is a well developed, well nourished patient who is awake, alert, rn and in no acute distress. Head/Face: Normocephalic, atraumatic. ENT: dry MM, no stridor Cardiovascular: Tachycardic, regular Respiratory: no retractions, + faint exp wheezing bilaterally Abdomen/GI: soft, non-tender Skin: Warm, dry MS/ Extremity: Pulses equal, no cyanosis. Neurovascular intact. Full, normal range of motion. Equal circumference. Neuro: Awake and alert, GCS 15, oriented to person, place, time, and situation. Cranial nerves II-XII grossly intact. Motor strength 5/5 in all extremities. Sensory grossly intact. Cerebellar exam normal. Normal gait. Vital Signs: 06:38 BP 122 / 82; Pulse 104; Resp 18; Temp 100.8; Pulse Ox 97% on R/A; mg2 MDM: 06:26 Patient medically screened. rn 07:57 Differential diagnosis: viral Infection, bacterial infection, URI, reaction to COVID rn vaccine. Data reviewed: vital signs, nurses notes, lab test result(s), radiologic studies, plain films, and as a result, I will discharge patient. Counseling: I had a detailed discussion with the patient and/or guardian regarding: the historical points, exam findings, and any diagnostic results supporting the discharge/admit diagnosis, lab results, radiology results, the need for outpatient follow up, to return to the emergency department if symptoms worsen or persist or if there are any questions or concerns that arise at home. Response to treatment: the patient's symptoms have markedly improved after treatment, and as a result, I will discharge patient. Special discussion: I discussed with the patient/guardian in detail that at this point there is no indication for admission to the hospital. It is understood, however, that if the symptoms persist or worsen the patient needs to return immediately for re-evaluation. ED course: Most likely reaction to COVID vaccine given started on day of 2nd vaccine dose, clear CXR, no oxygen requirement. Will dc home pending COVID result. Will dc home with steroids and albuterol for COPD exacerbation.. 08/20 06:43 Order name: CBC with Diff rn 05/04 06:43 Order name: Basic Metabolic Panel rn 08/20 06:43 Order name: Procalcitonin rn 08/20 06:43 Order name: CBC with Automated Diff; Complete Time: 07:17 EDMS 08/20 06:43 Order name: Basic Metabolic Panel; Complete Time: 07:32 EDMS 08/20 06:26 Order name: XRAY Chest (1 view); Complete Time: 07:18 rn 08/20 06:43 Order name: IV Start; Complete Time: 07:11 rn 08/20 08:34 Order name: SARS-COV-2 RT PCR EDMS Administered Medications: 07:10 Drug: NS 0.9% 1000 ml Route: IV; Rate: 1000 ml; Site: right antecubital; mg2 07:10 Drug: Tylenol 1000 mg Route: PO; mg2 07:18 Follow up: Response: No adverse reaction sv 07:11 Drug: SOLU-Medrol (methylPrednisoLONE) 125 mg Route: IVP; Site: right antecubital; mg2 07:18 Follow up: Response: No adverse reaction sv 07:11 Drug: Xopenex (levalbuterol) (3) 1.25 mg Route: Inhalation; mg2 Disposition: 08/20/20 08:01 Discharged to Home. Impression: Chronic obstructive pulmonary disease with (acute) exacerbation. - Condition is Stable. - Discharge Instructions: Fever, Adult, Chronic Obstructive Pulmonary Disease Exacerbation. - Prescriptions for Prednisone 20 mg Oral Tablet - take 3 tablet by ORAL route once daily for 5 days; 15 tablet. Albuterol Sulfate 90 mcg/actuation - inhale 1-2 puff by INHALATION route every 4-6 hours; 1 Inhaler. - Medication Reconciliation Form, Thank You Letter, Antibiotic Education, Prescription Opioid Use form. - Follow up: Private Physician; When: As needed; Reason: Recheck today's complaints, Re-evaluation by your physician. - Problem is new. - Symptoms have improved. Signatures: Dispatcher [employer] [facility]WA Celi Ibarra RN RN sv Nieto, Roman, MD MD rn Gardose, Michele, RN RN mg2 Corrections: (The following items were deleted from the chart) 07:51 06:44 CORONAVIRUS+MR.LAB.BRZ ordered. [facility] EDWA 08:52 08:01 08/20/2020 08:01 Discharged to Home. Impression: Chronic obstructive pulmonary sv disease with (acute) exacerbation. Condition is Stable. Forms are Medication Reconciliation Form, Thank You Letter, Antibiotic Education, Prescription Opioid Use. Follow up: Private Physician; When: As needed; Reason: Recheck today's complaints, Re-evaluation by your physician. Problem is new. Symptoms have improved. rn
[2020-08-20 08:58] VITALS: BP 122/82; TEMP 100.8; O2SAT 97
== END 2020-08-20 08:52 | disposition home or self-care (01) ==
LOC: ER 06:13
DX: J44.1 Chronic obstructive pulmonary disease with (acute) exacerbation (principal); Z20.822 Contact with and (suspected) exposure to COVID-19; F17.210 Nicotine dependence, cigarettes, uncomplicated; Z88.0 Allergy status to penicillin; Z91.012 Allergy to eggs; Z91.018 Allergy to other foods
CPT/HCPCS: 85025; 80048; 36415; 84145; 71045; U0003; J7030; J2930; 96374; 99284

== ENCOUNTER 2020-11-08 02:04 | Emergency (ER) | payer OTHER ==
--- OUTSIDE RECORDS SUMMARY | 2020-11-08 02:07 | XMS REPORT | Continuity of Care Document ---
:1970 Author Organization [facility] t Address [address] [place] [address] Care Team Providers Name Role Phone Asked, Pcp Primary Care Physician Unavailable Lavinia Friedman MD Attending Clinician Steve DO Attending Clinician Arabella CLARKE PIraida Attending Clinician Gaye DO Attending Clinician Ivan Louis MD Attending Clinician MICHAEL Attending Clinician Unavailable Payers Payer Name Policy Type Policy Effective Date Expiration Date Sour ce Number COMMERCIAL [id number] 2019 [place] MISCMISC 00:00:00 [facility] COMMERCIALxxxxx7 77-Pre sentCommercial Problems This patient has [...] Active Unknown [place] ty to [address] [facility] adverse 00:00: st reaction 00 s to drug Penicill Propensi Active Rash [place] ty to 09-21 [facility] adverse 00:00: st reaction 00 s to drug Cat Propensi Active Shortness Of [place] ty to Breath 09-21 Methodi adverse 00:00: st reaction 00 s to drug Social History Social Habit Start Date Stop Date Quantity Comments Source Exposure to Not sure [place] Metho dist SARS-CoV-2 (event) Sex Assigned At [facility] Cigarettes smoked 2019-12-25 2019-12-25 [place] [facility] current (pack per 00:00:00 00:00:00 day) - Reported Cigarette 2019-12-25 2019-12-25 [place] Method ist pack-years 00:00:00 00:00:00 Tobacco use and 2019-12-25 2019-12-25 Current user [place] [facility] exposure 00:00:00 00:00:00 Alcohol intake 2019-12-25 2019-12-25 Current [place] Me thodist 00:00:00 00:00:00 non-drinker of alcohol (finding) Alcohol Comment 2017-09-21 2017-09-21 former [facility] ethodist 00:00:00 00:00:00 Smoking Status Start Date Stop Date Source Current every day smoker 2020-11-07 00:00:00 [facility] Medications Ordered Filled Start Stop Current Ordering Indication Dosage Frequency Signature Comments Components Source Medication Medication Date Date Medication? Clinician (SIG) Name Name ALBUTEROL Yes Inhale by [facility] INHL 11-07 mouth via [facility] - 22:52: inhaler. [address] albuterol 2021- Yes 2{puff} Inhale 2 [facility] HFA 11-07 puffs by [facility] - (VENTOLIN 00:00: 23:59 mouth via [place] [facility] HFA) 90 00 :00 inhaler Center mcg/actuati every 4 on inhaler (four) hours as needed for Wheezing. methylPREDN 2020- Yes follow [facility] ISolone 11-07 package [facility] - (MEDROL 00:00: 23:59 directions Med ical DOSEPACK) 4 00 :00 . Center mg tablet AZITHROmyci 2020- Yes 250mg QD Take [address] n 11-07 tablet [facility] - (Zithromax 00:00: 23:59 (250 mg Med ical Z-Dexter) 250 00 :00 total) by Cent er MG tablet mouth daily for 5 days Take by mouth as directed.. albuterol 2017- Yes 1{ampul Q6H Take 1 Sonali ston (ACCUNEB) 6-05 e} ampule by Metho di 1.25 mg/3 17:38: nebulizati st mL 27 on every 6 nebulizer (six) solution hours as needed for wheezing. Immunizations Ordered Immunization Filled Immunization Date Status Commen ts Source Name Name PFIZER COVID-19 MRNA 2020-08-19 Completed [place] VACC[place] 00:[place]:00 [facility] PFIZER COVID-19 MRNA 2020-07-29 Completed [place] VACC[place] 00:00:00 [facility] Vital Signs Vital Name Observation Time Observation Value Comments Source Systolic blood 2020-11-07 22:50:00 136 mm[Hg] [facility] Diastolic blood 2020-11-07 22:50:00 83 mm[Hg] [facility] Heart rate 2020-11-07 22:50:00 76 /min [facility] Respiratory rate 2020-11-07 22:50:00 18 /min [facility] Oxygen saturation in 2020-11-07 22:50:00 99 /min [facility] - Arterial blood by Medical Ce nter Pulse oximetry Body temperature 2020-11-07 21:06:00 36.89 Ariadna [facility] Body height 2020-11-07 21:06:00 180.3 cm [facility] Body weight 2020-11-07 21:06:00 74.844 kg [facility] BMI 2020-11-07 21:06:00 23.01 kg/m2 [facility] Systolic blood 2020-11-07 18:00:00 130 mm[Hg] Hanna regan [facility] pressure Diastolic blood 2020-11-07 18:00:00 81 mm[Hg] Kendra on [facility] pressure Heart rate 2020-11-07 17:58:00 74 /min [facility] Body temperature 2020-11-07 17:58:00 36.89 Ariadna Tutu [facility] Respiratory rate 2020-11-07 17:58:00 16 /min Tutu mark anthony [facility] Body height 2020-11-07 17:58:00 180.3 cm Ede Lucas Oxygen saturation in 2020-11-07 17:58:00 97 /min Ede Lucas Arterial blood by Pulse oximetry Body weight 2019-12-25 14:25:00 72.576 kg Ede Lucas BMI 2019-12-25 14:25:00 22.32 kg/m2 Ede Lucas Procedures Procedure Date / Time Performed Performing Clinician Sourc e XR CHEST 2 VIEWS 2020-11-07 21:17:00 Lisa Stevenson [facility] Plan of Care Planned Activity Planned Date Details Comments Source Future Scheduled 2020-11-17 INFLUENZA VACCINE [place] [facility] Test 00:00:00 [code = INFLUENZA VACCINE] Future Scheduled 2018 COLONOSCOPY SCREENING [place] [facility] Test 00:00:00 [code = COLONOSCOPY SCREENING] Future Scheduled 2018 SHINGLES VACCINES [place] [facility] 00:00:00 (#1) [code = SHINGLES VACCINES (#1)] Future Scheduled 1986 Hepatitis C screening [place] [facility] Test 00:00:00 (procedure) [code = 335780682] Encounters Start End Encounter Admission Attending Care Care Encounter Source Date/Time Date/Time Type Type Clinicians Facility Department ID 2020-11-07 2020-11-07 Emergency [facility] [id number] [place] 00:00:00 00:00:00 SETH [address] 2020-08-19 2020-08-19 Outpatient ARABELLA [facility] [id number] [place] 00:00:00 00:00:00 GRACIELA [address] 2020-08-09 2020-08-09 Office STEFAN Huizar [id number] 09:50:30 10:20:57 Visit Juanita Eaton [id number] Ming [id number] Shahid [id number] nal 085 [facility] 2020-07-29 2020-07-29 Outpatient [facility] [id number] [place] 00:00:00 00:00:[address] 2019-12-25 2019-12-25 Emergency SCHEMIDT, [facility] [id number] [place] 00:00:00 00:00:00 RAYMUNDO [address] 2019-10-01 2019-10-01 Emergency MANTENA, [facility] [id number] [place] 00:00:00 00:00:00 SETH [address] 2019-07-31 2019-07-31 Emergency MICHAEL, [facility]4 [id number] [place] 00:00:00 00:00:[address] BETTY [address] Results Test Description Test Time Test Comments Results Result Sourc e Comments RAD, CHEST, 2 2020-10-18 Reason for VIEWS 2 exam:->WHEEZI 21:48:[address] exam:->[facility] 1970 Sex: M FINAL REPORT TECHNIQUE: Two views of the chest. INDICATION: 50-year-old man with wheezing and cough. COMPARISON: Chest radiograph 09/19/2013. FINDINGS: LINES/TUBES: None. LUNGS: Lungs are well inflated. No consolidation or pulmonary edema. PLEURA: No pleural effusion or pneumothorax. HEART AND MEDIASTINUM: Cardiomediastinal silhouette is within normal limits. BONES AND SOFT TISSUES: No acute osseous abnormality. Soft tissues are unremarkable. IMPRESSION:No acute cardiopulmonary abnormality. Signed: Yvette Marquezepkem Verified Date/Time: 11/07/2020 21:48:40 Reading Location: [address] Consult Reading Room chest 2 views 2020-10-18 Interface, External [facility] 2 Ris In - 11/07/2020 - Med ical 21:48:00 9:50 PM CDTFINAL Center REPORT TECHNIQUE: Two views of the chest. INDICATION: 50-year-old man with wheezing and cough. COMPARISON: Chest radiograph 09/19/2013. FINDINGS: LINES/TUBES: None. LUNGS: Lungs are well inflated. No consolidation or pulmonary edema. PLEURA: No pleural effusion or pneumothorax. HEART AND MEDIASTINUM: Cardiomediastinal silhouette is within normal limits. BONES AND SOFT TISSUES: No acute osseous abnormality. Soft tissues are unremarkable. IMPRESSION:No acute cardiopulmonary abnormality. Signed: Yvette Marquez MDReport Verified Date/Time: 11/07/2020 21:48:40 Reading Location: [facility] [id number] Consult Reading Room
[2020-11-08 03:34] LABS: Protime INR 1.03
[2020-11-08 03:35] LABS: Basophils % 0.8 % (0-1.3); Hematocrit 39.7 % (39.6-49.0); MPV 8.7 fL (7.6-11.3); RBC Red Blood Cell Count 4.27 M/uL (4.33-5.43)
[2020-11-08 03:44] LABS: Urine Blood Negative (Negative); Urine Glucose Negative (Negative); Urine Protein Negative (Negative); Urine Specific Gravity 1.015 (1.005-1.030)
[2020-11-08 03:47] LABS: Arterial Blood Carboxyhemoglob 3.4 % (0-1.5); Blood Gas Oxyhemoglobin 93.6 % (94-97)
[2020-11-08 03:49] LABS: ALT/SGPT 20 U/L (12-78); AST/SGOT 13 U/L (15-37); Albumin 3.4 g/dL (3.4-5.0); Alkaline Phosphatase 69 U/L (45-117); BUN Blood Urea Nitrogen 9 mg/dL (7-18); Bicarbonate 26 mmol/L (21-32); Bilirubin Direct 0.1 mg/dL (0-0.2); Bilirubin Total 0.3 mg/dL (0.2-1.0); Glucose Level 88 mg/dL (74-106); Magnesium 1.9 mg/dL (1.8-2.4); NT PRO-BNP 152 pg/mL (<125); Potassium 3.3 mmol/L (3.5-5.1); Protein, Total 6.2 g/dL (6.4-8.2); Sodium Level 142 mmol/L (136-145); Troponin (Emerg Dept Use Only) < 0.02 ng/mL (0.0-0.045)
[2020-11-08 03:58] LABS: Barbiturates NEGATIVE (NEGATIVE); Benzodiazepines NEGATIVE (NEGATIVE); Cocaine NEGATIVE (NEGATIVE); METHAMPHETAM NEGATIVE (NEGATIVE); Methadone NEGATIVE (NEGATIVE); Opiates NEGATIVE (NEGATIVE); Phencyclidine NEGATIVE (NEGATIVE); THC Cannibis NEGATIVE (NEGATIVE)
[2020-11-08] MEDS ORDERED: POTASSIUM CL SA 10 MEQ TAB PO ONE (04:33)
--- NOTE | 2020-11-08 06:28 | ER ---
Nurse's Notes [facility] Name: Daryn Ramos Jr Age: 50 yrs Sex: Male : 1970 Arrival Date: 11/08/2020 Time: 02:09 Bed 17 Private MD: Diagnosis: Chest pain. Upper respiratory infection. GERD Presentation: 11/08 02:28 Chief complaint: Patient states: I was at the [facility] bMobilized maurice today trying to get jb4 this issue resolved. They said I had Bronchitis. It does not feel like bronchitis, I feel like I have the flu. I took my nebulized albuterol treatment prior to coming tonight. They did not test me for Covid. I have had both my shots. My chest is also soar from it all. Coronavirus screen: Client denies travel out of the [place] in the last 14 days. Client presents with at least one sign or symptom that may indicate coronavirus-19. Standard/surgical mask placed on the client. Provider contacted for isolation considerations. Ebola Screen: No symptoms or risks identified at this time. Initial Sepsis Screen: Does the patient meet any 2 criteria? HR > 90 bpm. Yes Does the patient have a suspected source of infection? Yes:. Risk Assessment: Do you want to hurt yourself or someone else? Patient reports no desire to harm self or others. Onset of symptoms was November 08, 2020. Transition of care: patient was not received from another setting of care. 02:28 Method Of Arrival: Wheelchair jb4 02:28 Acuity: SALEEM 3 jb4 Historical: - Allergies: 02:32 cats/dogs; jb4 02:32 EGG/POULTRY; jb4 02:32 PENICILLINS; jb4 - Home Meds: 02:32 Albuterol Inhl [Active]; albuterol sulfate Oral [Active]; Prednisone Oral [Active]; jb4 Zithromax Oral [Active]; - PMHx: 02:32 Anxiety; Asthma; COPD; jb4 - Immunization history:: Adult Immunizations up to date. - Social history:: Smoking status: Patient reports the use of cigarette tobacco products, smokes one-half pack cigarettes per day. Screenin:30 Abuse screen: Denies threats or abuse. Nutritional screening: No deficits noted. jb4 Tuberculosis screening: No symptoms or risk factors identified. Fall Risk None identified. Assessment: 02:30 General: Appears in no apparent distress. uncomfortable, Behavior is calm, cooperative, jb4 appropriate for age. Pain: Complains of pain in chest Pain does not radiate. Pain currently is 8 out of 10 on a pain scale. Neuro: Level of Consciousness is awake, alert, obeys commands, Oriented to person, place, time, situation. Cardiovascular: Patient's skin is warm and dry. Respiratory: Airway is patent Respiratory effort is even, unlabored, Respiratory pattern is regular, symmetrical. GI: No signs and/or symptoms were reported involving the gastrointestinal system. : No signs and/or symptoms were reported regarding the genitourinary system. EENT: No signs and/or symptoms were reported regarding the EENT system. Derm: Skin is intact, Skin is pink, warm \T\ dry. Musculoskeletal: Circulation, motion, and sensation intact. Range of motion: intact in all extremities. 03:30 Reassessment: Patient appears in no apparent distress at this time. Patient and/or jb4 family updated on plan of care and expected duration. Pain level reassessed. Patient is alert, oriented x 3, equal unlabored respirations, skin warm/dry/pink. 04:30 Reassessment: Patient and/or family updated on plan of care and expected duration. Pain jb4 level reassessed. Pt is resting in bed with eyes closed, respirations are even and unlabored with no s/s of pain or distress noted. 05:30 Reassessment: Patient appears in no apparent distress at this time. No changes from jb4 previously documented assessment. Patient and/or family updated on plan of care and expected duration. Pain level reassessed. 06:44 Reassessment: Patient appears in no apparent distress at this time. Patient and/or jb4 family updated on plan of care and expected duration. Pain level reassessed. Patient is alert, oriented x 3, equal unlabored respirations, skin warm/dry/pink. Vital Signs: 02:28 BP 116 / 79; Pulse 101; Resp 20; Temp 99.2(O); Pulse Ox 96% on R/A; Weight 72.57 kg; jb4 Height 5 ft. 11 in. (180.34 cm) (R); Pain 8/10; 02:49 BP 115 / 72; Pulse 78; Pulse Ox 95% ; ds4 04:15 BP 111 / 75; Pulse 70; Resp 16; Pulse Ox 99% on R/A; jb4 05:45 BP 102 / 76; Pulse 66; Resp 16; Pulse Ox 97% on R/A; jb4 06:30 BP 105 / 71; Pulse 68; Resp 16; Pulse Ox 100% on R/A; jb4 02:28 Body Mass Index 22.32 (72.57 kg, 180.34 cm) jb4 ED Course: 02:09 Patient arrived in ED. es 02:28 Govind Land, RN is Primary Nurse. jb4 02:31 Triage completed. jb4 02:32 Arm band placed on right wrist. jb4 03:02 Barry Sandoval MD is Attending Physician. pkl 03:23 XRAY Chest (1 view) In Process Unspecified. EDMS 06:32 IV discontinued, intact, bleeding controlled, No redness/swelling at site. Pressure ds4 dressing applied. 06:45 Patient has correct armband on for positive identification. Bed in low position. Call jb4 light in reach. Side rails up X 1. Pulse ox on. NIBP on. 06:45 No provider procedures requiring assistance completed. jb4 Administered Medications: 04:14 Drug: K-Dur (potassium chloride) 20 mEq Route: PO; jb4 04:59 Follow up: Response: No adverse reaction jb4 Outcome: 06:28 Discharge ordered by . pkl 06:45 Discharged to home ambulatory. jb4 06:45 Condition: stable 06:45 Discharge instructions given to patient, Instructed on discharge instructions, follow up and referral plans. medication usage, Demonstrated understanding of instructions, follow-up care, medications, Prescriptions given X 2. 06:48 Patient left the ED. jb4 Signatures: Dispatcher [employer] EDMS Barry Sandoval MD MD pkl Salyer, Edna es Swanson, Donovan ds4 Govind Land, RN RN jb4 Corrections: (The following items were deleted from the chart) 05:26 05:15 CORONAVIRUS+ drawn and sent. ds4 EDMS
--- NOTE | 2020-11-08 06:28 | EDPHYS ---
Physician Documentation [facility] Name: Daryn Ramos Jr Age: 50 yrs Sex: Male : 1970 Arrival Date: 11/08/2020 Time: 02:09 Bed 17 Private MD: ED Physician Barry Sandoval HPI: 11/08 03:30 This 50 yrs old Male presents to ER via Wheelchair with complaints of Chest pkl Congestion. 03:30 The patient or guardian reports chest pain that is located primarily in the substernal pkl area. Onset: today. The pain does not radiate. Associated signs and symptoms: Pertinent positives: cough. The chest pain is described as dull. The patient has been recently seen by a physician: Seen at [facility] and [facility] earlier today. Historical: - Allergies: 02:32 cats/dogs; jb4 02:32 EGG/POULTRY; jb4 02:32 PENICILLINS; jb4 - Home Meds: 02:32 Albuterol Inhl [Active]; albuterol sulfate Oral [Active]; Prednisone Oral [Active]; jb4 Zithromax Oral [Active]; - PMHx: 02:32 Anxiety; Asthma; COPD; jb4 - Immunization history:: Adult Immunizations up to date. - Social history:: Smoking status: Patient reports the use of cigarette tobacco products, smokes one-half pack cigarettes per day. ROS: 03:34 Eyes: Negative for injury, pain, redness, and discharge, ENT: Negative for injury, pkl pain, and discharge, Neck: Negative for injury, pain, and swelling, Cardiovascular: Negative for chest pain, palpitations, and edema. 03:34 Respiratory: Positive for cough, with no reported sputum. 03:34 Abdomen/GI: Negative for abdominal pain, nausea, vomiting, and diarrhea. 03:34 Back: Negative for acute changes. 03:34 : Negative for urinary symptoms. 03:34 MS/extremity: Negative for acute changes. 03:34 Skin: Negative for rash. 03:34 Neuro: Negative for altered mental status. Exam: 03:34 Head/Face: Normocephalic, atraumatic. Eyes: Pupils equal round and reactive to light, pkl extra-ocular motions intact. Lids and lashes normal. Conjunctiva and sclera are non-icteric and not injected. Cornea within normal limits. Periorbital areas with no swelling, redness, or edema. ENT: Nares patent. No nasal discharge, no septal abnormalities noted. Tympanic membranes are normal and external auditory canals are clear. Oropharynx with no redness, swelling, or masses, exudates, or evidence of obstruction, uvula midline. Mucous membranes moist. Neck: Trachea midline, no thyromegaly or masses palpated, and no cervical lymphadenopathy. Supple, full range of motion without nuchal rigidity, or vertebral point tenderness. No Meningismus. Chest/axilla: Normal chest wall appearance and motion. Nontender with no deformity. No lesions are appreciated. Cardiovascular: Regular rate and rhythm with a normal S1 and S2. No gallops, murmurs, or rubs. Normal PMI, no JVD. No pulse deficits. Respiratory: Lungs have equal breath sounds bilaterally, clear to auscultation and percussion. No rales, rhonchi or wheezes noted. No increased work of breathing, no retractions or nasal flaring. Abdomen/GI: Soft, non-tender, with normal bowel sounds. No distension or tympany. No guarding or rebound. No evidence of tenderness throughout. Back: No spinal tenderness. No costovertebral tenderness. Full range of motion. Skin: Warm, dry with normal turgor. Normal color with no rashes, no lesions, and no evidence of cellulitis. MS/ Extremity: Pulses equal, no cyanosis. Neurovascular intact. Full, normal range of motion. Neuro: Awake and alert, GCS 15, oriented to person, place, time, and situation. Cranial nerves II-XII grossly intact. Motor strength 5/5 in all extremities. Sensory grossly intact. Cerebellar exam normal. Normal gait. Vital Signs: 02:28 BP 116 / 79; Pulse 101; Resp 20; Temp 99.2(O); Pulse Ox 96% on R/A; Weight 72.57 kg; jb4 Height 5 ft. 11 in. (180.34 cm) (R); Pain 8/10; 02:49 BP 115 / 72; Pulse 78; Pulse Ox 95% ; ds4 04:15 BP 111 / 75; Pulse 70; Resp 16; Pulse Ox 99% on R/A; jb4 05:45 BP 102 / 76; Pulse 66; Resp 16; Pulse Ox 97% on R/A; jb4 06:30 BP 105 / 71; Pulse 68; Resp 16; Pulse Ox 100% on R/A; jb4 02:28 Body Mass Index 22.32 (72.57 kg, 180.34 cm) jb4 MDM: 03:02 Patient medically screened. pkl 06:16 Data reviewed: vital signs, nurses notes, lab test result(s), EKG, radiologic studies, pkl plain films. 06:23 ED course: Discussed lab, EKG and imaging studies with patient. Advised to follow up pkl with PCP in 2 to 3 days. Patient understood instructions. 11/08 03:08 Order name: Basic Metabolic Panel pkl 11/08 03:08 Order name: CBC with Diff; Complete Time: 03:52 pkl 11/08 03:08 Order name: LFT's; Complete Time: 03:52 pkl 11/08 03:08 Order name: Magnesium; Complete Time: 03:52 pkl 11/08 03:08 Order name: NT PRO-BNP; Complete Time: 03:52 pkl 11/08 03:08 Order name: PT-INR; Complete Time: 03:52 pkl 11/08 03:08 Order name: Troponin (emerg Dept Use Only); Complete Time: 03:52 pkl 11/08 03:08 Order name: Strep; Complete Time: 04:07 pkl 11/08 03:09 Order name: Basic Metabolic Panel; Complete Time: 03:52 EDMS 11/08 03:29 Order name: D-Dimer; Complete Time: 04:07 pkl 11/08 03:30 Order name: ABG; Complete Time: 03:52 pkl 11/08 03:34 Order name: UDS pkl 11/08 03:34 Order name: Urine Drug Screen; Complete Time: 04:07 EDMS 11/08 03:08 Order name: XRAY Chest (1 view) pkl 11/08 03:08 Order name: EKG; Complete Time: 03:09 pkl 11/08 03:08 Order name: Cardiac monitoring; Complete Time: 03:26 pkl 11/08 03:08 Order name: EKG - Nurse/Tech; Complete Time: 03:26 pkl 11/08 03:08 Order name: IV Saline Lock; Complete Time: 03:20 pkl 07/23 03:08 Order name: Labs collected and sent; Complete Time: 03:20 pkl 11/08 03:08 Order name: O2 Per Protocol; Complete Time: 03:20 pkl 11/08 03:08 Order name: O2 Sat Monitoring; Complete Time: 03:20 pkl 11/08 03:43 Order name: Urine Dipstick-Ancillary; Complete Time: 03:52 EDMS 11/08 04:02 Order name: Throat Culture EDMS 11/08 06:22 Order name: SARS-COV-2 RT PCR; Complete Time: 06:22 EDMS Administered Medications: 04:14 Drug: K-Dur (potassium chloride) 20 mEq Route: PO; jb4 04:59 Follow up: Response: No adverse reaction jb4 Disposition Summary: 11/08/20 06:28 Discharge Ordered Location: Home pkl Problem: new pkl Symptoms: have improved pkl Condition: Stable pkl Diagnosis - Chest pain. Upper respiratory infection. GERD pkl Followup: pkl - With: Private Physician - When: 2 - 3 days - Reason: Re-evaluation by your physician Discharge Instructions: - Discharge Summary Sheet pkl Forms: - Medication Reconciliation Form pkl - Thank You Letter pkl - Work release form pkl - Antibiotic Education pkl - Prescription Opioid Use pkl Prescriptions: - Protonix 40 mg Oral tablet,delayed release (DR/EC) - take 1 tablet by ORAL route once daily; 15 tablet; Refills: 0, Product pkl Selection Permitted - Zithromax Z-Dexter 250 mg Oral Tablet - take 1 tablet by ORAL route as directed for 5 days Day 1 - take two (2) tablets pkl one time. Day 2, 3, 4 , 5 take one (1) tablet once daily.; 6 tablet; Refills: 0, Product Selection Permitted Signatures: Dispatcher [employer] EDBarry Carrera MD MD pkl Govind Land, RN RN jb4 Corrections: (The following items were deleted from the chart) 05:26 04:54 CORONAVIRUS+ ordered. EDID EDMS
[2020-11-08 06:54] VITALS: TEMP 99.2
[2020-11-08 06:59] VITALS: BP 105/71; O2SAT 100
--- NOTE | 2020-11-08 08:11 | RAD REPORT ---
EXAM DESCRIPTION: RAD - Chest Single View - 11/08/2020 3:23 am CLINICAL HISTORY: Cough;Chest pain COMPARISON: August 20 TECHNIQUE: AP portable chest image was obtained 11/08/2020 3:23 am . FINDINGS: Lower lung volume from comparison accentuates the interstitial pattern. A minimal intersti tial edema or infiltrate could be masked. No consolidation or mass lesions seen. No significant degre e of failure or volume overload seen. Heart and vasculature are normal. No measurable pleural effusion and no pneumothorax. No acute bony abnormality seen. No acute aortic findings suspected. IMPRESSION: No acute cardiopulmonary process. Accentuated interstitial pattern due to low lung volume could potentially mask a mild interstitial ed kay or infiltrate.
== END 2020-11-08 06:48 | disposition home or self-care (01) ==
LOC: ER 02:04
DX: J06.9 Acute upper respiratory infection, unspecified (principal); K21.9 Gastro-esophageal reflux disease without esophagitis; J44.9 Chronic obstructive pulmonary disease, unspecified; J30.81 Allergic rhinitis due to animal (cat) (dog) hair and dander; Z88.0 Allergy status to penicillin; Z20.822 Contact with and (suspected) exposure to COVID-19; Z91.012 Allergy to eggs; Z91.018 Allergy to other foods; Z91.048 Other nonmedicinal substance allergy status
CPT/HCPCS: 93005; 87070; 85025; 80048; 36415; 83735; 85610; 85379; 80076; 87081; 81003; 84484; 83880; 80307; 71045; 82805; 99284; U0003

== ENCOUNTER 2020-11-08 08:44 | Emergency (ER) | payer OTHER ==
--- OUTSIDE RECORDS SUMMARY | 2020-11-08 08:47 | XMS REPORT | Continuity of Care Document ---
:1970 Author Organization [facility] t Address [address] [place] [address] Care Team Providers Name Role Phone Pcp MD Primary Care Physician Unavailable Lavinia Friedman MD Attending Clinician Steve DO Attending Clinician Antwan Skinner MD Attending Clinician Gaye DO Attending Clinician Ivan Louis MD Attending Clinician MICHAEL Attending Clinician Unavailable Payers Payer Name Policy Type Policy Effective Date Expiration Date Sour ce Number COMMERCIAL [id number] 2019 [place] MISCMISC 00:00:00 [facility] COMMERCIALxxxxx7 77- sentCommercial Problems This patient has no known [...] to drug Cat Propensi Active Shortness Of Sony slade Dander ty to Breath 05 Methodi adverse 00:00: st reaction 00 s to drug Social History Social Habit Start Date Stop Date Quantity Comments Source Exposure to Not sure [place] Metho dist SARS-CoV-2 (event) Cigarettes smoked 2019-12-25 2019-12-25 [facility] current (pack per 00:00:00 00:00:00 day) - Reported Cigarette 2019-12-25 2019-12-25 Mera Method ist pack-years 00:00:00 00:00:00 Tobacco use and 2019-12-25 2019-12-25 Current user [place] [facility] exposure 00:00:00 00:00:00 Alcohol intake 2019-12-25 2019-12-25 Current [place] Me thodist 00:00:00 00:00:00 non-drinker of alcohol (finding) Alcohol Comment 2017-09-21 2017-09-21 former [place] Maggie ethodist 00:00:00 00:00:00 Sex Assigned At [birth year] [facility] ethodist 00:00:00 00:00:00 Smoking Status Start Date Stop Date Source Current every day smoker 2019-12-25 00:00:00 Sonali Lucas Medications Ordered Filled Start Stop Current Ordering Indication Dosage Frequency Signature Comments Components Source Medication Medication Date Date Medication? Clinician (SIG) Name Name ALBUTEROL Yes Inhale by [facility] St [facility] 11-07 [facility] al[facility]erol 2021- Yes 2{puff} Inhale 2 [facility] HFA 11-0722 puffs by [facility] - (VENTOLIN 00:00: 23:[address]ical HFA) 90 00 :00 inhaler Center mcg/actuati every 4 on inhaler (four) hours as needed for Wheezing. methylPREDN 2020- Yes follow [facility] ISolone 11-07 package [facility] - (MEDROL 00:00: 23:59 directions Med ical DOSEPACK) 4 00 :00 . Center mg tablet AZITHROmyci 2020- Yes 250mg QD Take [address] n 11-07 tablet [facility] - (Zithromax 00:00: 23:59 (250 mg Med ical Z-Dexter) 250 00 :00 total) by Cent er MG tablet mouth daily for 5 days Take by mouth as directed.. albuterol Yes 1{ampul Q6H Take 1 Sonali ston (ACCUNEB) 6-05 e} ampule by [facility] di 1.25 mg/3 17:38: nebulizati st mL 27 on every 6 nebulizer (six) solution hours as needed for wheezing. Immunizations Ordered Immunization Filled Immunization Date Status Commen ts Source Name Name PFIZER COVID-19 MRNA 2020-08-19 Completed [place] VACCINATION 00:00:00 [facility] PFIZER COVID-19 MRNA 2020-07-29 Completed [place] VACCINATION 00:00:00 [facility] Vital Signs Vital Name Observation Time Observation Value Comments Source Systolic blood 2020-11-07 22:50:00 136 mm[Hg] [facility] Diastolic blood 2020-11-07 22:50:00 83 mm[Hg] [facility] S [facility] Heart rate 2020-11-07 22:50:00 76 /min [facility] Respiratory rate 2020-11-07 22:50:00 18 /min [facility] Oxygen saturation in 2020-11-07 22:50:00 99 /min [facility] - Arterial blood by Medical Ce [facility]ter Pulse oximetry Body temperature 2020-11-07 21:06:00 36.89 Ariadna [facility] Body height 2020-11-07 21:06:00 180.3 cm [facility] Body weight 2020-11-07 21:06:00 74.844 kg [facility] BMI 2020-11-07 21:06:00 23.01 kg/m2 [facility] Systolic blood 2020-11-07 18:00:00 130 mm[Hg] [facility]anna n [facility] pressure Diastolic blood 2020-11-07 18:00:00 81 mm[Hg] Kendra on [facility] pressure Heart rate 2020-11-07 17:58:00 74 /min Ede Lucas Body temperature 2020-11-07 17:58:00 36.89 Ariadna Tutu Lucas Respiratory rate 2020-11-07 17:58:00 16 /min Tutu Lucas Body height 2020-11-07 17:58:00 180.3 cm Ede Lucas Oxygen saturation in 2020-11-07 17:58:00 97 /min Ede Lucas Arterial blood by Pulse oximetry Body weight 2019-12-25 14:25:00 72.576 kg Ede Kwonist BMI 2019-12-25 14:25:00 22.32 kg/m2 Ede [facility] Procedures Procedure Date / Time Performed Performing Clinician Sourc e XR CHEST 2 VIEWS 2020-11-07 21:17:00 Lisa Stevenson [facility] Plan of Care Planned Activity Planned Date Details Comments Source Future Scheduled 2020-11-17 INFLUENZA VACCINE [place] [facility] Test 00:00:00 [code = INFLUENZA VACCINE] Future Scheduled 2018 COLONOSCOPY SCREENING [place] [facility] Test 00:00:00 [code = COLONOSCOPY SCREENING] Future Scheduled 2018 SHINGLES VACCINES [place] [facility] Test 00:00:00 (#1) [code = SHINGLES VACCINES (#1)] Future Scheduled 1986 Hepatitis C screening [place] [facility] Test 00:00:00 (procedure) [code = 260070892] Encounters Start End Encounter Admission Attending Care Care Encounter Source Date/Time Date/Time Type Type Clinicians Facility Department ID 2020-11-07 2020-11-07 Emergency [facility], [facility] [id number] [place] 00:00:00 00:00:00 SETH [address] 2020-08-19 2020-08-19 Outpatient ARABELLA [facility] [id number] [place] 00:00:00 00:00:00 GRACIELA [address] 2020-08-09 2020-08-09 Office STEFAN Huizar [id number] 09:50:30 10:20:57 Visit Juanita Eaton [id number] Ming [id number] Shahid [id number] nal 5 [facility] 2020-07-29 2020-07-29 Outpatient [facility] [id number] [place] 00:00:00 00:00:[address] 2019-12-25 2019-12-25 Emergency SCHEMIDT, [facility] [id number] [place] 00:00:00 00:00:00 RAYMUNDO [address] 2019-10-01 2019-10-01 Emergency MANTENA, [facility] [id number] [place] 00:00:00 00:00:00 SETH [address] 2019-07-31 2019-07-31 Emergency MICHAEL, [facility] 064 [id number] [place] 00:00:00 00:00:[address] BETTY [address] Results Test Description Test Time Test Comments Results Result [facility] e Comments RAD, CHEST, 2 2020-10-18 Reason for VIEWS 2 exam:->WHEEZI 21:48:[address] NG[address] exam:->[facility] 1970 Sex: M FINAL [...] MDReport Verified Date/Time: 11/07/2020 21:48:40 Reading Location: [address] Consult Reading Room chest 2 views [...]
--- NOTE | 2020-11-08 09:30 | ER ---
Nurse's Notes [facility] Name: Daryn Ramos Jr Age: 50 yrs Sex: Male : 1970 Arrival Date: 11/08/2020 Time: 08:45 Bed 7 Private MD: Diagnosis: Acute bronchitis, unspecified Presentation: 11/08 09:02 Chief complaint: Patient states: was seen here last night for chest pain with sv breathing. "I feel like my lungs are burning every time I breath in." Pt reports getting labs and 2 chest xrays done last night. Pt states he feels like he could have a chemical exposure from the clove stuff that was placed in a recent tooth extraction. Pt stated that they gave him "some clove" stuff to put in his dry socket. Coronavirus screen: Client denies travel out of the [place] in the last 14 days. At this time, the client does not indicate any symptoms associated with coronavirus-19. Ebola Screen: No symptoms or risks identified at this time. Initial Sepsis Screen: Does the patient meet any 2 criteria? No. Patient's initial sepsis screen is negative. Does the patient have a suspected source of infection? No. Patient's initial sepsis screen is negative. Risk Assessment: Do you want to hurt yourself or someone else? Patient reports no desire to harm self or others. Onset of symptoms was November 07, 2020. 09:02 Method Of Arrival: Ambulatory sv 09:02 Acuity: SALEEM 4 sv Triage Assessment: 09:05 General: Appears in no apparent distress. uncomfortable, slender, Behavior is calm, sv cooperative, appropriate for age. Pain: Complains of pain in mouth. Neuro: Level of Consciousness is awake, alert, obeys commands, Oriented to person, place, time, situation, Moves all extremities. Full function Gait is steady, Speech is normal. Respiratory: Airway is patent Respiratory effort is even, unlabored, Respiratory pattern is regular, symmetrical. Derm: Skin is pink, warm \\T\\ dry. Historical: - Allergies: 09:04 cats/dogs; sv 09:04 EGG/POULTRY; sv 09:04 PENICILLINS; sv - PMHx: 09:04 Anxiety; Asthma; COPD; sv - Immunization history:: Adult Immunizations. - Social history:: Smoking status: . - Family history:: not pertinent. Screenin:05 Abuse screen: Denies threats or abuse. Denies injuries from another. Nutritional sv screening: No deficits noted. Tuberculosis screening: No symptoms or risk factors identified. Fall Risk None identified. Assessment: 09:38 Pain: Complains of pain in chest Pain does not radiate. Pain began 1 day ago. ap3 Cardiovascular: Reports chest pain, Denies shortness of breath. Vital Signs: 09:02 BP 120 / 75; Pulse 74; Resp 14; Pulse Ox 96% ; sv 09:37 BP 116 / 80; Pulse 85; Resp 19; Pulse Ox 100% on R/A; ap3 ED Course: 08:45 Patient arrived in ED. am2 08:46 Christian Crawley MD is Attending Physician. [facility] 09:00 Celi Ibarra, FILIBERTO is Primary Nurse. sv 09:04 Triage completed. sv 09:05 Arm band placed on. sv 09:05 Patient has correct armband on for positive identification. Placed in gown. Bed in low sv position. Call light in reach. secured entrance monitor on. Pulse ox on. NIBP on. Door closed. Head of bed elevated. 09:05 EKG done, by ED staff, reviewed by Christian Crawley MD. 3 09:06 ED physician to see patient. sv 09:38 No provider procedures requiring assistance completed. Patient did not have IV access ap3 during this emergency room visit. Patient maintains SpO2 saturation greater than 95% on room air. Administered Medications: 09:30 Drug: AZITHromycin 500 mg Route: PO; ap3 09:39 Follow up: Response: No adverse reaction ap3 Outcome: 09:30 Discharge ordered by . ma2 09:38 Discharged to home ambulatory. ap3 09:38 Condition: good 09:38 Discharge instructions given to patient, Instructed on discharge instructions, follow up and referral plans. Demonstrated understanding of instructions, follow-up care. 09:39 Patient left the ED. ap3 Signatures: Celi Ibarra, Melissa Garcia RN, Deanna [facility] Christian Crawley MD MD [facility] Melissa Kendrick RN RN ap3
--- NOTE | 2020-11-08 09:30 | EDPHYS ---
Physician Documentation [facility] Name: Daryn Ramos Jr Age: 50 yrs Sex: Male : 1970 Arrival Date: 11/08/2020 Time: 08:45 Bed 7 Private MD: ED Physician Christian Crawley HPI: 11/08 09:28 This 50 yrs old Male presents to ER via Ambulatory with complaints of cough. ma2 09:28 Onset: gradually, 1 day(s) ago. Associated signs and symptoms: Pertinent negatives: ma2 diaphoresis, headache, lower extremity swelling, lightheadedness, syncope, vomiting. Severity of pain: At its worst the pain was mild in the emergency department the pain is unchanged. The patient has not experienced similar symptoms in the past. Historical: - Allergies: 09:04 cats/dogs; sv 09:04 EGG/POULTRY; sv 09:04 PENICILLINS; sv - PMHx: 09:04 Anxiety; Asthma; COPD; sv - Immunization history:: Adult Immunizations. - Social history:: Smoking status: . - Family history:: not pertinent. ROS: 09:28 Constitutional: Negative for fever, chills, and weight loss. ma2 09:28 All other systems are negative. Exam: 09:28 Constitutional: This is a well developed, well nourished patient who is awake, alert, ma2 and in no acute distress. Head/Face: Normocephalic, atraumatic. Eyes: Pupils equal round and reactive to light, extra-ocular motions intact. Lids and lashes normal. Conjunctiva and sclera are non-icteric and not injected. Cornea within normal limits. Periorbital areas with no swelling, redness, or edema. ENT: Nares patent. No nasal discharge, no septal abnormalities noted. Tympanic membranes are normal and external auditory canals are clear. Oropharynx with no redness, swelling, or masses, exudates, or evidence of obstruction, uvula midline. Mucous membranes moist. Neck: Trachea midline, no thyromegaly or masses palpated, and no cervical lymphadenopathy. Supple, full range of motion without nuchal rigidity, or vertebral point tenderness. No Meningismus. Chest/axilla: Normal chest wall appearance and motion. Nontender with no deformity. No lesions are appreciated. Cardiovascular: Regular rate and rhythm with a normal S1 and S2. No gallops, murmurs, or rubs. Normal PMI, no JVD. No pulse deficits. Respiratory: Lungs have equal breath sounds bilaterally, clear to auscultation and percussion. No rales, rhonchi or wheezes noted. No increased work of breathing, no retractions or nasal flaring. Abdomen/GI: Soft, non-tender, with normal bowel sounds. No distension or tympany. No guarding or rebound. No evidence of tenderness throughout. Back: No spinal tenderness. No costovertebral tenderness. Full range of motion. MS/ Extremity: Pulses equal, no cyanosis. Neurovascular intact. Full, normal range of motion. Neuro: Awake and alert, GCS 15, oriented to person, place, time, and situation. Cranial nerves II-XII grossly intact. Motor strength 5/5 in all extremities. Sensory grossly intact. Cerebellar exam normal. Normal gait. Vital Signs: 09:02 BP 120 / 75; Pulse 74; Resp 14; Pulse Ox 96% ; sv 09:37 BP 116 / 80; Pulse 85; Resp 19; Pulse Ox 100% on R/A; ap3 MDM: 08:47 Patient medically screened. ma2 09:28 Differential diagnosis: chest wall pain, esophagitis, gastritis, gastroesophageal ma2 reflux disease (GERD), pericarditis. Data reviewed: vital signs, nurses notes. Counseling: I had a detailed discussion with the patient and/or guardian regarding: the historical points, exam findings, and any diagnostic results supporting the discharge/admit diagnosis, the presence of at least one elevated blood pressure reading (>120/80) during this emergency department visit, the need for outpatient follow up. 09:31 ED course: . ma2 09:31 ED course: Patient was here this morning, got complete work-up, everything was ma2 unremarkable, he had dental extraction 2 days ago, and that was complicated by a dry socket, he went to another dentist and had a dry socket filling, after the dry socket filling was placed, he started to have throat burning, and a dry cough,. Had complete work-up today that shows possible bronchitis and he was sent home on Z-Dexter, but he did not had a chance to fill it. He is back because pain is still persistent, and he would like the dry socket feeling to be removed. I contacted the dentist RJ at [facility], and he is happy to see him in 10 minutes. EKG is within normal limits, patient does not have chest pain.. 11/08 08:47 Order name: Basic Metabolic Panel ms2 11/08 08:47 Order name: EKG; Complete Time: 08:48 ms2 11/08 08:47 Order name: Cardiac monitoring; Complete Time: 09:06 [facility] 11/08 08:47 Order name: EKG - Nurse/Tech; Complete Time: 09:06 [facility] 11/08 08:47 Order name: O2 Per Protocol; Complete Time: 09:06 [facility] 11/08 08:47 Order name: O2 Sat Monitoring; Complete Time: 09:06 ma2 Administered Medications: 09:30 Drug: AZITHromycin 500 mg Route: PO; ap3 09:39 Follow up: Response: No adverse reaction ap3 Disposition Summary: 11/08/20 09:30 Discharge Ordered Location: Home ma2 Condition: Stable ma2 Diagnosis - Acute bronchitis, unspecified ma2 Followup: ma2 - With: Private Physician - When: Tomorrow - Reason: Continuance of care Discharge Instructions: - Discharge Summary Sheet ma2 - Acute Bronchitis, Adult ma2 Forms: - Medication Reconciliation Form ma2 - Thank You Letter ma2 - Antibiotic Education ma2 - Prescription Opioid Use ma2 Signatures: Dispatcher [employer] Celi Burciaga, RN RN Christian Crawley MD MD ma2 Melissa Kendrick RN RN ap3 Corrections: (The following items were deleted from the chart) 08:51 08:48 Chest Single View+RAD.RAD.BRZ ordered. EDMS EDMS 09:30 08:47 IV Saline Lock ordered. ma2 ap3 09:30 08:47 Labs collected and sent ordered. ma2 ap3
[2020-11-08 09:46] VITALS: BP 116/80; O2SAT 100
[2020-11-08] MEDS ORDERED: AZITHROMYCIN 250 MG TAB ONE (09:51)
--- NOTE | 2020-11-12 12:43 | EKG ---
Test Date: 2020-11-08 Test Time: 08:53:55 Fur Remodeler: TY MEASUREMENT RESULTS: Intervals: Rate: 85 TX: 168 QRSD: 90 QT: 346 QTc: 411 Dowell: P: 76 TX: 168 QRS: 82 T: 76 INTERPRETIVE STATEMENTS: Normal sinus rhythm Normal ECG Compared to ECG 11/08/2020 03:27:20 No significant changes Electronically Signed On 11-12-20 12:38:04 CDT by Enrique Rothman
== END 2020-11-08 09:39 | disposition home or self-care (01) ==
LOC: ER 08:44
DX: J20.9 Acute bronchitis, unspecified (principal); J30.81 Allergic rhinitis due to animal (cat) (dog) hair and dander; Z88.0 Allergy status to penicillin; Z91.012 Allergy to eggs; Z91.018 Allergy to other foods
CPT/HCPCS: 93005; 99285

== ENCOUNTER 2020-11-11 09:24 | Emergency (ER) | payer OTHER ==
--- OUTSIDE RECORDS SUMMARY | 2020-11-11 09:27 | XMS REPORT | Continuity of Care Document ---
:1970 Author Organization [facility] t Address [address] [place] [address] Care Team Providers Name Role Phone Pcp MD Primary Care Physician Unavailable Lavinia Friedman MD Attending Clinician Steve DO Attending Clinician Antwan Skinner MD Attending Clinician Gaye DO Attending Clinician Ivan Louis MD Attending Clinician MICHAEL Attending Clinician Unavailable Payers Payer Name Policy Type Policy Effective Date Expiration Date Sour ce Number COMMERCIAL [id number] 2019 [place] MISCMISC 00:00:00 Bahai [id number] 77-Pre sentCommercial Problems This patient has [...] Of [employer] slade Dander ty to Breath 09-21 Methodi adverse 00:00: st reaction 00 s to drug Social History Social Habit Start Date Stop Date Quantity Comments Source Exposure to Not sure [place] [facility] dist SARS-CoV-2 (event) Cigarettes smoked 2019-12-25 2019-12-25 [place] [facility]ai current (pack per 00:00:00 00:00:00 day) - Reported Cigarette 2019-12-25 2019-12-25 Mera Method ist pack-years 00:00:00 00:00:00 Tobacco use and 2019-12-25 2019-12-25 Current user [place] [facility]ai exposure 00:00:00 00:00:00 Alcohol intake 2019-12-25 2019-12-25 Current [place] Me thodist 00:00:00 00:00:00 non-drinker of alcohol (finding) Alcohol Comment 2017-09-21 2017-09-21 former [facility] ethodist 00:00:00 00:00:00 Sex Ass[birth year] At [birth year] [facility] ethodist 00:00:00 00:00:00 Smoking Status Start Date Stop Date Source Current every day smoker 2019-12-25 00:00:00 Sonali Lucas Medications Ordered Filled Start Stop Current Ordering Indication Dosage Frequency Signature Comments Components Source Medication Medication Date Date Medication? Clinician (SIG) Name Name ALBUTEROL Yes Inhale by [facility] 11-07 mouth [facility] albuterol 2021- Yes 2{puff} Inhale [address] [facility] [address] HFA 11-0722 puffs by [facility] - (VENTOLIN 00:00: 23:59 mouth via Il dical HFA) 90 00 :00 inhaler Center mcg/actuati every 4 on inhaler (four) hours as needed for Wheezing. methylPREDN 2020- Yes follow [facility] St ISolone 11-07 package [facility] - (MEDROL 00:00: [...] MRNA 2020-08-19 Completed [place] VACCINATION 00:00:00 [facility] PFIZER COVID-19 MRNA 2020-07-29 Completed [place] VACCINATION 00:00:00 [facility] Vital Signs Vital Name Observation Time Observation Value Comments Source Systolic blood 2020-11-07 22:50:00 136 mm[Hg] [facility] Diastolic blood 2020-11-07 22:50:00 83 mm[Hg] [facility] Heart rate 2020-11-07 22:50:00 76 /min [facility] Respiratory rate 2020-11-07 22:50:00 18 /min [facility] Oxygen saturation in 2020-11-07 22:50:00 99 /min [facility] - Arterial blood by Medical Ce nter Pulse oximetry Body temperature 2020-11-07 21:06:00 36.89 Ariadna [facility] Body height 2020-11-07 21:06:00 180.3 cm [facility] Body weight 2020-11-07 21:06:00 74.844 kg [facility] BMI 2020-11-07 21:06:00 23.01 kg/m2 [facility] Systolic blood 2020-11-07 18:00:00 130 mm[Hg] Hanna regan Bahai pressure Diastolic blood 2020-11-07 18:00:00 81 mm[Hg] Kendra moura Bahai pressure Heart rate 2020-11-07 17:58:00 74 /min Ede Lucas Body temperature 2020-11-07 17:58:00 36.89 Ariadna Tutu hop[place] [facility] Respiratory rate 2020-11-07 17:58:00 16 /min Tutu hop[facility] Body height 2020-11-07 17:58:00 180.3 cm Ede Lucas Oxygen saturation in 2020-11-07 17:58:00 97 /min Ede Lucas Arterial blood by Pulse oximetry Body weight 2019-12-25 14:25:00 72.576 kg Ede Lucas BMI 2019-12-25 14:25:00 22.32 kg/m2 Ede Lucas Procedures Procedure Date / Time Performed Performing Clinician Sourc e XR CHEST 2 VIEWS 2020-11-07 21:17:[address] [facility] Plan of Care Planned Activity Planned Date Details Comments Source Future Scheduled 2020-12-18 INFLUENZA VACCINE (#1) [facility] Test 00:00:00 [code = INFLUENZA Medical Ce nter VACCINE (#1)] Future Scheduled 2020-11-17 INFLUENZA VACCINE [place] [facility] Test 00:00:00 [code = INFLUENZA VACCINE] Future Scheduled 2020-04-[address] [facility] - Test 00:00:00 (12+) [code = [facility] DEPRESSION SCREENING (12+)] Future Scheduled 2018 SHINGLES VACCINES ([address] [facility] - Test 00:00:00 of 2) [code = SHINGLES Medic al Center VACCINES (1 of 2)] Future Scheduled 2018 COLONOSCOPY SCREENING [place] [facility] Test 00:00:00 [code = COLONOSCOPY SCREENING] Future Scheduled 2018 SHINGLES VACCINES (#1) [place] [facility] Test 00:00:00 [code = SHINGLES VACCINES (#1)] Future Scheduled 2003-10-[address] Test 00:00:00 (procedure) [code = [facility] [id number]] Future Scheduled 1987-10-25 DTAP/TDAP/TD VACCINES [facility] Test 00:00:00 (1 - Tdap) [code = Medical C enter DTAP/TDAP/TD VACCINES (1 - Tdap)] Future Scheduled 1986 HEPATITIS C [facility]CREENING [facility] Test 00:00:00 [code = HEPATITIS C Medical Center SCREENING] Future Scheduled 1986 Hepatitis C screening [place] [facility] Test 00:00:00 (procedure) [code = 014739871] Future Scheduled 1974 PNEUMOCOCCAL VACCINE BHAVANA Sousa - Test 00:00:00 0-64 YRS (1 of 1 - Medical C enter PPSV23) [code = PNEUMOCOCCAL VACCINE 0-64 YRS (1 of 1 - PPSV23)] Future Scheduled 1970 Screening for BHAVANA Cor[place] es - Test 00:00:00 malignant neoplasm of [facility] colon (procedure) [code = 429920991] Encounters Start End Encounter Admission Attending Care Care Encounter Source Date/Time Date/Time Type Type Clinicians Facility Department ID 2020-11-07 2020-11-07 Emergency [facility] 203 [id number] [place] 00:00:00 00:00:00 SETH 815 Method i 2020-08-19 2020-08-19 Outpatient ARABELLA, [facility] [id number] [place] 00:00:00 00:00:00 [facility]AC[facility]ELA [facility]6 [facility] 2020-08-09 2020-08-09 Office [facility] [id number] 09:50:30 10:20:57 Visit Juanita Eaton [id number] Ming [id number] Shahid [id number] nal 085 [facility] 2020-07-29 2020-07-29 Outpatient [facility] [id number] [place] 00:00:00 00:00:00 424 Method i 2019-12-25 2019-12-25 Emergency SCHEMIDT, [facility] [id number] [place] 00:00:00 00:00:00 RAYMUNDO 200 Method i 2019-10-01 2019-10-01 Emergency MANTENA, [place] [id number] [place] 00:00:00 00:00:00 SETH 653 Method i 2019-07-31 2019-07-31 Emergency MICHAEL, [facility] [id number] [place] 00:00:00 00:00:00 BETTY Haile Method i Results Test Description Test Time Test Comments Results Result Sourc e Comments RAD, CHEST, 2 2020-10-18 Reason for VIEWS 2 exam:->WHEEZI 21:48:[address] exam:->[facility] : 1970 Sex: M [...] unremarkable. IMPRESSION:No acute cardiopulmonary abnormality. Signed: Yvette Pablo MDReport Verified Date/Time: 11/07/2020 21:48:40 Reading Location: [address] Consult Reading Room chest 2 views 2020-10-18 Interface, External [facility] 2 Ris In - 11/07/2020 - Med ical 21:48:00 9:50 PM CDINAL Center REPORT TECHNIQUE: Two views of the [...] unremarkable. IMPRESSION:No acute cardiopulmonary abnormality. Signed: Yvette Pablo Verified Date/Time: 11/07/2020 21:48:40 Reading Location: [facility] [id number] Consult Reading Room
[2020-11-11 11:05] LABS: Absolute Lymphocytes (CBC) 0.5 K/uL (0.7-4.9); Basophils % 0.3 % (0-1.3); Hematocrit 45.6 % (39.6-49.0); Lymphocytes % 7.8 % (15.3-44.8); MPV 8.8 fL (7.6-11.3); RBC Red Blood Cell Count 4.86 M/uL (4.33-5.43)
[2020-11-11] MEDS ORDERED: ALBUTEROL 2.5 MG/3 ML NEB SOL ONE (11:06)
[2020-11-11] MEDS ORDERED: MAGNESIUM SULFATE 1 gm IVPB 1 GM/100 ML BAG IV ONE (11:06)
[2020-11-11] MEDS ORDERED: METHYLPREDNISOLONE 125 MG INJ ONE (11:06)
[2020-11-11] MEDS ORDERED: IPRATROPIUM BROM 0.5MG/2.5ML ONE (11:06)
--- NOTE | 2020-11-11 11:16 | RAD REPORT ---
EXAM DESCRIPTION: RAD - Chest Pa And Lat (2 Views) - 11/11/2020 10:27 am CLINICAL HISTORY: Cough;Dyspnea Chest pain. COMPARISON: Chest Single View dated 11/08/2020; Chest Single View dated 08/20/2020; Chest Single View d ated 06/11/2020; Chest Single View dated 06/07/2020 TECHNIQUE: PA and lateral views of the chest were obtained. FINDINGS: The lungs are hyperexpanded compatible with COPD. The heart is upper limit of normal in si ze. No fracture or aggressive bony process. IMPRESSION: COPD without acute process identified.
[2020-11-11 11:27] LABS: BUN Blood Urea Nitrogen 12 mg/dL (7-18); Bicarbonate 29 mmol/L (21-32); Glucose Level 102 mg/dL (74-106); Potassium 3.8 mmol/L (3.5-5.1); Sodium Level 139 mmol/L (136-145)
--- NOTE | 2020-11-12 17:19 | ER ---
Nurse's Notes [facility] Name: Daryn Ramos Jr Age: 50 yrs Sex: Male : 1970 Arrival Date: 11/11/2020 Time: 09: Bed 4 Private MD: Diagnosis: COPD/ Chronic obstructive pulmonary disease with (acute) exacerbation Presentation: 11/11 10:01 Chief complaint: Patient states: Cough, congestion, runny nose and difficulty breathing vg1 since yesterday. Has hx of COPD and asthma. Pt is sitting in tri pod position. Pt states feels better to breath this way. Coronavirus screen: Client denies travel out of the [place] in the last 14 days. Client presents with at least one sign or symptom that may indicate coronavirus-19. Standard/surgical mask placed on the client. Ebola Screen: Patient negative for fever greater than or equal to 101.5 degrees Fahrenheit, and additional compatible Ebola Virus Disease symptoms. Initial Sepsis Screen: Does the patient meet any 2 criteria? No. Patient's initial sepsis screen is negative. Does the patient have a suspected source of infection? No. Patient's initial sepsis screen is negative. Risk Assessment: Do you want to hurt yourself or someone else? Patient reports no desire to harm self or others. Onset of symptoms was November 10, 2020. 10:01 Method Of Arrival: Ambulatory vg1 10:01 Acuity: SALEEM 3 vg1 Triage Assessment: 10:04 General: Appears in no apparent distress. uncomfortable, Behavior is calm, cooperative. vg1 Pain: Denies pain. Respiratory: Reports shortness of breath at rest cough that is pain with cough Breath sounds with wheezes bilaterally. Onset: The symptoms/episode began/occurred yesterday, the patient has moderate shortness of breath. Historical: - Allergies: 10:04 cats/dogs; vg1 10:04 EGG/POULTRY; vg1 10:04 PENICILLINS; vg1 - Home Meds: 10:04 Albuterol Inhl [Active]; albuterol sulfate Oral [Active]; Prednisone Oral [Active]; vg1 Zithromax Oral [Active]; - PMHx: 10:04 Anxiety; Asthma; COPD; vg1 - Immunization history:: Adult Immunizations up to date, Client reports receiving the 2nd dose of the Covid vaccine. - Social history:: Smoking status: Patient reports the use of cigarette tobacco products, smokes one pack cigarettes per day. Screenin:39 Abuse screen: Denies threats or abuse. Denies injuries from another. Nutritional jl7 screening: No deficits noted. Tuberculosis screening: No symptoms or risk factors identified. Fall Risk IV access (20 points). Total Cano Fall Scale indicates No Risk (0-24 pts). Assessment: 10:39 General: Appears in no apparent distress. uncomfortable, Behavior is calm, cooperative. jl7 Pain: Denies pain. Neuro: Level of Consciousness is awake, alert, obeys commands, Oriented to person, place, time, situation. Cardiovascular: Patient's skin is warm and dry. Rhythm is regular. Respiratory: Reports shortness of breath cough that is Airway is patent Respiratory effort is even, unlabored, Respiratory pattern is regular, symmetrical, Breath sounds with wheezes bilaterally. Derm: Skin is pink, warm \T\ dry. 11:30 Reassessment: Patient appears in no apparent distress at this time. No changes from jl7 previously documented assessment. Patient and/or family updated on plan of care and expected duration. Pain level reassessed. Patient is alert, oriented x 3, equal unlabored respirations, skin warm/dry/pink. Vital Signs: 10:01 BP 113 / 77; Pulse 91; Resp 22; Temp 98.1; Pulse Ox 98% ; Weight 72.57 kg; Height 5 ft. vg1 11 in. (180.34 cm); Pain 0/10; 10:01 Body Mass Index 22.32 (72.57 kg, 180.34 cm) vg1 ED Course: 09:26 Patient arrived in ED. mr 10:04 Triage completed. vg1 10:04 Joan Smith [facility]-C [facility] kb 10:04 Jagdish Crespo MD is Attending Physician. kb 10:04 Arm band placed on. vg1 10:25 Chest Pa And Lat (2 Views) XRAY In Process Unspecified. EDMS 10:28 eJanna Viramontes RN is Primary Nurse. jl7 10:39 Patient has correct armband on for positive identification. Placed in gown. Bed in low jl7 position. Call light in reach. Side rails up X2. Pulse ox on. NIBP on. 10:55 Initial lab(s) drawn, by pa, sent to lab. Inserted saline lock: 20 gauge in right jl7 antecubital area, using aseptic technique. Blood collected. 11:30 No provider procedures requiring assistance completed. jl7 12:05 IV discontinued, intact, bleeding controlled, No redness/swelling at site. Pressure jl7 dressing applied. Administered Medications: 10:53 Drug: SOLU-Medrol (methylPrednisoLONE) 125 mg Route: IVP; Site: right antecubital; jl7 11:30 Follow up: Response: No adverse reaction jl7 10:55 Drug: Magnesium Sulfate 1 grams Route: IVPB; Infused Over: 30 mins; Site: right jl7 antecubital; 11:25 Follow up: Response: No adverse reaction; IV Status: Completed infusion jl7 10:55 Drug: DuoNeb (albuterol 2.5 mg, ipratropium 0.5 mg) (3:1) (2.5 mg - 0.5 mg) 3 ml Route: jl7 Nebulizer; 11:30 Follow up: Response: No adverse reaction jl7 Outcome: 11:50 Discharge ordered by . samantha 12:05 Discharged to home ambulatory. jl7 12:05 Condition: stable 12:05 Discharge instructions given to patient, Instructed on discharge instructions, follow up and referral plans. Demonstrated understanding of instructions, follow-up care. 12:05 Patient left the ED. jl7 Signatures: Dispatcher [employer] EDMS Joan Smith, MACHINE ADJUSTER HELPER-C MACHINE ADJUSTER HELPER-Michelle SimonsaRichelle ViramontesJeanna, RN RN jl7 Taylor Harvey RN RN vg1 Corrections: (The following items were deleted from the chart) 12:05 11:30 IV discontinued, intact, bleeding controlled, No redness/swelling at site. jl7 Pressure dressing applied, jl7
--- NOTE | 2020-11-12 17:19 | EDPHYS ---
Physician Documentation [facility] Name: Daryn Ramos Jr Age: 50 yrs Sex: Male : 1970 Arrival Date: 11/11/2020 Time: 09: Bed 4 Private MD: ED Physician Jagdish Crespo HPI: 11/11 11:59 This 50 yrs old Male presents to ER via Ambulatory with complaints of kb Breathing Difficulty. 11:59 The patient has shortness of breath at rest. Onset: The symptoms/episode began/occurred kb yesterday. Duration: The symptoms are continuous. The patient's shortness of breath is aggravated by nothing, is alleviated by nothing. Associated signs and symptoms: Pertinent positives: non-productive cough. Severity of symptoms: At their worst the symptoms were moderate in the emergency department the symptoms are unchanged. The patient has not experienced similar symptoms in the past. The patient has been recently seen at the [facility] Emergency Department. Pt reports shortness of breath and cough that started yesterday. Denies fever. States it started as a runny nose, moved into his chest and caused a flare up of copd/asthma. Historical: - Allergies: 10:04 cats/dogs; vg1 10:04 EGG/POULTRY; vg1 10:04 PENICILLINS; vg1 - Home Meds: 10:04 Albuterol Inhl [Active]; albuterol sulfate Oral [Active]; Prednisone Oral [Active]; vg1 Zithromax Oral [Active]; - PMHx: 10:04 Anxiety; Asthma; COPD; vg1 - Immunization history:: Adult Immunizations up to date, Client reports receiving the 2nd dose of the Covid vaccine. - Social history:: Smoking status: Patient reports the use of cigarette tobacco products, smokes one pack cigarettes per day. ROS: 11:57 Constitutional: Negative for fever, chills, and weight loss. kb 11:57 ENT: Positive for rhinorrhea, sinus congestion. 11:57 Respiratory: Positive for cough, shortness of breath, Negative for dyspnea on exertion, hemoptysis, orthopnea, pleurisy, sputum production, wheezing. 11:57 All other systems are negative. Exam: 11:58 Constitutional: This is a well developed, well nourished patient who is awake, alert, kb and in no acute distress. Head/Face: Normocephalic, atraumatic. ENT: Moist Mucous membranes Cardiovascular: Regular rate and rhythm with a normal S1 and S2. No gallops, murmurs, or rubs. No pulse deficits. Abdomen/GI: Soft, non-tender. No distention Skin: Warm, dry with normal turgor. Normal color. MS/ Extremity: Pulses equal, no cyanosis. Neurovascular intact. Full, normal range of motion. Neuro: Awake and alert, GCS 15, oriented to person, place, time, and situation. Moves all extremities. Normal gait. Psych: Awake, alert, with orientation to person, place and time. Behavior, mood, and affect are within normal limits. 11:58 Respiratory: mild respiratory distress is noted, Respirations: labored breathing, that is mild, Breath sounds: wheezing: inspiratory expiratory that is moderate, is scattered. Vital Signs: 10:01 BP 113 / 77; Pulse 91; Resp 22; Temp 98.1; Pulse Ox 98% ; Weight 72.57 kg; Height 5 ft. vg1 11 in. (180.34 cm); Pain 0/10; 10:01 Body Mass Index 22.32 (72.57 kg, 180.34 cm) vg1 MDM: 10:29 Patient medically screened. kb 11:57 Data reviewed: vital signs, nurses notes. Data interpreted: Pulse oximetry: on room air kb is 98 %. Interpretation: normal. 11:58 Counseling: I had a detailed discussion with the patient and/or guardian regarding: the kb historical points, exam findings, and any diagnostic results supporting the discharge/admit diagnosis, lab results, radiology results, the need for outpatient follow up, a family practitioner, to return to the emergency department if symptoms worsen or persist or if there are any questions or concerns that arise at home. Response to treatment: the patient's symptoms have markedly improved after treatment. 11/11 10:42 Order name: CBC with Diff; Complete Time: 11:15 kb 11/11 10:42 Order name: Basic Metabolic Panel; Complete Time: 11:28 kb 11/11 10:05 Order name: Chest Pa And Lat (2 Views) XRAY; Complete Time: 11:17 kb 11/11 10:42 Order name: IV Start; Complete Time: 11:17 kb Administered Medications: 10:53 Drug: SOLU-Medrol (methylPrednisoLONE) 125 mg Route: IVP; Site: right antecubital; jl7 11:30 Follow up: Response: No adverse reaction jl7 10:55 Drug: Magnesium Sulfate 1 grams Route: IVPB; Infused Over: 30 mins; Site: right jl7 antecubital; 11:25 Follow up: Response: No adverse reaction; IV Status: Completed infusion jl7 10:55 Drug: DuoNeb (albuterol 2.5 mg, ipratropium 0.5 mg) (3:1) (2.5 mg - 0.5 mg) 3 ml Route: jl7 Nebulizer; 11:30 Follow up: Response: No adverse reaction jl7 Disposition: 16:32 Co-signature as Attending Physician, Jagdish Crespo MD. rn Disposition Summary: 11/11/20 11:50 Discharge Ordered Location: Home kb Condition: Stable kb Diagnosis - COPD/ Chronic obstructive pulmonary disease with (acute) exacerbation kb Followup: kb - With: Emergency Department - When: As needed - Reason: Worsening of condition Followup: kb - With: Private Physician - When: 2 - 3 days - Reason: Recheck today's complaints, Continuance of care, Re-evaluation by your physician Discharge Instructions: - Discharge Summary Sheet kb - Chronic Obstructive Pulmonary Disease Exacerbation kb Forms: - Medication Reconciliation Form kb - Thank You Letter kb - Antibiotic Education kb - Prescription Opioid Use kb Signatures: Dispatcher [employer] Joan Mccloud, ASTROPHYSICS PROFESSOR-C ASTROPHYSICS PROFESSOR-Jagdish Ramon MD MD rn Leal, Jahala RN RN jl7 Taylor Harvey RN RN vg1
[2020-11-13 06:16] VITALS: BP 113/77; TEMP 98.1; O2SAT 98
== END 2020-11-11 12:05 | disposition home or self-care (01) ==
LOC: ER 09:24
DX: J44.1 Chronic obstructive pulmonary disease with (acute) exacerbation (principal); F17.210 Nicotine dependence, cigarettes, uncomplicated; F41.9 Anxiety disorder, unspecified; Z88.0 Allergy status to penicillin; Z91.012 Allergy to eggs; Z91.018 Allergy to other foods
CPT/HCPCS: 85025; 80048; 36415; 71046; J3475; J2930